=== PATIENT | female | born 1965 | race Caucasian/White ===

== ENCOUNTER 2016-11-05 15:50 | Emergency (ER) | payer OTHER ==
[~2016-11-05] VITALS: Ht 152.4 cm; Wt 87.1 kg
[~2016-11-05 15:50] MED LIST: ABILIFY 15MG15 MG PO; ABILIFY20 M1 PO; ALBUTEROL0.09 MG/A1 INH; AMOXIL500 MG PO; AUGMENTIN 500-1 EACH PO; AUGMENTIN 875-1 EACH PO; AUGMENTIN 875875 MG PO; CORTISPORIN 1%7.5 ML AD; GABAPENTIN300 M2 PO; GUAIFENESIN600 MG PO; HYDROXYZINE PAM50 MG PO; JANUVIA100 M1 PO; MEDROL4 M2 PO; METFORMIN HCL500 M3 PO; MOBIC 15MG15 MG PO; MYRBETRIQ50 MG PO; NICOTINE T21 MG/24 H TOP; OXYBUTYNIN CHLOR5 M2 PO; PAROXETINE HCL40 M1 PO; PREDNISONE 10MG10 M1 PO; PREDNISONE10 M2 PO; PREDNISONE20 MG PO; PROAIR HFA0.09 MG/Ac INH; PROAIR RESPICL90 MCG INH; SPIRIVA18 MCG INH; SYMBICORT 160/41 PUF INH; SYMBICORT 16010.2 GM INH; TRAZODONE100 MG PO; TRIAMCINOL0.1 %/453 TOP; TYLENOL #31 TAB PO; ZITHROMAX Z-PA250 M1 PO
--- NOTE | 2016-11-05 16:51 | ED GENERAL ADULT ---
See Addendum History of Present Illness General Chief Complaint: Dyspnea (COPD, CHF, Other) Stated Complaint: PT IS HAVING PROBLEM BREATHING SPO 94 W/OX 5 Source: patient Exam Limitations: no limitations Vital Signs & Intake/Output Vital Signs & Intake/Output Vital Signs Date Time Temp Pulse Resp B/P Pulse O2 O2 Flow FiO2 Ox Delivery Rate 11/06 2019 98.1 80 24 142/84 93 Nasal 3.0L Cannula 11/05 1807 93 Nasal 3.5L Cannula 11/05 1655 93 Nasal 3.0L Cannula 11/05 1556 98.5 112 20 142/91 93 Nasal 5.0L Cannula Allergies Coded Allergies: NO KNOWN ALLERGIES (10/24/15) Reconcile Medications Albuterol Sulfate 2.5 MG/3 ML (0.083 %) VIAL.NEB 1 Vial INH/GENET PRN RESPIRATORY (Reported) Albuterol Sulfate (Proair Respiclick) 90 MCG AER.POW.BA 2 PUFF INH Q4-6 PRN COPD Aripiprazole (Abilify) 20 MG TABLET 1 TAB PO QAM MENTAL HEALTH (Reported) Budesonide/Formoterol Fumarate (Symbicort 160-4.5 Mcg Inhaler) 10.2 GM HFA.AER.AD 2 PUF INH BID COPD Doxycycline Hyclate (Vibramycin) 100 MG CAPSULE 1 CAP PO BID bronchitis Gabapentin 300 MG CAPSULE 1 CAP PO TID MENTAL HEALTH (Reported) Loperamide HCl (Anti-Diarrheal) 2 MG CAPSULE 3 CAP PO DAILY DIARRHEA ( Reported) Oxybutynin Chloride 5 MG TABLET 1 TAB PO TID BLADDER (Reported) Paroxetine HCl 40 MG TABLET 1 TAB PO DAILY MENTAL HEALTH (Reported) Prednisone 20 MG TABLET 1 TAB PO BID bronchospasm Sitagliptin Phosphate (Januvia) 100 MG TABLET 1 TAB PO DAILY DIABETES Tiotropium [place] (Spiriva) 18 MCG CAP.W.DEV 1 CAP INH DAILY RESPIRATORY ( Reported) Triage Note: PT STATES SHE THINKS SHE IS HAVING COMPLICATIONS WITH HER COPD. PT STATES SHE IS COUGHING UP THICK GREEN/YELLOW SPUTUM AND HAS INCERASED SOB FOR THE PAST 3 DAYS Triage Nurses Notes Reviewed? yes Onset: Abrupt Duration: day(s): Timing: recent history HPI: 11/05/16 6:19 PM 51-year-old female presents to the emergency department for difficulty breathing. The patient has a history of bronchitis and COPD. She came into the emergency department for difficulty breathing. The onset of the symptoms were abrupt, the duration has been several days, the severity is significant as her symptoms required to come to the emergency department for care. On physical exam she does have bilateral expiratory wheezing. She is tachypnea,. She is tripoding. She was treated with albuterol and Atrovent nebulizer. Labs have been sent and a chest x-ray was ordered. The patient is on when necessary oxygen at home. (ROE CIFUENTES DO) Past History Travel History Traveled to [place] past 21 day No Medical History Any Pertinent Medical History? 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 No (ROE CIFUENTES DO) Review of Systems Review of Systems Constitutional: Denies: fever. EENTM: Denies: visual changes. Respiratory: Reports: cough, short of breath. Cardiovascular: Denies: chest pain. GI: Denies: abdominal pain. Genitourinary: Reports: no symptoms. Musculoskeletal: Reports: no symptoms. Skin: Reports: no symptoms. Neurological/Psychological: Reports: no symptoms. Hematologic/Endocrine: Reports: no symptoms. (ROE CIFUENTES DO) Physical Exam Physical Exam General Appearance: alert, awake, anxious, moderate distress Head: atraumatic, normal appearance Eyes: Bilateral: normal appearance, PERRL, EOMI. Ears, Nose, Throat: normal pharynx, normal ENT inspection, hearing grossly normal Neck: normal inspection, supple, full range of motion Respiratory: accessory muscle use, wheezing, respiratory distress Cardiovascular: tachycardic Peripheral Pulses: 4+ radial (R), 4+ radial (L) Gastrointestinal: non-tender Back: decreased range of motion Extremities: normal inspection Neurologic/Psych: no motor/sensory deficits, awake, alert, oriented x 3 Skin: intact, normal color, diaphoresis Core Measures ACS in differential dx? No CVA/TIA Diagnosis: No Severe Sepsis Present: No Septic Shock Present: No (ROE CIFUENTES DO) Progress Differential Diagnoses I considered the following diagnoses in my evaluation of the patient: [Pneumonia , pneumothorax, COPD exacerbation, bronchitis] Plan of Care: Orders Procedure Date/time Status TROPONIN LEVEL 11/05 1749 Complete COMPREHENSIVE METABOLIC PANEL 11/05 1749 Complete CBC WITHOUT DIFFERENTIAL 11/05 1749 Complete Laboratory Tests 11/05/16 1830: Anion Gap 7, Estimated GFR > 60, BUN/Creatinine Ratio 11.7, Glucose 136 H, Calcium 9.4, Total Bilirubin 0.7, AST 38 H, ALT 57 H, Alkaline Phosphatase 97, Troponin I < 0.01, Total Protein 6.9, Albumin 4.0, Globulin 2.9, Albumin/ Globulin Ratio 1.4, CBC w Diff NO MAN DIFF REQ, RBC 4.84, MCV 93.6, MCH 31.0, RDW 12.4, MPV 6.1 L, Gran % 70.1, Lymphocytes % 22.1, Monocytes % 5.1, Eosinophils % 2.2, Basophils % 0.5, Absolute Granulocytes 9.9 H, Absolute Lymphocytes 3.1, Absolute Monocytes 0.7 H, Absolute Eosinophils 0.3, Absolute Basophils 0.1, PUBS MCHC 33.2 Initial ED EKG: No ischemic changes (ROE CIFUENTES DO) Differential Diagnoses I considered the following diagnoses in my evaluation of the patient: Diagnostic Imaging: Viewed by Me: Radiology Read. Discussed w/RAD: Radiology Read. CXR Impression: No consolidation or edema Limited exam. In particular the left lower chest is difficult to assess Comments: Patient reports breathing better. Still with decreased breath sounds, scattered ronchi. Declines further neb treatments, needs to get home. Spouse does not like driving in the dark. (ELOISE GILLIS,CRYS) Departure Departure Referrals: MADISYN FARRIS APRN (PCP/Family) Departure Forms: Customer Survey General Discharge Information Prescriptions: Current Visit Scripts Prednisone 1 TAB PO BID #10 TAB Doxycycline Hyclate (Vibramycin) 1 CAP PO BID #20 CAP Comments The patient was treated with by mouth steroids, albuterol and Atrovent. Chest x -ray was ordered. The patient was signed out to Dr. Arvizu for reevaluation at 7 PM. (ROE ICFUENTES DO) Departure Disposition: HOME OR SELF CARE Condition: Stable Clinical Impression Primary Impression: Acute exacerbation of COPD with asthma Secondary Impressions: Bronchitis, Dyspnea, Leukocytosis, unspecified (ELOISE GILLIS,CRYS) Critical Care Note Critical Care Note Critical Care Time: 30-74 min (ROE CIFUENTES DO)
[2016-11-05] MEDS ORDERED: ALBUTEROL2.5 MG/3 M INH/SOL (17:02)
[2016-11-05] MEDS ORDERED: ANTI-DIARRHEAL2 M1 PO (17:03)
[2016-11-05 18:56] LABS: ABSOLUTE BASOPHIL COUNT 0.1 /CUMM (0.0-0.2); ABSOLUTE EOSINOPHIL COUNT 0.3 /CUMM (0.0-0.7); ABSOLUTE GRANULOCYTE CT 9.9 /CUMM (1.4-6.5); ABSOLUTE LYMPH COUNT 3.1 /CUMM (1.2-3.4); ABSOLUTE MONOCYTE COUNT 0.7 /CUMM (0.10-0.60); BASOPHIL % 0.5 % (0.0-2.0); EOSINOPHIL % 2.2 % (0-5); GRANULOCYTE % 70.1 % (42.2-75.2); HEMATOCRIT 45.3 % (37-47); MEAN CORPUSCULAR HGB CONC 33.2 G/DL (33.0-37.0); MEAN CORPUSCULAR VOLUME 93.6 FL (81.0-99.0); MEAN PLATELET VOLUME 6.1 FL (7.4-10.4); PLATELET COUNT 205 /CUMM (130-400); RBC DISTRIBUTION WIDTH 12.4 % (11.5-14.5); RED BLOOD CELL CT 4.84 /CUMM (4.20-5.40); WHITE BLOOD CELL COUNT 14.1 /CUMM (4.8-10.8)
--- NOTE | 2016-11-05 19:11 | RADIOLOGY REPORT ---
EXAMINATION: XR PORTABLE CHEST CLINICAL INFORMATION: Shortness of breath COMPARISON: 06/13/16 TECHNIQUE: Portable portable frontal view of the chest was obtained. FINDINGS: The study is underpenetrated. Lordotic projection. Cardiac size is unchanged. There is no mediastinal or hilar mass. The central vessels are cephalized. There is no edema. No definite consolidation. The left base is difficult to evaluate but no new focal abnormality suspected. No definite pneumothorax or pleural fluid. IMPRESSION: No consolidation or edema Limited exam. In particular the left lower chest is difficult to assess
[2016-11-05] MEDS ORDERED: PREDNISONE20 M1 PO ×2 (20:18→20:37)
[2016-11-05] MEDS ORDERED: VIBRAMYCIN100 MG PO ×2 (20:18→20:37)
[2016-11-05 20:20] VITALS: BP 142/84
== END 2016-11-05 20:42 ==
LOC: ERH 15:50
PROVIDERS: Emergency Medicine
DX: J44.1 Chronic obstructive pulmonary disease with (acute) exacerbation (principal); D72.829 Elevated white blood cell count, unspecified; R06.00 Dyspnea, unspecified; Z72.0 Tobacco use; E11.9 Type 2 diabetes mellitus without complications; Z79.84 Long term (current) use of oral hypoglycemic drugs
CPT/HCPCS: 1263; 99291

== ENCOUNTER 2016-12-07 15:13 | Emergency (ER) | payer OTHER ==
[~2016-12-07] VITALS: Ht 152.4 cm; Wt 89.4 kg
[~2016-12-07 15:13] MED LIST changes: +ALBUTEROL2.5 MG/3 M INH/SOL; +ANTI-DIARRHEAL2 M1 PO; +PREDNISONE20 M1 PO; +VIBRAMYCIN100 MG PO
--- NOTE | 2016-12-07 16:30 | ED DYSPNEA/ASTHMA COMPLAINT ---
History of Present Illness General Chief Complaint: Dyspnea (COPD, CHF, Other) Stated Complaint: SOB, HX OF COPD Source: patient, old records Exam Limitations: no limitations Vital Signs & Intake/Output Vital Signs & Intake/Output Vital Signs Date Time Temp Pulse Resp B/P B/P Pulse O2 O2 Flow FiO2 Mean Ox Delivery Rate 12/07 1743 98.0 96 20 137/82 93 Nasal 3.0L Cannula 12/07 1735 91 Nasal 2.0L Cannula 12/07 1650 94 Nasal 2.0L Cannula 12/07 1517 98.1 94 20 114/75 92 Room Air Allergies Coded Allergies: NO KNOWN ALLERGIES (10/24/15) Reconcile Medications Albuterol Sulfate 2.5 MG/3 ML (0.083 %) VIAL.NEB 1 Vial INH/GENET PRN RESPIRATORY (Reported) Albuterol Sulfate (Proair Respiclick) 90 MCG AER.POW.BA 2 PUFF INH Q4-6 PRN COPD Aripiprazole (Abilify) 20 MG TABLET 1 TAB PO QAM MENTAL HEALTH (Reported) Budesonide/Formoterol Fumarate (Symbicort 160-4.5 Mcg Inhaler) 10.2 GM HFA.AER.AD 2 PUF INH BID COPD Gabapentin 300 MG CAPSULE 1 CAP PO TID MENTAL HEALTH (Reported) Hydroxyzine Pamoate (Vistaril) 50 MG CAPSULE 1 CAP PO BID PRN ANXIETY ( Reported) Loperamide HCl (Anti-Diarrheal) 2 MG CAPSULE 3 CAP PO DAILY DIARRHEA ( Reported) Methylprednisolone. (Medrol) 4 MG TAB.DS.PK 1 DP PO AD copd 6 on day 1 then reduce by one tablet daily until gone Oxybutynin Chloride 5 MG TABLET 1 TAB PO TID BLADDER (Reported) Paroxetine HCl 40 MG TABLET 1 TAB PO DAILY MENTAL HEALTH (Reported) Sitagliptin Phosphate (Januvia) 100 MG TABLET 1 TAB PO DAILY DIABETES Tiotropium [place] (Spiriva) 18 MCG CAP.W.DEV 1 CAP INH DAILY RESPIRATORY ( Reported) Triage Note: PT STATES SHE HAS HX OF COPD AND IS CURRENTLY AND IS ON 2L OF O2VIA NC WITH 02 SAT OF 92% Triage Nurses Notes Reviewed? yes Onset: Gradual Duration: week(s): (1), constant Timing: recent history Severity: moderate Activities at Onset: none Prior Episodes/Possible Cause: chronic episodes Modifying Factors: Improves With: rest. Worsens With: movement, other (cough). Associated Symptoms: cough HPI: 51 Year old female with history of COPD on home oxygen, bipolar disorder and T2DM presents to the ER for evaluation complaining of progressively worsening shortness of breath nonproductive cough that she's had for the past 3-4 weeks worse over the past 1 week. She was seen here with symptoms began was prescribed prednisone and doxycycline. She states the steroids were helping however after stopping the medication the symptoms came back here she is followed by school health assistant Dr. abernathy. He is normally on 3 L of oxygen at nighttime and 5 L when she is ambulating. She denies having to recently go up on her O2 no fever no chills no chest pain pain with inspiration abdominal pain leg swelling. She is not currently on any steroids. She has not been using her nebulizer treatments at home. (NENA GRAMAJO) Past History Travel History Traveled to [place] past 21 day No Medical History Any Pertinent Medical History? 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 No (NENA GRAMAJO) Review of Systems Review of Systems Constitutional: Reports: see HPI. All Other Systems: Reviewed and Negative Comments Review of systems: See HPI, All other systems negative. Constitutional, no chills no fever, no malaise no weight loss HEENT: No visual changes no sore throat no congestion, no ear pain Cardiovascular: No chest pain , no palpitation , no orthopnea Skin: no rashes, no change in skin Respiratory: dyspnea cough no sputum no hemoptysis GI: No nausea no vomiting, no diarrhea, no bloating/constipation : No dysuria Muscle skeletal: No joint pain, no joint swelling, no back pain, no neck pain, Neurologic: No numbness no confusion, no headache Psych: No stress no depression,. Heme/endocrine: No bruising no bleeding Immunology: No lymphadenopathy (NENA GRAMAJO) Physical Exam Physical Exam General Appearance: well developed/nourished, alert, awake Respiratory: normal breath sounds Comments: Well-developed well-nourished person in no acute distress HEENT: Normal EENT exam; PERRL, EOMI, HEAD is atraumatic. moist mucous membranes. Neck: Supple, no lymphadenopathy, normal range of motion Back: Nontender, no CVA tenderness. Full range of motion Cardiovascular: Regular rate and rhythms no murmurs rubs or gallops, normal JVP Respiratory: Chest nontender.There were no bony deformities, no asymmetry. No respiratory distress. Patient speaking in full complete sentences. Wheezing bilaterally, no rhonchi Abdomen: Soft, nontender nondistended, no appreciable organomegaly. Normal bowel sounds. No rebound/guarding, No ascites. Extremity: No edema, full range of motion of extremities Neuro: Alert oriented x3, motor sensory normal, There were no obvious focal neurologic abnormalities. Skin: No appreciable rash on exposed skin, skin is warm and dry. Psych: Mood and affect is normal, memory and judgment is normal. Core Measures ACS in differential dx? Yes Severe Sepsis Present: No Septic Shock Present: No (NENA GRAMAJO) Progress Differential Diagnosis: asthma, AMI, costochondritis, CHF, COPD, musculoskeletal pain, pericarditis, pulmonary embolism, pneumonia, pneumothorax, unstable angina Plan of Care: Orders Procedure Date/time Status Telemetry/Act English Tutor 12/07 1631 Active BLOOD CULTURE 12/07 1631 Active TROPONIN LEVEL 12/07 1631 Complete COMPREHENSIVE METABOLIC PANEL 12/07 1631 Complete CBC WITHOUT DIFFERENTIAL 12/07 1631 Complete EKG 12/07 1631 Active Laboratory Tests 12/07/16 1719: Anion Gap 8, Estimated GFR > 60, BUN/Creatinine Ratio 12.0, Glucose 151 H, Calcium 9.0, Total Bilirubin 0.7, AST 44 H, ALT 50, Alkaline Phosphatase 90, Troponin I < 0.01, Total Protein 6.6, Albumin 3.7, Globulin 2.9, Albumin/ Globulin Ratio 1.3, CBC w Diff NO MAN DIFF REQ, RBC 4.72, MCV 93.3, MCH 31.2 H, RDW 12.9, MPV 6.2 L, Gran % 75.5 H, Lymphocytes % 18.0 L, Monocytes % 4.3, Eosinophils % 2.1, Basophils % 0.1, Absolute Granulocytes 11.1 H, Absolute Lymphocytes 2.6, Absolute Monocytes 0.6, Absolute Eosinophils 0.3, Absolute Basophils 0, PUBS MCHC 33.5 Microbiology 12/07 1719 BLOOD: Blood Culture - RECD 12/07 1631 BLOOD: Blood Culture - CAN Cancelled: Cancelled via OE: NOT NEEDED Old records reviewed DuoNeb Solu-Medrol IV ordered Case discussed with Dr. cifuentes. Old records reviewed showed the patient's white blood cell count is chronically elevated, sodium 133-134 baseline. 12/07/2016 5:52:41 PM patient reports to feeling improved she states that she does not feel she needs to be admitted. Pending labs x-ray, \ 12/07/2016 6:05:57 PM discussed with the patient off her lab results x-ray findings and plan of care. The patient is refusing admission she was able toward here oxygen saturation 90-91% on her baseline 5 L I discussed with her need for close follow-up with her school health assistant I offered her admission which she is refusing-I discussed with her the risks and harms of leaving prematurely which she understands prescription for prednisone provided (NOEMI GARCIA,NENA) Diagnostic Imaging: Viewed by Me: Radiology Read. Discussed w/RAD: Radiology Read. Radiology Impression: PATIENT: CHRISTI ASCENCIO PRESENT AGE: 51 PATIENT ACCOUNT NO: [id number] : 63 LOCATION: [facility] ORDERING PHYSICIAN: NENA GARCIA SERVICE DATE: 12/07/16 EXAM TYPE: RAD - XRY- PORTABLE CHEST XRAY EXAMINATION: XR PORTABLE CHEST CLINICAL INFORMATION: Dyspnea. COMPARISON: Chest x-ray 11/05/2016. TECHNIQUE: Portable AP view of the chest was obtained. FINDINGS: Low lung volumes. Central vascular congestion without overt edema. Difficult to assess for pleural effusions given overlying soft tissues. Cardiac size is unchanged. There are no acute osseous findings. IMPRESSION: Central vascular congestion without overt edema. Left lower chest remains difficult to assess secondary to overlying soft tissues. DICTATED BY: ROE FONTANA MD DATE/TIME DICTATED:12/07/161756 PATTERN MOLDER:MONIQUE DATE/TIME TRANSCRIBED:12/07/161756 CONFIDENTIAL, DO NOT COPY WITHOUT APPROPRIATE AUTHORIZATION. <Electronically signed in Other Vendor System> SIGNED BY: ROE FONTANA MD 12/07/16 8919 Initial ED EKG: nsr at 90, no acute st seg changes, normal axis Prior EKG: unchanged (01/2016) (NENA GRAMAJO) Departure Departure Disposition: STILL A PATIENT Condition: Stable Clinical Impression Primary Impression: COPD exacerbation Referrals: MADISYN FARRIS APRN (PCP/Family) Additional Instructions: Use your nebulizer machine as needed Medrol Dosepak as discussed follow up with your school health assistant Dr. abernathy tomorrow. Return to the emergency room at anytime sooner if your symptoms worsen or he have any other concerns. Departure Forms: Customer Survey General Discharge Information Prescriptions: Current Visit Scripts Methylprednisolone. (Medrol) 1 DP PO AD #1 DP 6 on day 1 then reduce by one tablet daily until gone (NENA GRAMAJO) PA/COMMERCIAL MARKETING SPECIALIST Co-Sign Statement Statement: ED Attending supervision documentation- [] I saw and evaluated the patient. I have also reviewed all the pertinent lab results and diagnostic results. I agree with the findings and the plan of care as documented in the PA's/COMMERCIAL MARKETING SPECIALIST's documentation. [x] I have reviewed the ED Record and agree with the PA's/COMMERCIAL MARKETING SPECIALIST's documentation. [] Additions or exceptions (if any) to the PAs/COMMERCIAL MARKETING SPECIALIST's note and plan are summarized below: [] (ROE CIFUENTES DO) Critical Care Note Critical Care Note Critical Care Time: non-applicable (NENA GRAMAJO)
[2016-12-07 17:29] LABS: ABSOLUTE BASOPHIL COUNT 0 /CUMM (0.0-0.2); ABSOLUTE EOSINOPHIL COUNT 0.3 /CUMM (0.0-0.7); ABSOLUTE GRANULOCYTE CT 11.1 /CUMM (1.4-6.5); ABSOLUTE LYMPH COUNT 2.6 /CUMM (1.2-3.4); ABSOLUTE MONOCYTE COUNT 0.6 /CUMM (0.10-0.60); BASOPHIL % 0.1 % (0.0-2.0); EOSINOPHIL % 2.1 % (0-5); GRANULOCYTE % 75.5 % (42.2-75.2); MEAN CORPUSCULAR HGB 31.2 PG (27.0-31.0); MEAN CORPUSCULAR HGB CONC 33.5 G/DL (33.0-37.0); MEAN CORPUSCULAR VOLUME 93.3 FL (81.0-99.0); MEAN PLATELET VOLUME 6.2 FL (7.4-10.4); PLATELET COUNT 226 /CUMM (130-400); RBC DISTRIBUTION WIDTH 12.9 % (11.5-14.5); RED BLOOD CELL CT 4.72 /CUMM (4.20-5.40); WHITE BLOOD CELL COUNT 14.7 /CUMM (4.8-10.8)
[2016-12-07 17:43] VITALS: BP 137/82
[2016-12-07] MEDS ORDERED: MEDROL4 M2 PO (17:54)
[2016-12-07] MEDS ORDERED: VISTARIL50 M1 PO (17:56)
--- NOTE | 2016-12-07 18:02 | RADIOLOGY REPORT ---
EXAMINATION: XR PORTABLE CHEST CLINICAL INFORMATION: Dyspnea. COMPARISON: Chest x-ray 11/05/2016. TECHNIQUE: Portable AP view of the chest was obtained. FINDINGS: Low lung volumes. Central vascular congestion without overt edema. Difficult to assess for pleural effusions given overlying soft tissues. Cardiac size is unchanged. There are no acute osseous findings. IMPRESSION: Central vascular congestion without overt edema. Left lower chest remains difficult to assess secondary to overlying soft tissues.
== END 2016-12-07 18:23 ==
LOC: ERH 15:13
PROVIDERS: Physician Assistant Medical
DX: J44.1 Chronic obstructive pulmonary disease with (acute) exacerbation (principal); Z72.0 Tobacco use
CPT/HCPCS: 1263; 87040; 93005; 93010; 96374; J2930

== ENCOUNTER 2017-09-14 13:52 | Emergency (ER) | payer OTHER ==
[~2017-09-14] VITALS: Ht 152.4 cm; Wt 92.5 kg
[~2017-09-14 13:52] MED LIST changes: +CYCLOBENZAPRINE5 M2 PO; +MOBIC7.5 M1 PO; +NICOTINE PATCH1 EAC2 TOP; +NYSTATIN15 G1 TOP; +VISTARIL50 M1 PO
--- NOTE | 2017-09-14 15:45 | ED GENERAL ADULT ---
History of Present Illness General Chief Complaint: General Adult Stated Complaint: "I THINK I HAVE THE FLU" Source: patient Exam Limitations: no limitations Vital Signs & Intake/Output Vital Signs & Intake/Output Vital Signs Date Time Temp Pulse Resp B/P B/P Pulse O2 O2 Flow FiO2 Mean Ox Delivery Rate 09/14 1619 99.4 115 18 138/76 98 Room Air 09/14 1514 97 09/14 1406 99.9 120 20 133/85 94 Nasal 4.0L Cannula Allergies Coded Allergies: No Known Allergies (09/14/17) Reconcile Medications Albuterol Sulfate 2.5 MG/3 ML (0.083 %) VIAL.NEB 1 Vial INH/GENET PRN RESPIRATORY (Reported) Albuterol Sulfate (Proair Respiclick) 90 MCG AER.POW.BA 2 PUFF INH Q4-6 PRN COPD Aripiprazole (Abilify) 20 MG TABLET 1 TAB PO QPM MENTAL HEALTH (Reported) Azithromycin (Zithromax) 250 MG TABLET 1 DP PO AD bronchitis 2 the first day followed by 1 for days 2-5 Benzonatate 200 MG CAPSULE 1 CAP PO TIDPRN cough Budesonide/Formoterol Fumarate (Symbicort 160-4.5 Mcg Inhaler) 10.2 GM HFA.AER.AD 2 PUF INH BID COPD Cyclobenzaprine HCl 5 MG TABLET 1 TAB PO TIDPRN PRN SPASM Gabapentin 300 MG CAPSULE 1 CAP PO TID MENTAL HEALTH (Reported) Hydroxyzine Pamoate (Vistaril) 50 MG CAPSULE 2 CAP PO QPM SLEEP (Reported) Loperamide HCl (Anti-Diarrheal) 2 MG CAPSULE 3 CAP PO DAILY DIARRHEA ( Reported) Meloxicam (Mobic) 7.5 MG TABLET 1 TAB PO DAILY PRN PAIN Nicotine (Nicotine Patch) 14 MG/24 HOUR PATCH.TD24 14 MG TOP Q24 smoking cessation APPLY 1 PATCH DAILY Nystatin 100,000 UNIT/GRAM CREAM..G. 1 ARUNA TOP BID FUNGAL INFECTION APPLY TWICE DAILY TO AFFECTED AREA Oseltamivir Phosphate (Tamiflu) 75 MG CAPSULE 1 CAP PO BID flu symptoms Oxybutynin Chloride 5 MG TABLET 1 TAB PO TID BLADDER (Reported) Paroxetine HCl 40 MG TABLET 1 TAB PO DAILY MENTAL HEALTH (Reported) Prednisone 50 MG TABLET 1 TAB PO DAILY bronchiutis Prednisone 10 MG TABLET 10 MG PO DAILY copd take 4 tabs on 05/20. take 3 tabs on 05/21 and 05/22 take 2 tabs on 05/23 and 05/24 take 1 tab on 05/25 and 05/26 Sitagliptin Phosphate (Januvia) 100 MG TABLET 1 TAB PO DAILY DIABETES Tiotropium [place] (Spiriva) 18 MCG CAP.W.DEV 1 CAP INH DAILY RESPIRATORY ( Reported) Triage Note: PT TO ED C/O FLU LIKE S/S SINCE YESTERDAY. PT WITH H/O COPD. PT ON 3LNC AT THIS TIME, STATES SHE WEARS IT WHEN SHE GOES OUT AND AT BEDTIME. STATES EVERYONE IN HER HOUSE HAS THE FLU. Triage Nurses Notes Reviewed? yes Onset: Abrupt Duration: day(s): Timing: recent history Injury Environment: home Severity: moderate, severe No Modifying Factors: none HPI: 52-year-old female comes into the emergency room with complaints of cough and runny nose sore throat congestion with some mucus production. Some associated subjective fever chills body aches at home. She reports that 2 family members in the house are sick with similar symptoms. She has a history of COPD and is on oxygen intermittently at home. She mainly uses it when she exerts herself. She reports that her breathing feels baseline for her. Denies any other associated symptoms at this time. Past History Travel History Traveled to [place] past 21 day No Medical History Any Pertinent Medical History? 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 No Review of Systems Review of Systems Constitutional: Reports: see HPI. EENTM: Reports: see HPI. Respiratory: Reports: see HPI. Cardiovascular: Reports: no symptoms. GI: Reports: no symptoms. Genitourinary: Reports: no symptoms. Musculoskeletal: Reports: no symptoms. Skin: Reports: no symptoms. Neurological/Psychological: Reports: no symptoms. Hematologic/Endocrine: Reports: no symptoms. Immunologic/Allergic: Reports: no symptoms. All Other Systems: Reviewed and Negative Physical Exam Physical Exam General Appearance: well developed/nourished, alert, awake Head: atraumatic Eyes: Bilateral: normal appearance. Ears, Nose, Throat: normal ENT inspection, hearing grossly normal Neck: normal inspection Respiratory: decreased breath sounds, wheezing Cardiovascular: regular rate/rhythm, tachycardia Back: normal inspection Extremities: normal inspection, no edema Neurologic/Psych: awake, alert, oriented x 3, normal gait, normal mood/affect Skin: intact, normal color Core Measures ACS in differential dx? No CVA/TIA Diagnosis: No Sepsis Present: No Sepsis Focused Exam Completed? No Progress Differential Diagnoses I considered the following diagnoses in my evaluation of the patient: Bronchitis, influenza, pneumonia, COPD, strep throat, sinusitis, Plan of Care: Orders Procedure Date/time Status THROAT CULTURE W/QUICK STREP 09/14 1540 Active RAPID VIRAL INFLUENZA A 09/14 1406 Complete Microbiology 09/14 1410 NASOPHARYN: Influenza Virus A & B Rapid Smear - COMP Diagnostic Imaging: Viewed by Me: Radiology Read. Discussed w/RAD: Radiology Read. Radiology Impression: PATIENT: CHRISTI ASCENCIO PRESENT AGE: 52 PATIENT ACCOUNT NO: [id number] : 63 LOCATION: [facility] ORDERING PHYSICIAN: Dany GARCIA SERVICE DATE: 09/14/17-1540 EXAM TYPE: RAD - XRY-CHEST XRAY, TWO VIEWS EXAMINATION: XR CHEST CLINICAL INFORMATION: Cough and shortness of breath. COMPARISON: Chest x-ray 05/14/2017 TECHNIQUE: 2 views of the chest were obtained. FINDINGS: No significant abnormality is noted involving the heart, lungs, mediastinum, bony thorax or soft tissues. IMPRESSION: Unremarkable examination. DICTATED BY: Santos Zacarias MD DATE/TIME DICTATED:1611 FLOOR HAND:MONIQUE DATE/TIME TRANSCRIBED:09/14/171611 CONFIDENTIAL, DO NOT COPY WITHOUT APPROPRIATE AUTHORIZATION. <Electronically signed in Other Vendor System> SIGNED BY: Santos Zacarias MD 09/14/17 9056 Initial ED EKG: none Comments: 09/14/2017 5:12:03 PM Patient clinically looks well. Patient is in no apparent distress. Patient is nontoxic-appearing. Patient resting comfortably in room. Symptoms are most consistent with influenza versus bronchitis. Due to her COPD history patient was covered with a Z-Cesar as well. Rest. Drink plenty of fluids. She feels well enough to go home. She is at her normal baseline of function in regards to her breathing. Departure Departure Disposition: HOME OR SELF CARE Condition: Stable Clinical Impression Primary Impression: Viral syndrome Referrals: Yenifer Richardson APRN (PCP/Family) Additional Instructions: Taking Z-Cesar, prednisone, and Tamiflu as prescribed. Follow-up with PCP. Return if any other concerns. Please go over all results of today's visit with your primary care doctor. Contact your primary care doctor to let them know you were here in the emergency room. There may be nonspecific findings which may not be related to your visit today here in the emergency room but may require further evaluation and chronic monitoring by your primary care doctor. If you had a laceration today the chance of foreign body always remains. You should follow-up with your primary care doctor for recheck in 3-5 days for a wound check. If you had an x-ray done there is a chance that a fracture could have been missed on initial read and you should follow-up with your primary care doctor for repeat x-rays if symptoms persist. If your blood pressure was elevated here in the emergency room please have rechecked by [facility] primary care doctor within the next 48. If you were prescribed a narcotic here in the emergency room or any type of controlled substances you're not allowed to drive while taking this medication or operate any type of heavy machinery. Narcotics can make you feel lightheaded dizziness nausea and can cause constipation. You may need to berry picker a stool softener. Thank you for choosing [facility] emergency room. Please return to the emergency room immediately if you have any other concerns worsening of symptoms. Departure Forms: Customer Survey General Discharge Information Prescriptions: Current Visit Scripts Azithromycin (Zithromax) 1 DP PO AD #6 TAB 2 the first day followed by 1 for days 2-5 Prednisone 1 TAB PO DAILY #5 TAB Oseltamivir Phosphate (Tamiflu) 1 CAP PO BID #10 CAP Benzonatate 1 CAP PO TIDPRN #30 CAP Critical Care Note Critical Care Note Critical Care Time: non-applicable
--- NOTE | 2017-09-14 16:15 | RADIOLOGY REPORT ---
EXAMINATION: XR CHEST CLINICAL INFORMATION: Cough and shortness of breath. COMPARISON: Chest x-ray 05/14/2017 TECHNIQUE: 2 views of the chest were obtained. FINDINGS: No significant abnormality is noted involving the heart, lungs, mediastinum, bony thorax or soft tissues. IMPRESSION: Unremarkable examination.
[2017-09-14 16:19] VITALS: BP 138/76
[2017-09-14] MEDS ORDERED: ZITHROMAX250 M2 PO (16:43)
[2017-09-14] MEDS ORDERED: BENZONATATE200 M1 PO (16:43)
[2017-09-14] MEDS ORDERED: TAMIFLU75 M1 PO (16:43)
[2017-09-14] MEDS ORDERED: PREDNISONE50 M1 PO (16:43)
== END 2017-09-14 16:50 ==
LOC: ERH 13:52
DX: B34.9 Viral infection, unspecified (principal)
CPT/HCPCS: 1263; 71046; 87804; 87804-59

== ENCOUNTER 2017-11-27 08:58 | Emergency (ER) | payer OTHER ==
[~2017-11-27] VITALS: Ht 154.9 cm; Wt 92.5 kg
[~2017-11-27 08:58] MED LIST changes: +BENZONATATE200 M1 PO; +PREDNISONE50 M1 PO; +TAMIFLU75 M1 PO; +ZITHROMAX250 M2 PO
--- NOTE | 2017-11-27 09:56 | ED INFLUENZA/URI COMPLAINT ---
History of Present Illness General Chief Complaint: General Adult Stated Complaint: CHEST CONGESTION,SOB,SORE THROAT Source: patient, old records Exam Limitations: no limitations Vital Signs & Intake/Output Vital Signs & Intake/Output Vital Signs Date Time Temp Pulse Resp B/P B/P Pulse O2 O2 Flow FiO2 Mean Ox Delivery Rate 11/27 1107 94 11/27 1000 94 Room Air 11/27 0917 98.1 105 26 127/80 92 Room Air Allergies Coded Allergies: No Known Allergies (09/14/17) Reconcile Medications Albuterol Sulfate 2.5 MG/3 ML (0.083 %) VIAL.NEB 1 Vial INH/GENET PRN RESPIRATORY (Reported) Albuterol Sulfate (Proair Respiclick) 90 MCG AER.POW.BA 2 PUFF INH Q4-6 PRN COPD Aripiprazole (Abilify) 20 MG TABLET 1 TAB PO QPM MENTAL HEALTH (Reported) Azithromycin (Zithromax) 250 MG TABLET 1 DP PO AD bronchitis 2 the first day followed by 1 for days 2-5 Benzonatate 200 MG CAPSULE 1 CAP PO TIDPRN cough Budesonide/Formoterol Fumarate (Symbicort 160-4.5 Mcg Inhaler) 10.2 GM HFA.AER.AD 2 PUF INH BID COPD Cyclobenzaprine HCl 5 MG TABLET 1 TAB PO TIDPRN PRN SPASM Gabapentin 300 MG CAPSULE 1 CAP PO TID MENTAL HEALTH (Reported) Hydroxyzine Pamoate (Vistaril) 50 MG CAPSULE 2 CAP PO QPM SLEEP (Reported) Loperamide HCl (Anti-Diarrheal) 2 MG CAPSULE 3 CAP PO DAILY DIARRHEA ( Reported) Meloxicam (Mobic) 7.5 MG TABLET 1 TAB PO DAILY PRN PAIN Nicotine (Nicotine Patch) 14 MG/24 HOUR PATCH.TD24 14 MG TOP Q24 smoking cessation APPLY 1 PATCH DAILY Nystatin 100,000 UNIT/GRAM CREAM..G. 1 ARUNA TOP BID FUNGAL INFECTION APPLY TWICE DAILY TO AFFECTED AREA Oseltamivir Phosphate (Tamiflu) 75 MG CAPSULE 1 CAP PO BID flu symptoms Oxybutynin Chloride 5 MG TABLET 1 TAB PO TID BLADDER (Reported) Paroxetine HCl 40 MG TABLET 1 TAB PO DAILY MENTAL HEALTH (Reported) Prednisone 50 MG TABLET 1 TAB PO DAILY bronchiutis Prednisone 10 MG TABLET 10 MG PO DAILY copd take 4 tabs on 05/20. take 3 tabs on 05/21 and 05/22 take 2 tabs on 05/23 and 05/24 take 1 tab on 05/25 and 05/26 Sitagliptin Phosphate (Januvia) 100 MG TABLET 1 TAB PO DAILY DIABETES Tiotropium [place] (Spiriva) 18 MCG CAP.W.DEV 1 CAP INH DAILY RESPIRATORY ( Reported) Triage Note: PT PRESENTS TO THE ER C/O SOB AND SINUS CONGESTION AND SORE THROAT. ONSET 2 DAYS AGO. PT STATES HER CHEST IS SORE ESPECIALLY WHEN SHE TAKES A DEEP BREATH. Triage Nurses Notes Reviewed? yes HPI: Patient presents for evaluation of sinus congestion, chest congestion, sore throat and shortness of breath that have been worsening over the past 2-3 days. Patient states she's been blowing her nose a lot and also refers an intermittent mild cough with occasional thick phlegm production. Patient denies any associated fever, chest pain, leg swelling, leg pain. Patient has been using her MDIs (Symbicort, Spiriva and pro-air) without improvement. Patient states she has had increasing and moderate to severe dyspnea on exertion. Nothing at this point seems to make her feel better than perhaps some mild improvement in symptoms with an increased use of her home oxygen. Past History Travel History Traveled to [place] past 21 day No Medical History Any Pertinent Medical History? 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 No Review of Systems Review of Systems Constitutional: Reports: no symptoms. EENTM: Reports: no symptoms. Respiratory: Reports: see HPI. Cardiovascular: Reports: no symptoms. GI: Reports: no symptoms. Genitourinary: Reports: no symptoms. Musculoskeletal: Reports: no symptoms. Skin: Reports: no symptoms. Neurological/Psychological: Reports: no symptoms. Hematologic/Endocrine: Reports: no symptoms. Immunologic/Allergic: Reports: no symptoms. All Other Systems: Reviewed and Negative Physical Exam Physical Exam Ears, Nose, Throat: SEE BELOW Comments: Gen.: Well-nourished, well-developed, no acute respiratory distress. Mild to moderate respiratory distress. Head: Normocephalic, atraumatic. Eyes: Normal inspection bilaterally Ears: Normal inspection bilaterally Nose: Normal inspection Throat/mouth : Moist mucosa Neck: Supple, full range of motion, no goiter Heart: Regular rate and rhythm, no murmurs rubs or gallops Lungs: Scattered end expiratory rhonchi without overt wheezing, bilaterally diminished breath sounds Chest: Nontender Back: Normal range of motion Abdomen: Soft, nontender, nondistended, normal bowel sounds Extremities: Normal range of motion grossly, equal radial pulses, no cyanosis clubbing or edema, calves nontender Neurologic: Cranial nerves grossly intact, speech is clear Skin: warm and dry Psychiatric: Calm, cooperative, no apparent delusions or hallucinations Core Measures Sepsis Present: No Sepsis Focused Exam Completed? No Progress Differential Diagnosis: copd EXACERBATION, chf, PNEUMONIA, BRONCHITIS Plan of Care: Orders Procedure Date/time Status TROPONIN LEVEL 11/27 912 Complete MAGNESIUM 11/27 912 Complete D-DIMER 11/27 912 Complete CBC WITHOUT DIFFERENTIAL 11/27 912 Complete BASIC METABOLIC PANEL 11/27 912 Complete EKG 11/27 899 Active Laboratory Tests 11/27/17 0950: Anion Gap 11, Estimated GFR > 60, BUN/Creatinine Ratio 15.0, Glucose 411 H, Calcium 8.9, Magnesium 1.5 L, Troponin I < 0.01, D-Dimer High Sensitivty < 200, CBC w Diff NO MAN DIFF REQ, RBC 4.35, MCV 92.5, MCH 31.1 H, MCHC 33.6, RDW 12.4 , MPV 6.6 L, Gran % 82.5 H, Lymphocytes % 11.6 L, Monocytes % 3.6, Eosinophils % 2.3, Basophils % 0, Absolute Granulocytes 10.6 H, Absolute Lymphocytes 1.5, Absolute Monocytes 0.5, Absolute Eosinophils 0.3, Absolute Basophils 0 Diagnostic Imaging: Discussed w/RAD: Radiology Read. CXR Impression: PATIENT: CHRISTI ASCENCIO PRESENT AGE: 52 PATIENT ACCOUNT NO: [id number] : 63 LOCATION: [facility] ORDERING PHYSICIAN: Navid Buitrago MD SERVICE DATE: 11/27/17 EXAM TYPE: RAD - XRY-CHEST XRAY, TWO VIEWS EXAMINATION: XR CHEST CLINICAL INFORMATION: Dyspnea, phlegm, chest congestion. History of COPD. COMPARISON: 09/14/2017 TECHNIQUE: 2 views performed. FINDINGS: The cardiac silhouette is mildly enlarged, unchanged. Normal pleural reflection is seen at the left cardiophrenic angle. The lungs and pleural spaces are clear. No evidence of pneumonia. Mild peribronchial thickening. IMPRESSION: No acute cardiopulmonary abnormality. DICTATED BY: Gareth Ambrose MD DATE/TIME DICTATED:11/27/171030 [employer]:MONIQUE DATE/ TIME TRANSCRIBED:11/27/171030 CONFIDENTIAL, DO NOT COPY WITHOUT APPROPRIATE AUTHORIZATION. <Electronically signed in Other Vendor System> SIGNED BY: Gareth Ambrose MD 11/27/171035 Initial ED EKG: SINUS TACHYCARDIA WITH A HEART RATE OF 106 Prior EKG: unchanged Comments: 11/27/2017 11:33:21 AM I updated Christi On Her Test Results after Her DuoNeb Treatment. Auscultation of Lungs Revealed Improved Air Entry and Scant End Expiratory Wheezing. She Has Just Had an Albuterol Nebulizer and Lung Sounds Are Now Clear. She Is Feeling Better. Departure Departure Disposition: HOME OR SELF CARE Condition: Stable Clinical Impression Primary Impression: COPD exacerbation Secondary Impressions: Viral syndrome Referrals: Yenifer Richardson APRN (PCP/Family) Additional Instructions: Continue your nebulizer and inhalers at home. Prednisone and amoxicillin as prescribed. Follow-up with your primary care physician or your special education math teacher on Wednesday for reevaluation. Return if any concerns or sudden worsening. Please note that there might be incidental findings in your evaluation that are unrelated to the current emergency department visit. Please notify your primary care doctor about this emergency department visit in order to obtain and review all of the testing performed so that these incidental findings can be monitored as needed. If you had an x-ray performed, please understand that some fractures may not be seen on the initial set of x-rays. If your symptoms persist you might need a repeat set of x-rays to check for such a fracture. If you had a laceration evaluated, please understand that foreign bodies such as glass or wood may not be visible to the naked eye or on plain x-rays. If the wound becomes red, swollen, increasingly more painful or if there is any drainage from the wound, please have it reevaluated by a physician for the possibility of a retained foreign body. If you're unable to follow up as outlined in the discharge instructions please return to the emergency department. Thank you for choosing the [facility] Emergency Department for your care. It was a pleasure to serve you today. Navid Buitrago M.D. [facility] Departure Forms: Customer Survey General Discharge Information Prescriptions: Current Visit Scripts Amoxicillin 1 CAP PO TID #21 CAP Prednisone (Deltasone) 3 TAB PO DAILY #12 TAB BEGIN TOMORROW Critical Care Note Critical Care Note Critical Care Time: 30-74 min
[2017-11-27 10:03] LABS: ABSOLUTE BASOPHIL COUNT 0 /CUMM (0.0-0.2); ABSOLUTE EOSINOPHIL COUNT 0.3 /CUMM (0.0-0.7); ABSOLUTE GRANULOCYTE CT 10.6 /CUMM (1.4-6.5); ABSOLUTE LYMPH COUNT 1.5 /CUMM (1.2-3.4); ABSOLUTE MONOCYTE COUNT 0.5 /CUMM (0.10-0.60); BASOPHIL % 0 % (0.0-2.0); EOSINOPHIL % 2.3 % (0-5); GRANULOCYTE % 82.5 % (42.2-75.2); HEMATOCRIT 40.2 % (37-47); MEAN CORPUSCULAR HGB 31.1 PG (27.0-31.0); MEAN CORPUSCULAR HGB CONC 33.6 G/DL (33.0-37.0); MEAN CORPUSCULAR VOLUME 92.5 FL (81.0-99.0); MEAN PLATELET VOLUME 6.6 FL (7.4-10.4); PLATELET COUNT 199 /CUMM (130-400); RBC DISTRIBUTION WIDTH 12.4 % (11.5-14.5); RED BLOOD CELL CT 4.35 /CUMM (4.20-5.40); WHITE BLOOD CELL COUNT 12.8 /CUMM (4.8-10.8)
--- NOTE | 2017-11-27 10:36 | RADIOLOGY REPORT ---
EXAMINATION: XR CHEST CLINICAL INFORMATION: Dyspnea, phlegm, chest congestion. History of COPD. COMPARISON: 09/14/2017 TECHNIQUE: 2 views performed. FINDINGS: The cardiac silhouette is mildly enlarged, unchanged. Normal pleural reflection is seen at the left cardiophrenic angle. The lungs and pleural spaces are clear. No evidence of pneumonia. Mild peribronchial thickening. IMPRESSION: No acute cardiopulmonary abnormality.
[2017-11-27 11:30] VITALS: BP 133/86
[2017-11-27] MEDS ORDERED: DELTASONE20 MG PO (11:36)
[2017-11-27] MEDS ORDERED: AMOXICILLIN500 M2 PO (11:36)
== END 2017-11-27 11:43 ==
LOC: ERH 08:58
PROVIDERS: Emergency Medicine
DX: J44.1 Chronic obstructive pulmonary disease with (acute) exacerbation (principal); B34.9 Viral infection, unspecified; Z87.891 Personal history of nicotine dependence
CPT/HCPCS: 1263; 71046; 93005; 93010

== ENCOUNTER 2018-01-12 10:59 | Emergency (ER) | payer OTHER ==
[~2018-01-12] VITALS: Ht 152.4 cm; Wt 92.5 kg
[~2018-01-12 10:59] MED LIST changes: +AMOXICILLIN500 M2 PO; +DELTASONE20 MG PO
--- NOTE | 2018-01-12 12:00 | RADIOLOGY REPORT ---
EXAMINATION: XR CHEST CLINICAL INFORMATION: SOB. COMPARISON: None TECHNIQUE: 2 views of the chest were obtained. FINDINGS: The lungs are well-expanded and clear. There is mild cardiomegaly. Pulmonary vascularity is normal. No gross bony abnormality seen. IMPRESSION: Mild cardiomegaly otherwise no acute cardiopulmonary process seen.
[2018-01-12 12:11] LABS: ABSOLUTE BASOPHIL COUNT 0 /CUMM (0.0-0.2); ABSOLUTE EOSINOPHIL COUNT 0.3 /CUMM (0.0-0.7); ABSOLUTE GRANULOCYTE CT 9.7 /CUMM (1.4-6.5); ABSOLUTE LYMPH COUNT 1.6 /CUMM (1.2-3.4); ABSOLUTE MONOCYTE COUNT 0.6 /CUMM (0.10-0.60); BASOPHIL % 0.3 % (0.0-2.0); EOSINOPHIL % 2.6 % (0-5); GRANULOCYTE % 79.5 % (42.2-75.2); HEMATOCRIT 40.1 % (37-47); MEAN CORPUSCULAR HGB 31.6 PG (27.0-31.0); MEAN CORPUSCULAR HGB CONC 34.6 G/DL (33.0-37.0); MEAN CORPUSCULAR VOLUME 91.3 FL (81.0-99.0); MEAN PLATELET VOLUME 6.7 FL (7.4-10.4); PLATELET COUNT 233 /CUMM (130-400); RBC DISTRIBUTION WIDTH 11.7 % (11.5-14.5); RED BLOOD CELL CT 4.39 /CUMM (4.20-5.40); WHITE BLOOD CELL COUNT 12.2 /CUMM (4.8-10.8)
[2018-01-12] MEDS ORDERED: MELATONIN5 M7 (13:24)
[2018-01-12] MEDS ORDERED: LOSARTAN POTASS50 M1 PO (13:24)
--- NOTE | 2018-01-12 13:30 | ED DYSPNEA/ASTHMA COMPLAINT ---
History of Present Illness General Chief Complaint: Dyspnea (COPD, CHF, Other) Stated Complaint: SOB SINCE WEDNESDAY/SORE THROAT Source: patient Exam Limitations: no limitations Vital Signs & Intake/Output Vital Signs & Intake/Output Vital Signs Date Time Temp Pulse Resp B/P B/P Pulse O2 O2 Flow FiO2 Mean Ox Delivery Rate 01/12 1422 95 Nasal 5.0L Cannula 01/12 1422 118 20 163/81 93 Room Air 01/12 1352 145/80 01/12 1343 109 20 92 Room Air 01/12 1315 93 Room Air 01/12 1253 98.7 102 20 138/91 93 Nasal 3.0L Cannula 01/12 1105 98.2 109 20 142/85 96 Nasal 3.0L Cannula Allergies Coded Allergies: No Known Allergies (09/14/17) Reconcile Medications Albuterol Sulfate 2.5 MG/3 ML (0.083 %) VIAL.NEB 1 Vial INH/GENET PRN RESPIRATORY (Reported) Albuterol Sulfate (Proair Respiclick) 90 MCG AER.POW.BA 2 PUFF INH Q4-6 PRN COPD Amoxicillin 875 MG TABLET 1 TAB PO BID bronchitis Aripiprazole (Abilify) 20 MG TABLET 1 TAB PO QPM MENTAL HEALTH (Reported) Budesonide/Formoterol Fumarate (Symbicort 160-4.5 Mcg Inhaler) 10.2 GM HFA.AER.AD 2 PUF INH BID COPD Gabapentin 300 MG CAPSULE 1 CAP PO TID MENTAL HEALTH (Reported) Hydroxyzine Pamoate (Vistaril) 50 MG CAPSULE 2 CAP PO QPM SLEEP (Reported) Loperamide HCl (Anti-Diarrheal) 2 MG CAPSULE 3 CAP PO DAILY DIARRHEA ( Reported) Losartan Potassium 50 MG TABLET 1 TAB PO DAILY HTN (Reported) Melatonin 5 MG TABLET SLEEP (Reported) Nystatin 100,000 UNIT/ML ORAL.SUSP 5 ML PO 4 TIMES/DAY thrush Oxybutynin Chloride 5 MG TABLET 1 TAB PO TID BLADDER (Reported) Paroxetine HCl 40 MG TABLET 1 TAB PO DAILY MENTAL HEALTH (Reported) Prednisone 10 MG TABLET 1 DOSE PO DAILY bronchitis take 5 tabs day 1 4 tabs day 2 3 tabs day 3 2 tabs day 4 1 tab day 5 Sitagliptin Phosphate (Januvia) 100 MG TABLET 1 TAB PO DAILY DIABETES Tiotropium [place] (Spiriva) 18 MCG CAP.W.DEV 1 CAP INH DAILY RESPIRATORY ( Reported) Triage Note: PT C/O SOB SINCE WEDNESDAY. STATES SHE IS HAVING TROUBLE BREATHING EVEN WITH THE OXYGEN ON. SHE USUALLY ONLY USES O2 WHEN SHE GOES OUT BUT NOW SHE CAN ONLY WALK A FEW FEET WITHOUT GETTING SOB. PT DENIES CP BUT STATES SHE DOES HAVE A ST. TC DONE IN TRIAGE Triage Nurses Notes Reviewed? yes Onset: Gradual Duration: day(s): Timing: recent history Severity: moderate HPI: 52YO FEMALE with hx of COPD on home O2, DM, bipolar disorder presents to ED complaining of dyspnea and sore throat x 5 days. Patient took over the counter medication for sinus pain and reports mild relief. The patient reports cough intermittently productive of green sputum. The patient denies sick contact. Patient states that a few weeks ago she had thrush she began taking nystatin swish and swallow however she did not finish full course. Patient does report yellow discoloration to her tongue and is wondering if she has thrush at this time. The patient denies chest pain, nausea, vomiting, fevers, chills, hemoptysis. (Denita GARCIA,Patti Swann) Past History Travel History Traveled to [place] past 21 day No Medical History Any Pertinent Medical History? 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 No (Patti Casey) Review of Systems Review of Systems Constitutional: Reports: no symptoms. EENTM: Reports: see HPI. Respiratory: Reports: see HPI. Cardiovascular: Reports: no symptoms. GI: Reports: no symptoms. Genitourinary: Reports: no symptoms. Musculoskeletal: Reports: no symptoms. Skin: Reports: no symptoms. Neurological/Psychological: Reports: no symptoms. Hematologic/Endocrine: Reports: no symptoms. Immunologic/Allergic: Reports: no symptoms. All Other Systems: Reviewed and Negative (Denita GARCIA,Patti Swann) Physical Exam Physical Exam General Appearance: well developed/nourished, no apparent distress, alert, awake Head: atraumatic, normal appearance Eyes: Bilateral: normal appearance. Ears, Nose, Throat: hearing grossly normal, erythema on tongue and pharynx with yellow discoloration to tongue Neck: normal inspection, supple, full range of motion Respiratory: normal breath sounds, no respiratory distress, lungs clear Cardiovascular: tachycardia Peripheral Pulses: 2+ radial (R), 2+ radial (L) Extremities: normal inspection, normal range of motion, bilateral mild nonpitting edema Neurologic/Psych: awake, alert, oriented x 3 Skin: intact, normal color, warm/dry Core Measures ACS in differential dx? Yes CVA/TIA Diagnosis No Sepsis Present: No Sepsis Focused Exam Completed? No (Denita GARCIA,Patti Swann) Progress Differential Diagnosis: AMI, bronchitis, CHF, COPD, pulmonary embolism, pneumonia, pneumothorax, unstable angina Plan of Care: Orders Procedure Date/time Status FingerStick- Glucose 01/12 1315 Active TROPONIN LEVEL 01/12 1128 Complete COMPREHENSIVE METABOLIC PANEL 01/12 1128 Complete CBC WITHOUT DIFFERENTIAL 01/12 1128 Complete EKG 01/12 1108 Active THROAT CULTURE W/QUICK STREP 01/12 1107 Active Laboratory Tests 01/12/ 1156: Anion Gap 13, Estimated GFR > 60, BUN/Creatinine Ratio 12.5, Glucose 408 H, Calcium 9.5, Total Bilirubin 0.5, AST 89 H, ALT 89 H, Alkaline Phosphatase 105 , Troponin I < 0.01, Total Protein 6.5, Albumin 3.6, Globulin 2.9, Albumin/ Globulin Ratio 1.2, CBC w Diff NO MAN DIFF REQ, RBC 4.39, MCV 91.3, MCH 31.6 H, MCHC 34.6, RDW 11.7, MPV 6.7 L, Gran % 79.5 H, Lymphocytes % 12.9 L, Monocytes % 4.7, Eosinophils % 2.6, Basophils % 0.3, Absolute Granulocytes 9.7 H, Absolute Lymphocytes 1.6, Absolute Monocytes 0.6, Absolute Eosinophils 0.3, Absolute Basophils 0 Patient's rapid strep test is negative. Patient's labs are stable compared to her previous studies. Patient has hyperglycemia on chemistry panel however fingerstick blood glucoses around 300. Patient admits to being noncompliant with her diabetic medication, she also ate pie this morning. Patient informed her high reading and counseled on medication adherence and diabetic diet. Patient's chest x-ray is clear, no evidence of pneumonia. Physical exam shows signs of possible thrush. We will treat with prednisone and amoxicillin for her likely bronchitis and nystatin for possible thrush. Patient ambulatory on oxygen with stable O2 saturation. She feels comfortable going home at this time. Patient's O2 saturation is normally between 92-93% at rest on room air, she states this is her baseline. The diagnosis of pulmonary embolism was considered however she has no chest pain, no recent travels, no hemoptysis, no unilateral leg swelling, no history of blood clots, low suspicion for acute pulmonary embolism based on her current symptoms including mucus production and sore throat. The patient is in no acute distress, nontoxic appearing. The patient agrees with the plan of care. The patient was seen and evaluated by Dr. Martinez who agrees with our plan. Diagnostic Imaging: Viewed by Me: Radiology Read. Discussed w/RAD: Radiology Read. CXR Impression: PATIENT: CHRISTI ASCENCIO PRESENT AGE: 52 PATIENT ACCOUNT NO: [id number] : 63 LOCATION: [facility] ORDERING PHYSICIAN: Navid Jose DO (TBS) SERVICE DATE: 01/12/18 EXAM TYPE: RAD - XRY- CHEST XRAY, TWO VIEWS EXAMINATION: XR CHEST CLINICAL INFORMATION: SOB. COMPARISON: None TECHNIQUE: 2 views of the chest were obtained. FINDINGS: The lungs are well-expanded and clear. There is mild cardiomegaly. Pulmonary vascularity is normal. No gross bony abnormality seen. IMPRESSION: Mild cardiomegaly otherwise no acute cardiopulmonary process seen. DICTATED BY: Eder Awan MD DATE/TIME DICTATED:01/12/181155 OVERLOCK SLEEVE SETTER:MONIQUE DATE/ TIME TRANSCRIBED:01/12/181155 CONFIDENTIAL, DO NOT COPY WITHOUT APPROPRIATE AUTHORIZATION. <Electronically signed in Other Vendor System> SIGNED BY: Eder Awan MD 01/12/18 1200 Initial ED EKG: sinus tachycardia @109bpm, nonspecific ST changes Prior EKG: unchanged (11/27/17) (Denita GARCIA,Patti Swann) Departure Departure Disposition: HOME OR SELF CARE Condition: Stable Clinical Impression Primary Impression: Dyspnea Qualifiers: Dyspnea type: unspecified Qualified Code: R06.00 - Dyspnea, unspecified Secondary Impressions: Oral candidiasis Pharyngitis Qualifiers: Pharyngitis/tonsillitis etiology: unspecified etiology Qualified Code: J02.9 - Acute pharyngitis, unspecified Referrals: Yenifer Richardson APRN (PCP/Family) Additional Instructions: Take amoxicillin as prescribed. Take full steroid pack. Take nystatin swish and swallow as prescribed. Follow up with your primary care doctor. Return if you have worsening symptoms or other concerns. Please note that there might be incidental findings in your evaluation that are unrelated to the current emergency department visit. Please notify your primary care doctor about this emergency department visit in order to obtain and review all of the testing performed so that these incidental findings can be monitored as needed. If you had an x-ray performed, please understand that some fractures may not be seen on the initial set of x-rays. If your symptoms persist you might need a repeat set of x-rays to check for such a fracture. If you had a laceration evaluated, please understand that foreign bodies such as glass or wood may not be visible to the naked eye or on plain x-rays. If the wound becomes red, swollen, increasingly more painful or if there is any drainage from the wound, please have it reevaluated by a physician for the possibility of a retained foreign body. If you're unable to follow up as outlined in the discharge instructions please return to the emergency department. Thank you for choosing the [facility] Emergency Department for your care. It was a pleasure to serve you today. Departure Forms: Customer Survey General Discharge Information Prescriptions: Current Visit Scripts Amoxicillin 1 TAB PO BID #14 TAB Prednisone 1 DOSE PO DAILY #15 TAB take 5 tabs day 1 4 tabs day 2 3 tabs day 3 2 tabs day 4 1 tab day 5 Nystatin 5 ML PO 4 TIMES/DAY #200 ML (Patti Casey) PA/AUTOMOBILE ENGINE ASSEMBLER Co-Sign Statement Statement: ED Attending supervision documentation- [] I saw and evaluated the patient. I have also reviewed all the pertinent lab results and diagnostic results. I agree with the findings and the plan of care as documented in the PA's/AUTOMOBILE ENGINE ASSEMBLER's documentation. [x] I have reviewed the ED Record and agree with the PA's/AUTOMOBILE ENGINE ASSEMBLER's documentation. [] Additions or exceptions (if any) to the PAs/AUTOMOBILE ENGINE ASSEMBLER's note and plan are summarized below: [] (Gareth Martinez DO) Critical Care Note Critical Care Note Critical Care Time: non-applicable (Denita GARCIA,Patti Swann)
[2018-01-12 14:22] VITALS: BP 163/81
[2018-01-12] MEDS ORDERED: AMOXICILLIN875 M1 PO (15:46)
[2018-01-12] MEDS ORDERED: PREDNISONE10 M2 PO (15:46)
[2018-01-12] MEDS ORDERED: NYSTATIN100000 UNI PO (15:46)
== END 2018-01-12 16:10 ==
LOC: ERH 10:59
PROVIDERS: Emergency Medicine
DX: R06.00 Dyspnea, unspecified (principal); B37.0 Candidal stomatitis; J02.9 Acute pharyngitis, unspecified
CPT/HCPCS: 71046; 93005; 93010

== ENCOUNTER 2018-01-23 20:18 | Inpatient (IN) | payer OTHER ==
[~2018-01-23] VITALS: Ht 152.4 cm; Wt 85.0 kg
[~2018-01-23 20:18] MED LIST changes: +AMOXICILLIN875 M1 PO; +LOSARTAN POTASS50 M1 PO; +MELATONIN5 M7; +NYSTATIN100000 UNI PO
[2018-01-23 21:12] LABS: ABSOLUTE BASOPHIL COUNT 0 /CUMM (0.0-0.2); ABSOLUTE EOSINOPHIL COUNT 0 /CUMM (0.0-0.7); ABSOLUTE GRANULOCYTE CT 7.1 /CUMM (1.4-6.5); ABSOLUTE LYMPH COUNT 1.5 /CUMM (1.2-3.4); ABSOLUTE MONOCYTE COUNT 0.9 /CUMM (0.10-0.60); BASOPHIL % 0.5 % (0.0-2.0); EOSINOPHIL % 0.3 % (0-5); GRANULOCYTE % 74.6 % (42.2-75.2); HEMATOCRIT 42.9 % (37-47); MEAN CORPUSCULAR HGB 31.2 PG (27.0-31.0); MEAN CORPUSCULAR HGB CONC 34.2 G/DL (33.0-37.0); MEAN CORPUSCULAR VOLUME 91.2 FL (81.0-99.0); MEAN PLATELET VOLUME 6.2 FL (7.4-10.4); PLATELET COUNT 167 /CUMM (130-400); RBC DISTRIBUTION WIDTH 11.9 % (11.5-14.5); RED BLOOD CELL CT 4.71 /CUMM (4.20-5.40); WHITE BLOOD CELL COUNT 9.5 /CUMM (4.8-10.8)
--- NOTE | 2018-01-23 21:25 | ED DYSPNEA/ASTHMA COMPLAINT ---
History of Present Illness General Chief Complaint: Dyspnea (COPD, CHF, Other) Stated Complaint: BIBA FOR EVAL DIFF BREATHER Source: patient Exam Limitations: no limitations Vital Signs & Intake/Output Vital Signs & Intake/Output Vital Signs Date Time Temp Pulse Resp B/P B/P Pulse O2 O2 Flow FiO2 Mean Ox Delivery Rate 01/24 0006 98.2 107 18 133/76 93 Nasal 5.0L Cannula 01/23 2235 93 Nasal 5.0L Cannula 01/23 2207 98.8 118 22 154/90 94 Nasal 4.0L Cannula 01/23 2135 116 22 132/80 93 Nasal 4.0L Cannula 01/23 2134 98.3 01/23 2122 91 Nasal 5.0L Cannula 01/23 2111 99.8 01/24 2020 99.7 120 24 174/88 93 Nasal 5.0L Cannula ED Intake and Output 01/24 0000 01/23 1200 Intake Total 350 Output Total Balance 350 Intake, IV 350 Patient 204 lb Weight Allergies Coded Allergies: No Known Allergies (09/14/17) Reconcile Medications Albuterol Sulfate 2.5 MG/3 ML (0.083 %) VIAL.NEB 1 Vial INH/GENET PRN RESPIRATORY (Reported) Albuterol Sulfate (Proair Respiclick) 90 MCG AER.POW.BA 2 PUFF INH Q4-6 PRN COPD Amoxicillin 875 MG TABLET 1 TAB PO BID bronchitis Aripiprazole (Abilify) 20 MG TABLET 1 TAB PO QPM MENTAL HEALTH (Reported) Budesonide/Formoterol Fumarate (Symbicort 160-4.5 Mcg Inhaler) 10.2 GM HFA.AER.AD 2 PUF INH BID COPD Gabapentin 300 MG CAPSULE 1 CAP PO TID MENTAL HEALTH (Reported) Hydroxyzine Pamoate (Vistaril) 50 MG CAPSULE 2 CAP PO QPM SLEEP (Reported) Loperamide HCl (Anti-Diarrheal) 2 MG CAPSULE 3 CAP PO DAILY DIARRHEA ( Reported) Losartan Potassium 50 MG TABLET 1 TAB PO DAILY HTN (Reported) Melatonin 5 MG TABLET SLEEP (Reported) Nystatin 100,000 UNIT/ML ORAL.SUSP 5 ML PO 4 TIMES/DAY thrush Oxybutynin Chloride 5 MG TABLET 1 TAB PO TID BLADDER (Reported) Paroxetine HCl 40 MG TABLET 1 TAB PO DAILY MENTAL HEALTH (Reported) Prednisone 10 MG TABLET 1 DOSE PO DAILY bronchitis take 5 tabs day 1 4 tabs day 2 3 tabs day 3 2 tabs day 4 1 tab day 5 Sitagliptin Phosphate (Januvia) 100 MG TABLET 1 TAB PO DAILY DIABETES Tiotropium [place] (Spiriva) 18 MCG CAP.W.DEV 1 CAP INH DAILY RESPIRATORY ( Reported) Triage Note: BIBA , SOB ,COPD INCREASING SOB OVER 2-3 DAYS Triage Nurses Notes Reviewed? yes Onset: Abrupt Duration: day(s): (3), constant, continues in ED, getting worse Timing: recent history Severity: moderate, severe Activities at Onset: none Prior Episodes/Possible Cause: frequent episodes Associated Symptoms: cough LMP (ages 10-50): post menopausal : No HPI: 53-year-old female past medical history of COPD presents for evaluation of cough , shortness of breath and fever. Patient states that she was seen here several weeks ago for similar symptoms. She was told that she should be admitted but declined. She was given antibiotics and steroids and was feeling better until 2 or 3 days ago. She reports cough productive of green sputum. She reports shortness of breath is worse on exertion. She's had increased oxygen demand. Normally she only is on oxygen at night but she's been needing to use more oxygen 24 hours a day. She reports she has had sweats and chills and low-grade temps at home. No hemoptysis no chest pain. She is a former smoker. (Jackson Rivera) Past History Travel History Traveled to [place] past 21 day No Medical History Any Pertinent Medical History? 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 No (Jackson Rivera) Review of Systems Review of Systems Constitutional: Reports: chills, diaphoresis, fever, malaise, weakness. EENTM: Reports: no symptoms. Respiratory: Reports: see HPI, cough, short of breath, sputum production, wheezing. Cardiovascular: Reports: no symptoms. GI: Reports: no symptoms. Genitourinary: Reports: no symptoms. Musculoskeletal: Reports: no symptoms. Skin: Reports: no symptoms. Neurological/Psychological: Reports: no symptoms. Hematologic/Endocrine: Reports: no symptoms. Immunologic/Allergic: Reports: no symptoms. All Other Systems: Reviewed and Negative (Jackson Rivera) Physical Exam Physical Exam General Appearance: well developed/nourished, no apparent distress, alert, awake , obese Head: atraumatic, normal appearance Eyes: Bilateral: normal appearance, PERRL, EOMI. Ears, Nose, Throat: hearing grossly normal Neck: normal inspection, supple, full range of motion Respiratory: chest non-tender, no respiratory distress, decreased breath sounds, rhonchi, wheezing Cardiovascular: regular rate/rhythm, normal peripheral pulses Peripheral Pulses: 2+ radial (R), 2+ radial (L) Gastrointestinal: soft, non-tender Extremities: normal inspection, normal range of motion, no edema Neurologic/Psych: no motor/sensory deficits, awake, alert, oriented x 3, normal mood/affect Skin: intact, normal color, warm/dry Lymphatic: no anterior cervical valentina Core Measures ACS in differential dx? No CVA/TIA Diagnosis No Sepsis Present: No Sepsis Focused Exam Completed? No (Jackson Rivera) Progress Differential Diagnosis: asthma, AMI, bronchitis, costochondritis, CHF, COPD, pulmonary embolism, pneumonia, pneumothorax, unstable angina Plan of Care: Orders Procedure Date/time Status Nothing by Mouth 01/24 B Active US-LIMITED ABDOMEN 01/24 0800 Active Saline Lock 01/24 0026 Active ED Holding Orders 01/24 0026 Active Admit to inpatient 01/24 0026 Active TRC EVALUATION (GEN) 01/23 2321 Active STREP PNEUMO URINARY ANTIGEN 01/23 2321 Active LEGIONELLA URINARY ANTIGEN 01/23 2321 Active LOWER RESPIRATORY CULTURE 01/23 2321 Active Pathway - chart 01/23 232 Active House Staff 01/23 2320 Active Code Status 01/23 2320 Active Patient Data 01/23 2304 Active BLOOD CULTURE 01/23 2230 Active BLOOD CULTURE 01/23 2130 Active Intake & Output 01/23 2112 Active TROPONIN LEVEL 01/23 2027 Complete MAGNESIUM 06/10 2027 Complete D-DIMER 01/23 2027 Complete COMPREHENSIVE METABOLIC PANEL 01/23 2027 Complete CBC WITHOUT DIFFERENTIAL 01/23 2027 Complete B-TYPE NATRIURETIC PEP (BNP) 01/23 2027 Complete EKG 01/23 2027 Active VTE Mechanical Prophylaxis 01/23 UNK Active FingerStick- Glucose 01/23 UNK Active Current Medications Sig/Ida Start time Last Medication Dose Stop Time Status Admin Aripiprazole 20 MG AT BEDTIME 01/24 2100 UNVr (Abilify) Melatonin 5 MG AT BEDTIME 01/24 2100 UNVr (Melatonin) Enoxaparin Sodium 40 MG DAILY 01/24 900 UNVr (Lovenox) Gabapentin 300 MG TID 01/24 900 UNVr (Neurontin) Loperamide HCl 6 MG DAILY 01/24 900 UNVr (Imodium) Losartan Potassium 50 MG DAILY 01/24 900 UNVr (Cozaar) Nystatin 5 ML 4 TIMES/DAY 01/24 900 UNVr (Mycostatin Susp) Oxybutynin Chloride 5 MG TID 01/24 900 UNVr (Ditropan 2.5MG Tab(1/2 of a 5mg tab)) Paroxetine HCl 40 MG DAILY 01/24 900 UNVr (Paxil) Insulin Human Regular 0 Q6 01/24 50 UNVr (NovoLIN R) Ipratropium [place] 2.5 ML ONCE ONE 01/23 2230 CAN (Atrovent) 01/23 2231 Laboratory Tests 01/23/18 2100: Anion Gap 14, Estimated GFR > 60, BUN/Creatinine Ratio 14.0, Glucose 313 H, Calcium 8.7, Magnesium 1.8, Total Bilirubin 0.6, AST 148 H, ALT 106 H, Alkaline Phosphatase 114, Troponin I < 0.01, Usc-O-Diasebwuxrd Pept 70.9, Total Protein 6.7, Albumin 3.8, Globulin 2.9, Albumin/Globulin Ratio 1.3, D-Dimer High Sensitivty 243, CBC w Diff NO MAN DIFF REQ, RBC 4.71, MCV 91.2, MCH 31.2 H, MCHC 34.2, RDW 11.9, MPV 6.2 L, Gran % 74.6, Lymphocytes % 15.6 L, Monocytes % 9.0, Eosinophils % 0.3, Basophils % 0.5, Absolute Granulocytes 7.1 H, Absolute Lymphocytes 1.5, Absolute Monocytes 0.9 H, Absolute Eosinophils 0, Absolute Basophils 0 Microbiology 01/23 232 URINE ROUT: Legionella Antigen - ORD 01/23 2321 URINE ROUT: Streptococcus pneumoniae Antigen (M - ORD 01/23 232 LOWER RESP: Respiratory Culture - ORD 01/23 232 LOWER RESP: Gram Stain - ORD 01/23 222 BLOOD: Blood Culture - RECD 01/23 190 BLOOD: Blood Culture - RECD Patient seen and evaluated. She is here with cough shortness of breath and fever. She has a history of COPD. On initial evaluation she has a low-grade temperature and oxygen saturation 92% on 5 L oxygen. She usually only requires 3 L at night but has been using her oxygen 24 hours a day 5 L. She has diminished breath sounds bilaterally. She has increased work of breathing. When patient's oxygen is titrated down she desaturates to the 80s. She will require admission. Chest x-ray and labs EKG ordered. Patient medicated with DuoNeb and Solu-Medrol. Zithromax and ceftriaxone also ordered. Blood work shows slight decreased sodium and chloride but otherwise within normal limits. No white count negative d-dimer. Negative troponin and EKG stable. Chest x-ray is clear. Patient is still having diminished breath sounds and hypoxia. She will require admission for COPD. case discussed with Dr. Benítez he agrees. She'll require IV antibiotics IV steroids serial labs pulmonology consult oxygen and medication ADJUSTMENT Diagnostic Imaging: Viewed by Me: Radiology Read. Discussed w/RAD: Radiology Read. Radiology Impression: PATIENT: CHRISTI ASCENCIO PRESENT AGE: 53 PATIENT ACCOUNT NO: [id number] : 63 LOCATION: [facility] ORDERING PHYSICIAN: Jackson GARCIA SERVICE DATE: 01/23/18 EXAM TYPE: RAD - XRY- PORTABLE CHEST XRAY EXAMINATION: XR PORTABLE CHEST CLINICAL INFORMATION: Shortness of breath. COMPARISON: Chest x-ray 01/12/2018, 05/14/2017. TECHNIQUE: Portable frontal view of the chest was obtained. FINDINGS: Minimal hazy opacity of both lung bases likely represents superimposed breast tissue. No focal consolidation. No pleural effusion. Cardiomediastinal silhouette and pulmonary vasculature are normal. No acute osseous finding. IMPRESSION: No acute cardiopulmonary disease. DICTATED BY: Abdon Ravi MD DATE/TIME DICTATED:06/02 GLOBAL MARKETING COORDINATOR:MONIQUE DATE/TIME TRANSCRIBED:01/23/182200 CONFIDENTIAL, DO NOT COPY WITHOUT APPROPRIATE AUTHORIZATION. <Electronically signed in Other Vendor System> SIGNED BY: Abdon Ravi MD 01/23/182205 Initial ED EKG: normal sinus rhythm, LEFT ATRIAL ABNORMALITY NONSPECIFIC t-WAVE ABNORMALITIES ANTERIOR LEADS (Jackson Rivera) Departure Departure Disposition: STILL A PATIENT Condition: Stable Clinical Impression Primary Impression: COPD exacerbation Referrals: Yenifer Richardson APRN (PCP/Family) Departure Forms: Customer Survey General Discharge Information Admission Note Spoke With: Carlos GILLIS,Abdi Documentation of Exam: Documentation of any treatments & extenuating circumstances including Concerns Regarding Discharge (functional status, medication knowledge or non-compliance, living conditions, etc.) that warrant an admission rather than observation: [Duo nebs, pulmonology, IV antibiotics, IV steroids, oxygen supplementation, medication adjustment] (Jackson Rivera) PA/PATIENT REPRESENTATIVE Co-Sign Statement Statement: ED Attending supervision documentation- [X] I saw and evaluated the patient. I have also reviewed all the pertinent lab results and diagnostic results. I agree with the findings and the plan of care as documented in the PA's/PATIENT REPRESENTATIVE's documentation. 01/24/18, 0:15AM... pt resting comfortably, increased 02 requirement, pickwickian type presentation, merits, steroids, 02 support, abx. [] I have reviewed the ED Record and agree with the PA's/PATIENT REPRESENTATIVE's documentation. [] Additions or exceptions (if any) to the PAs/PATIENT REPRESENTATIVE's note and plan are summarized below: [] (Jeyson GILLIS,Tre Chandler) Critical Care Note Critical Care Note Critical Care Time: 75-104 min (Jackson Rivera)
--- NOTE | 2018-01-23 22:06 | RADIOLOGY REPORT ---
EXAMINATION: XR PORTABLE CHEST CLINICAL INFORMATION: Shortness of breath. COMPARISON: Chest x-ray 01/12/2018, 05/14/2017. TECHNIQUE: Portable frontal view of the chest was obtained. FINDINGS: Minimal hazy opacity of both lung bases likely represents superimposed breast tissue. No focal consolidation. No pleural effusion. Cardiomediastinal silhouette and pulmonary vasculature are normal. No acute osseous finding. IMPRESSION: No acute cardiopulmonary disease.
--- NOTE | 2018-01-23 23:09 | History & Physical ---
Barbara GILLIS,Lisandro 01/23/18 4955: General Information and HPI MD Statement: I have seen and personally examined CHRISTI ASCENCIO and documented this H&P. The patient is a 53 year old F who presented with a patient stated chief complaint of [COPD exacerbation]. Source of Information: patient, old records Exam Limitations: no limitations History of Present Illness: Patient is a 53-year-old female with a PMH significant for COPD on nocturnal supplemental O2 3 L, and 5 L when ambulating, bipolar disorder, overactive bladder, HTN, who was brought into the [facility] ED by ambulance complaining of worsening dyspnea, productive cough with greenish sputum. Patient presented to [facility] ED on 01/12/18 with similar complaints, but refused to be admitted. She was sent home on a prednisone taper and amoxacillin. She reports that her symptoms initially improved until 3 days prior to presentation when she dyspnea on exertion that progressed to dyspnea at rest. She also developed a productive cough with greenish sputum during this time. She endorses subjective fevers but did not take her temperature. She has had increased wheezing and is to use her albuterol inhaler had any increased frequency. In the ED patient reported mild episode of nausea with no vomiting. Patient endorses increased wheezing as well over the last several days. Patient denies any chest pain, palpitations, lightheadedness, dizziness, syncope , leg swelling, edema, paroxysmal nocturnal dyspnea. Of note patient reports drinking at least 2 beers per day, with his last drink the day of presentation. Over the last 2 weekends she endorses binge drinking to celebrate her recent birthday. She has never had alcohol withdrawal symptoms. Allergies/Medications Allergies: Coded Allergies: No Known Allergies (09/14/17) Home Med list Albuterol Sulfate 2.5 MG/3 ML (0.083 %) VIAL.NEB 1 Vial INH/GENET PRN RESPIRATORY (Reported) Albuterol Sulfate (Proair Respiclick) 90 MCG AER.POW.BA 2 PUFF INH Q4-6 PRN COPD Aripiprazole (Abilify) 20 MG TABLET 1 TAB PO QPM MENTAL HEALTH (Reported) Budesonide/Formoterol Fumarate (Symbicort 160-4.5 Mcg Inhaler) 10.2 GM HFA.AER.AD 2 PUF INH BID COPD Gabapentin 300 MG CAPSULE 1 CAP PO TID MENTAL HEALTH (Reported) Hydroxyzine Pamoate (Vistaril) 50 MG CAPSULE 2 CAP PO QPM SLEEP (Reported) Loperamide HCl (Anti-Diarrheal) 2 MG CAPSULE 3 CAP PO DAILY DIARRHEA ( Reported) Losartan Potassium 50 MG TABLET 1 TAB PO DAILY HTN (Reported) Melatonin 5 MG TABLET SLEEP (Reported) Nystatin 100,000 UNIT/ML ORAL.SUSP 5 ML PO 4 TIMES/DAY thrush Oxybutynin Chloride 5 MG TABLET 1 TAB PO TID BLADDER (Reported) Paroxetine HCl 40 MG TABLET 1 TAB PO DAILY MENTAL HEALTH (Reported) Sitagliptin Phosphate (Januvia) 100 MG TABLET 1 TAB PO DAILY DIABETES Tiotropium Sciota (Spiriva) 18 MCG CAP.W.DEV 1 CAP INH DAILY RESPIRATORY ( Reported) Past History Travel History Traveled to [place] past 21 day No Medical History Neurological: NONE EENT: NONE Cardiovascular: NONE Respiratory: COPD, 02 DEPENDANT PRN Gastrointestinal: CHRONIC DIARRHEA Hepatic: NONE Renal: OVERACTIVE BLADDER Musculoskeletal: NONE Psychiatric: bipolar disease Endocrine: diabetes Cancer(s): NONE 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 FH: breast cancer, Onset: 50-60. FH: myocardial infarction, Onset: 40-50. Relation not specified for: *No pertinent family history Psychosocial History Where do you live? Home Who Do You Live With? boyfriend Services at Home: Oxygen Primary Language: French Smoking Status: Former Smoker (80 pack years, quit in 04/2017) ETOH Use: denies use Illicit Drug Use: denies illicit drug use Functional Ability ADLs Independent: dressing, eating, toileting, bathing. Ambulation: independent IADLs Independent: shopping, housework, finances, food prep, telephone, transportation , medication admin. Review of Systems Review of Systems Constitutional: Reports: fever. Denies: chills, malaise, weakness. EENTM: Denies: blurred vision, double vision, visual changes. Cardiovascular: Denies: chest pain, edema, orthopena, syncope. Respiratory: Reports: cough, short of breath, sputum production, wheezing. Denies: hemoptysis, orthopnea. GI: Reports: diarrhea (chronic), nausea. Denies: abdominal pain, bloating, constipation, bloody stool, changes in stool, vomiting. Genitourinary: Denies: discharge, dysuria, frequency. Musculoskeletal: Reports: no symptoms. Skin: Reports: see HPI. Neurological/Psychological: Reports: no symptoms. Exam & Diagnostic Data Last 24 Hrs of Vital Signs/I&O Vital Signs Date Time Temp Pulse Resp B/P B/P Pulse O2 O2 Flow FiO2 Mean Ox Delivery Rate 01/24 0006 98.2 107 18 133/76 93 Nasal 5.0L Cannula 01/235 93 Nasal 5.0L Cannula 01/23 2207 98.8 118 22 154/90 94 Nasal 4.0L Cannula 01/23 2135 116 22 132/80 93 Nasal 4.0L Cannula 01/23 2134 98.3 01/23 2122 91 Nasal 5.0L Cannula 01/23 2111 99.8 01/24 2020 99.7 120 24 174/88 93 Nasal 5.0L Cannula Intake & Output 01/24 0800 01/24 0000 01/23 1600 Intake Total 350 Output Total Balance 350 Intake, IV 350 Patient 204 lb Weight Physical Exam General Appearance Alert, Oriented X3, Cooperative, Mild Distress (respiratory) Skin Temp/Moisture Exam: Warm/Dry Sepsis Skin Exam (color): Normal for Ethnicity HEENT Atraumatic, PERRLA, EOMI, Mucous Membr. moist/pink, white plaques on tongue and soft palate Cardiovascular Normal S1, Normal S2, tachycardic HR 100s Lungs diffufsely diminished breath sounds , no accessory muscle use, no tripoding Abdomen murphys sign positive, abdominal distension Neurological Normal Speech, Strength at 5/5 X4 Ext, Normal Tone, Sensation Intact, Cranial Nerves 3-12 NL Extremities No Clubbing, No Cyanosis, No Edema Last 24 Hrs of Labs/Ryne: Laboratory Tests 01/23/18 2100: Anion Gap 14, Estimated GFR > 60, BUN/Creatinine Ratio 14.0, Glucose 313 H, Calcium 8.7, Magnesium 1.8, Total Bilirubin 0.6, AST 148 H, ALT 106 H, Alkaline Phosphatase 114, Troponin I < 0.01, Avl-H-Oedftplrkie Pept 70.9, Total Protein 6.7, Albumin 3.8, Globulin 2.9, Albumin/Globulin Ratio 1.3, D-Dimer High Sensitivty 243, CBC w Diff NO MAN DIFF REQ, RBC 4.71, MCV 91.2, MCH 31.2 H, MCHC 34.2, RDW 11.9, MPV 6.2 L, Gran % 74.6, Lymphocytes % 15.6 L, Monocytes % 9.0, Eosinophils % 0.3, Basophils % 0.5, Absolute Granulocytes 7.1 H, Absolute Lymphocytes 1.5, Absolute Monocytes 0.9 H, Absolute Eosinophils 0, Absolute Basophils 0 Microbiology 01/23 2321 URINE ROUT: Legionella Antigen - ORD 01/23 2321 URINE ROUT: Streptococcus pneumoniae Antigen (M - ORD 01/23 2321 LOWER RESP: Respiratory Culture - ORD 01/23 2321 LOWER RESP: Gram Stain - ORD 01/24 2220 BLOOD: Blood Culture - RECD 01/23 1900 BLOOD: Blood Culture - RECD Diagnostic Data EKG Results sinus tachycardia HR 117, QTc 485 CXR Results Minimal hazy opacity of both lung bases likely represents superimposed breast tissue. No focal consolidation. No pleural effusion. Cardiomediastinal silhouette and pulmonary vasculature are normal. No acute osseous finding. IMPRESSION: No acute cardiopulmonary disease. Assessment/Plan Assessment: Patient is a 53-year-old female with a PMH significant for COPD on nocturnal supplemental O2 3 L, and 5 L when ambulating, bipolar disorder, overactive bladder, HTN, who was brought into the [facility] ED by ambulance complaining of worsening dyspnea, productive cough with greenish sputum. Patient presented to [facility] ED on 01/12/18 with similar complaints, but refused to be admitted. Patient has diminished breath sounds diffusely, Braxton sign positive, mild respiratory distress. Vital signs on presentation: T 99.7, P1 20, RR 24, BP 174/88, pulse ox 92% on 5 L O2 nasal cannula Labs: WBC 9.5, H/H 14.7/42.9, platelets 167, sodium 130, potassium 4.3, chloride 89, CO2 26, BUN 7, creatinine 0.5, glucose 313, AST 148, ALT 106, d-dimer 243 CXR with no signs of acute pathology Problem list #COPD exacerbation #Transaminitis with Braxton sign positive, patient endorses daily drinking of 2 beers and recent episodes of binge drinking #Type 2 diabetes, uncontrolled #mild hyponatremia Plan -Admit to general medicine -TRC/nebs, with scheduled nebs every 4 hours -Patient received 125 mg IV Solu-Medrol, will continue with with 60 mg IV Solu- Medrol every 6 hours -Patient is to follow-up with Dr. Bergeron for Pulmonology, has not seen him for 3 years, and wishes to reestablish care, will consult Dr. Bergeron -IV azithromycin -patient received Rocephin in ED, will not continue -Right upper quadrant ultrasound -Trend LFTs -Sputum culture -Continue home medications, will hold oral diabetic medication in favor of insulin sliding scale -CIWA protocol Diet: N.p.o. pending right upper quadrant ultrasound, then diabetic diet DVT prophylaxis: Lovenox, Alps CODE STATUS: Full code As Ranked By This Provider Problem List: 1. COPD exacerbation 2. Transaminitis 3. Oral candidiasis Core Measures/Misc (05/02) Acute Coronary Syndrome ACS Diagnosis: No Congestive Heart Failure Congestive Heart Failure Diagnosis No Cerebrovascular Accident CVA/TIA Diagnosis: No VTE (View Protocol) VTE Risk Factors Age>40 No Mechanical VTE Prophylaxis d/t N/A MechProphylax Ordered No VTE Pharm Prophylaxis d/t NA PharmProphylax ordered Sepsis (View protocol) Sepsis Present: No If YES complete Sepsis Event Note If YES complete Sepsis Event Note [facility] 0205: Core Measures/Misc (05/02) Sepsis (View protocol) If YES complete Sepsis Event Note If YES complete Sepsis Event Note Resident Review Statement Resident Statement: examined this patient, discussed with news internship, agreed with news internship, reviewed EMR data (avail) Other Findings: 53/F with a PMH of COPD on oxygen as 3 L nocturnal and 5 L on ambulating, bipolar, HTN, who resented with dyspnea cough productive of greenish sputum and subjective fever. The pt was seen 10 days ago in ED but refused to be admitted. She was sent home on a prednisone taper and Amoxacillin. Initially her symptom improved until 3 days ago when her symptoms occurred. Her symptoms became associated with wheezing for which she starting using rescue inhaler more frequent but without relief. She also endorsed nausea but denies vomiting, abdominal pain, diarrhea or constipation. She denies any chest pain, palpitations, lightheadedness, dizziness, syncope, leg swelling, edema, PND. She reports binge drinking during the past week with her last drink being earlier today. She denies any history of alcohol withdrawal. Physical exam was significant for decreased air entry bilaterally, RUQ tenderness and positive Braxton's sign. The rest of physical exam was insignificant. Please refer to news internship note for full physical. Labs were significant for Na 130 (chronic), glucose 313, AST 148 and ALT 106. The rest was insignificant. Assessment: Patient presented with shortness breath and wheezing, improved after IV steroid in the ED. She most likely has a COPD exacerbation secondary to bronchitis. No signs of pnumonia on CXR. We will medicate with steroid and ABx. The pt has transaminitis that most likely secondary to recent excessive alcohol use, however given right upper quadrant tenderness and abdominal distention we will order abdominal ultrasound and trend liver function. Plan * Admit to general medicine floor * Start IV Solu-Medrol 60 mg every 6 * Continue azithromycin 500 mg daily * TRC/nebs [id number] * Oxygen supplement as necessary * Sputum culture * Urine Legionella and strep * Fingerstick and insulin SS * Nothing by mouth for abdominal ultrasound in the morning * Full code * DVT prophylaxis with subcutaneous Lovenox * Continue the rest of home medication Carlos GILLIS, [facility] 01/24/18 0256: Core Measures/Misc (05/02) Sepsis (View protocol) If YES complete Sepsis Event Note If YES complete Sepsis Event Note Attending MD Review Statement Attending Statement Attending MD Statement: examined this patient, discuss w/resident/PA/DIRECTOR OF [employer]ORY [employer]PER[employer], agreed w/resident/PA/DIRECTOR OF LABORATORY OPERATIONS, reviewed images, amended to note Attending Assessment/Plan: 53 yo morbidly obese F with h/o COPD on nocturnal 3L O2 and 5L at daytime, ex- smoker quit 9 months ago, T2DM, bipolar disorder, HTN, who was seen in the ER on January 12 for bronchitis, was advised admission but refused and was discharged on prednisone taper and amoxicillin. She returns today for worsening dyspnea, wheezing, cough productive of greenish phlegm and subjective fevers over the past 3 days. She has tried using her inhalers without relief and had to increase her oxygen to 5 L all through the day. Of note, she drinks 2 beers everyday and reports binging over the past weekend. No h/o withdrawal seizures or DT's. Vitals: Tmax 99.8, HR 100-120's, BP 138/84, sats 91% on 5L. Exam as above. Labs: no leukocytosis, D-dimer low, Na 130, glucose 313, T. Bili 0.6, AST 148, ALT 106 , trop neg. CXR: minimal hazy opacity of both lung bases likely represents superimposed breast tissue, no focal consolidation. EKG: sinus tachycardia, no acute changes, QTC 485. PFT (2011): mild obstructive lung disease with airtrapping and hyperinflation. Assessment and plan: 1. Acute on chronic hypoxic respiratory failure 2. Acute bronchitis with COPD exacerbation 3. Oral thrush/ candidiasis 4. Chronic hyponatremia 5. Transaminitis 2/2 alcohol use, rule out primary biliary pathology 6. T2 DM - Admit to General medicine - Obtain sputum culture - Scheduled and PRN albuterol with ipratropium nebs - IV solumedrol 40 Q6 - PO azithro for 5 days - Pullm consult (Dr. Nielsen) - O2 supplementation to keep sats > 92% - Nystatin swish and swallow - RUQ ultrasound in AM - Gentle hydration and trend LFTs in AM - Check alcohol level - Check urinalysis and urine drug screen - [facility] protocol, watch for withdrawal - Serial abdomen exam DVT ppx Lovenox. Full code. - Serial abdomen exam DVT ppx Lovenox. Full code.
[2018-01-24 01:40] VITALS: BP 138/84
--- NOTE | 2018-01-24 02:10 | Admission Certification ---
Admission Certification Certification Statement - As attending physician, I certify that at the time of - admission, based on clinical presentation, severity of - symptoms, need for further diagnostic testing and - therapeutic interventions, and risk of adverse outcomes - without in-hospital treatment, in my clinical assessment, - this patient requires an acute hospital stay for a minimum - of two nights or longer. I have also considered psychsocial - factors such as support system, advanced age, financial - issues, cognitive issues, and failed out-patient treatments, - past re-admission history, safety of patient, and lack of - compliance as applicable. Specific rationale supporting this admission is: Acute on chronic hypoxic respiratory failure, COPD exacerbation.
[2018-01-24 06:00] VITALS: BP 138/80; BP 94/62
--- NOTE | 2018-01-24 07:49 | PN- Housestaff ---
Edith GILLIS,Cuong 01/24/18 0749: Subjective Follow-up For: COPD Exacerbation Elevated Transaminases Subjective: Patient was seen and examined todya. Patient reports continued shortness of breath however states it has mildly improved. Patient denies fever/chills, nausea/vomitting, abdominal pain, chest pain, palpitatiions. Review of Systems Constitutional: Reports: see HPI. Objective Last 24 Hrs of Vital Signs/I&O Vital Signs Date Time Temp Pulse Resp B/P B/P Pulse O2 O2 Flow FiO2 Mean Ox Delivery Rate 01/24 1622 92 Nasal 4.0L Cannula 01/24 1409 97.6 107 20 140/85 93 01/24 1348 95 Nasal 5.0L Cannula 01/24 0840 93 Nasal 5.0L Cannula 01/24 0830 Nasal 5.0L Cannula 01/24 0814 89 130/90 01/24 0800 89 130/90 01/24 0800 94 Nasal 5.0L Cannula 01/24 0600 98.2 100 24 138/80 93 Nasal 5.0L Cannula 01/24 0156 Nasal 5.0L Cannula 01/24 0140 98.3 108 24 138/84 93 Nasal 5.0L Cannula 01/24 0006 98.2 107 18 133/76 93 Nasal 5.0L Cannula 01/23 2235 93 Nasal 5.0L Cannula 01/23 2207 98.8 118 22 154/90 94 Nasal 4.0L Cannula 01/23 2135 116 22 132/80 93 Nasal 4.0L Cannula 01/23 2134 98.3 01/23 2122 91 Nasal 5.0L Cannula 01/23 2111 99.8 01/24 2020 99.7 120 24 174/88 93 Nasal 5.0L Cannula Intake & Output 01/24 1600 01/24 0800 01/24 0000 Intake Total 480 20 350 Output Total 1000 Balance 480 -980 350 Intake, IV 20 350 Intake, Oral 480 Output, Urine 1000 Patient 188 lb 204 lb Weight Weight Reported by Patient Measurement Method Physical Exam General Appearance: Alert, Cooperative, No Acute Distress HEENT: Atraumatic, Mucous Membr. moist/pink Cardiovascular: Regular Rate, Normal S1, Normal S2 Lungs: decreased air entry bilaterally, no wheezing Abdomen: Normal Bowel Sounds, Soft, No Tenderness Neurological: Normal Speech, Cranial Nerves 3-12 NL Extremities: No Clubbing, No Cyanosis, No Edema, Normal Pulses, No Tenderness/ Swelling Vascular: Normal Pulses, Pulses Symmetrical Assessment/Plan Assessment: Patient is a 53-year-old female with a PMH significant for COPD on nocturnal supplemental O2 3 L, and 5 L when ambulating, bipolar disorder, overactive bladder, HTN, who was brought into the [facility] ED by ambulance complaining of worsening dyspnea, productive cough with greenish sputum. Patient presented to [facility] ED on 01/12/18 with similar complaints, but refused to be admitted. Patient has diminished breath sounds diffusely, Braxton sign positive, mild respiratory distress. Vital signs on presentation: T 99.7, P1 20, RR 24, BP 174/88, pulse ox 92% on 5 L O2 nasal cannula Labs: WBC 9.5, H/H 14.7/42.9, platelets 167, sodium 130, potassium 4.3, chloride 89, CO2 26, BUN 7, creatinine 0.5, glucose 313, AST 148, ALT 106, d-dimer 243 CXR with no signs of acute pathology Problem list 1. COPD exacerbation Patient continues to require 5L NC. Patient appears restless after signifcant steroid use and respiratory treatments. * will decrease from 40mg q6h to 40mg q8h IV Solumedrol * continue IV Azithromycin * continue oxygen supplementation and wean down as tolerated to keep oxygen >92% * continue TRC/DuoNeb * send sputum culture * pulmonology consulted 2. Transaminitis with Braxton sign positive, patient endorses daily drinking of 2 beers and recent episodes of binge drinking Ultrasound of liver today is unremarkable. Patient clinically without abdominal pain. * Repeat LFTs in AM 3. Type 2 diabetes, uncontrolled Blood sugars elevated likely secondary to significant steroid use for COPD exacerbation. * continue novolog SS * continue accuchecks TIDAC/qHS 4. 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 COPD exacerbation 2. Transaminitis Pain Ratin Pain Location: n/a Pain Goal: Remain pain free Pain Plan: per pain pathway Tomorrow's Labs & Rationales: lfts bep - hyponatremia [place] GILLIS,[place] 01/24/18 1108: Attending MD Review Statement Attending Statement Attending MD Statement: examined this patient, discuss w/resident/PA/[employer], agreed w/resident/PA/[employer], reviewed EMR data (avail), discussed with nursing, discussed with case mgmt, amended to note Attending Assessment/Plan: Patient seen and examined. Sitting up appears mildly short of breath. Maintaining saturation on oxygen supplementation. Patient reports that on baseline with ambulation she requires 5 L of oxygen during activity. She however states that at rest at home she does not utilize oxygen supplementation. She states she has been without her oxygen is within normal limits. On examination she has very poor entry bilaterally with no significant added sounds. Abdomen soft and nontender. She has no peripheral edema. We will continue bronchodilator therapy in the hospital. Continue systemic steroid therapy with Solu-Medrol. Continue oxygen supplementation. Based on the clinical course we will taper down steroid therapy and wean oxygen supplementation as tolerated. Blood glucose levels are elevated likely secondary to steroid therapy. Monitor patient closely on a sliding scale coverage. She is noted to be hyponatremic this is chronic for the patient. Likely related to SIADH. She does have a history of a pulmonary nodule that needs to be worked up further. This patient on a fluid restriction of 1 L. Pulmonology referral as an outpatient for follow-up of her pulmonary nodule.
[2018-01-24 08:00] VITALS: BP 130/90
--- NOTE | 2018-01-24 08:21 | Cons- Pulmonary ---
General Information and HPI Consulting Request Date of Consult: 01/24/18 Requested By: Julianna Reason for Consult: Shortness of breath History of Present Illness: Patient is 53-year-old woman with long-time smoker significant COPD on chronic oxygen for chronic hypoxic respiratory failure admitted with increased shortness of breath and found to have abnormal liver function tests in the setting of alcohol consumption. Having discontinued smoking in April. Her baseline oxygen flow rate is 3 L. She had a productive cough of discolored sputum which is now improved. Denies chest pain or lower extremity edema. sHe has had increasing abdominal girth. Allergies/Medications Allergies: Coded Allergies: No Known Allergies (09/14/17) Home Med List: Albuterol Sulfate 2.5 MG/3 ML (0.083 %) VIAL.NEB 1 Vial INH/GENET PRN RESPIRATORY (Reported) Albuterol Sulfate (Proair Respiclick) 90 MCG AER.POW.BA 2 PUFF INH Q4-6 PRN COPD Aripiprazole (Abilify) 20 MG TABLET 1 TAB PO QPM MENTAL HEALTH (Reported) Budesonide/Formoterol Fumarate (Symbicort 160-4.5 Mcg Inhaler) 10.2 GM HFA.AER.AD 2 PUF INH BID COPD Gabapentin 300 MG CAPSULE 1 CAP PO TID MENTAL HEALTH (Reported) Hydroxyzine Pamoate (Vistaril) 50 MG CAPSULE 2 CAP PO QPM SLEEP (Reported) Loperamide HCl (Anti-Diarrheal) 2 MG CAPSULE 3 CAP PO DAILY DIARRHEA ( Reported) Losartan Potassium 50 MG TABLET 1 TAB PO DAILY HTN (Reported) Melatonin 5 MG TABLET SLEEP (Reported) Nystatin 100,000 UNIT/ML ORAL.SUSP 5 ML PO 4 TIMES/DAY thrush Oxybutynin Chloride 5 MG TABLET 1 TAB PO TID BLADDER (Reported) Paroxetine HCl 40 MG TABLET 1 TAB PO DAILY MENTAL HEALTH (Reported) Sitagliptin Phosphate (Januvia) 100 MG TABLET 1 TAB PO DAILY DIABETES Tiotropium [place] (Spiriva) 18 MCG CAP.W.DEV 1 CAP INH DAILY RESPIRATORY ( Reported) Review of Systems Review of Systems Constitutional: Denies: chills, fever. Cardiovascular: Denies: chest pain, edema. Respiratory: Reports: cough, short of breath, sputum production. Denies: hemoptysis. GI: Reports: bloating. Denies: abdominal pain, diarrhea, melena. 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 FH: breast cancer, Onset: 50-60. FH: myocardial infarction, Onset: 40-50. Relation not specified for: *No pertinent family history Psychosocial History Where Do You Live? Home Who Do You Live With? boyfriend Services at Home: Oxygen Primary Language: Romanian Smoking Status: Former Smoker (80 pack years, quit in 04/2017) ETOH Use: denies use Illicit Drug Use: denies illicit drug use Functional Ability ADLs Independent: dressing, eating, toileting, bathing. Ambulation: independent IADLs Independent: shopping, housework, finances, food prep, telephone, transportation , medication admin. Exam & Diagnostic Data Last 24 Hrs of Vital Signs/I&O Vital Signs Date Time Temp Pulse Resp B/P B/P Pulse O2 O2 Flow FiO2 Mean Ox Delivery Rate 01/24 06 98.2 100 24 138/80 93 Nasal 5.0L Cannula 01/24 0156 Nasal 5.0L Cannula 01/24 0140 98.3 108 24 138/84 93 Nasal 5.0L Cannula 01/24 0006 98.2 107 18 133/76 93 Nasal 5.0L Cannula 01/23 2235 93 Nasal 5.0L Cannula 01/23 2207 98.8 118 22 154/90 94 Nasal 4.0L Cannula 01/23 2135 116 22 132/80 93 Nasal 4.0L Cannula 01/23 2134 98.3 01/23 2122 91 Nasal 5.0L Cannula 01/23 2111 99.8 01/24 2020 99.7 120 24 174/88 93 Nasal 5.0L Cannula Intake & Output 01/24 1600 01/24 0800 01/24 0000 Intake Total 20 350 Output Total 1000 Balance -980 350 Intake, IV 20 350 Output, Urine 1000 Patient 188 lb 204 lb Weight Weight Reported by Patient Measurement Method Oxygen saturation 5 L 93% HEENT exam shows no adenopathy exam for chest shows diminished breath sounds are no wheezes cardiac exam shows regular S1 and S2 abdomen is distended tympanitic with reduced bowel sounds extremities without edema Last 48 Hrs of Labs/Ryne: Laboratory Tests 01/24/18129: Urine Opiates Screen < 100, Methadone Screen 48, Barbiturate Screen < 60, Ur Phencyclidine Scrn < 6.00, Amphetamines Screen < 100, U Benzodiazepines Scrn < 85, Urine Cocaine Screen < 50, Urine Cannabis Screen < 5.00, Urinalysis LIGHT H , Urine Color YEL, Urine Clarity HAZY H, Urine pH 6.0, Ur Specific Emmett 1.010, Urine Protein 30 H, Urine Ketones 15 H, Urine Nitrite NEG, Urine Bilirubin NEG, Urine Urobilinogen 0.2, Ur Leukocyte Esterase TRACE H, Ur Microscopic SEDIMENT EXAMINED, Urine RBC 5-10 H, Urine WBC 5-10 H, Ur Epithelial Cells MOD H, Urine Bacteria FEW H, Urine Mucus FEW, Urine Hemoglobin SMALL H, Urine Glucose >=1000 H 01/23/18 2100: Anion Gap 14, Estimated GFR > 60, BUN/Creatinine Ratio 14.0, Glucose 313 H, Calcium 8.7, Magnesium 1.8, Total Bilirubin 0.6, AST 148 H, ALT 106 H, Alkaline Phosphatase 114, Troponin I < 0.01, Png-Q-Przrwayxlcp Pept 70.9, Total Protein 6.7, Albumin 3.8, Globulin 2.9, Albumin/Globulin Ratio 1.3, D-Dimer High Sensitivty 243, CBC w Diff NO MAN DIFF REQ, RBC 4.71, MCV 91.2, MCH 31.2 H, MCHC 34.2, RDW 11.9, MPV 6.2 L, Gran % 74.6, Lymphocytes % 15.6 L, Monocytes % 9.0, Eosinophils % 0.3, Basophils % 0.5, Absolute Granulocytes 7.1 H, Absolute Lymphocytes 1.5, Absolute Monocytes 0.9 H, Absolute Eosinophils 0, Absolute Basophils 0, Serum Alcohol 23.0 Microbiology 01/24 130 URINE ROUT: Legionella Antigen - COMP 01/24 130 URINE ROUT: Streptococcus pneumoniae Antigen (M - COMP Assessment/Plan Impression/Plan: 53-year-old with severe COPD chronic hypoxic respiratory failure admitted with increasing shortness of breath with acute on chronic hypoxic respiratory failure. Etiology of abnormal LFTs is being evaluated by abdominal ultrasound. Recommendations: Continue IV steroids Zithromax. Taper FiO2 his saturations allow. Obtain cardiac ultrasound to evaluate for pulmonary hypertension. Assess sputum C&S. Continue baseline bronchodilator regimen Consult Acknowledgment - Thank you for your consult request.
--- NOTE | 2018-01-24 10:38 | ULTRASOUND REPORT ---
EXAMINATION: US ABDOMEN LIMITED CLINICAL INFORMATION: Braxton's sign positive, mild transaminitis. Assess for hepatitis versus gallbladder pathology.. COMPARISON: CT scan of the abdomen and pelvis 10/19/2006. TECHNIQUE: Real-time imaging of the right upper quadrant abdominal viscera. FINDINGS: PANCREAS: The visualized pancreatic head and body are normal in appearance. The remainder of the pancreas is obscured from visualization by the overlying bowel gas. LIVER: The liver has diffusely increased echogenicity consistent with hepatic steatosis. It is normal in size and contour. There are no focal lesions and there is no intrahepatic biliary duct dilatation. GALLBLADDER: The gallbladder is moderately well-distended. It has multiple tiny mobile echogenic gallstones and sludge. There is likely a small polyp along the anterior wall. There is trace pericholecystic fluid. The gallbladder wall is normal in thickness, measuring 0.2 cm. The patient was tender in the right upper quadrant. COMMON BILE DUCT: The CBD is mildly prominent measuring 0.9 cm in diameter. RIGHT KIDNEY: There is no hydronephrosis. There is a 0.5 cm echogenic calculus at the midpole. There are no focal parenchymal lesions. The kidney measures 11.9 cm in maximum dimension. FREE FLUID: As described above there is trace pericholecystic fluid. IMPRESSION: 1. There are multiple mobile echogenic gallstones with sludge in the gallbladder. There is polycystic fluid, and the patient was tender in the right upper quadrant. The CBD is mildly prominent. 2. The liver has diffusely increased echogenicity consistent with hepatic steatosis. 3. There is a nonobstructive renal calculus at the midpole of the right kidney
[2018-01-24 14:09] VITALS: BP 140/85
[2018-01-24 22:17] VITALS: BP 166/87
[2018-01-25] VITALS (7 sets, daily range): BP systolic 130–169; BP diastolic 70–95
--- NOTE | 2018-01-25 07:31 | PN- Housestaff ---
Edith GILLIS,Cuong 01/25/18 0731: Subjective Follow-up For: COPD Exacerbation Elevated Transaminases Subjective: Patient was seen and examined today. Reports continued shortness of breath, which worsens with exerition. Nonproductive cough. Reports white vaginal discharge and occasional irritation. Denies fever, chills, nausea/vomitting, abdominal pain, dysuria/hematuria. No acute events overnight. Review of Systems Constitutional: Reports: see HPI. Objective Last 24 Hrs of Vital Signs/I&O Vital Signs Date Time Temp Pulse Resp B/P B/P Pulse O2 O2 Flow FiO2 Mean Ox Delivery Rate 01/25 06 97.9 78 20 169/95 95 Nasal 4.0L Cannula 01/25 0000 Nasal 4.0L Cannula 01/24 2217 97.7 107 22 166/87 92 01/24 1622 92 Nasal 4.0L Cannula 01/24 1600 Nasal 4.0L Cannula 01/24 1409 97.6 107 20 140/85 93 01/24 1348 95 Nasal 5.0L Cannula 01/24 0840 93 Nasal 5.0L Cannula 01/24 0830 Nasal 5.0L Cannula 01/24 0814 89 130/90 01/24 0800 89 130/90 01/24 0800 94 Nasal 5.0L Cannula Intake & Output 01/25 0800 01/25 0000 01/24 1600 Intake Total 120 120 480 Output Total Balance 120 120 480 Intake, IV 20 20 Intake, Oral 100 100 480 Physical Exam General Appearance: Alert, Cooperative, Mild Distress HEENT: Atraumatic, Mucous Membr. moist/pink Cardiovascular: Regular Rate, Normal S1, Normal S2, No Murmurs Lungs: decreased airentry bilaterally, mildly improved from previous day, no wheezing Abdomen: Normal Bowel Sounds, Soft, No Tenderness, reducible abdominal hernia Neurological: Normal Speech, Cranial Nerves 3-12 NL Extremities: No Clubbing, No Cyanosis, No Edema, Normal Pulses, No Tenderness/ Swelling Vascular: Normal Pulses, Pulses Symmetrical Current Medications: Current Medications Sig/Ida Start time Last Medication Dose Route Stop Time Status Admin Albuterol Sulfate 3 ML EVERY 4 HRS/AWAKE 01/24 1200 AC 01/24 INH 2001 Aripiprazole 20 MG AT BEDTIME 01/24 2100 AC 01/24 PO 2036 Azithromycin 250 MG Q24H 01/24 2100 AC 01/24 PO 2036 Enoxaparin Sodium 40 MG DAILY 01/24 0900 AC 01/24 SC 0813 Gabapentin 300 MG TID 01/24 09 AC 01/24 PO 2036 Insulin Human Regular 0 Q6 01/24 0050 AC 01/25 SC 0554 Ipratropium [place] 2.5 ML EVERY 4 HRS/AWAKE 01/24 1200 AC 01/24 INH 2002 Losartan Potassium 50 MG DAILY 01/24 09 AC 01/24 PO 0814 Melatonin 5 MG AT BEDTIME 01/24 2100 AC 01/24 PO 2036 Methylprednisolone 40 MG Q8 01/24 2200 AC 01/25 IV 0548 Methylprednisolone 40 MG Q6 01/24 1200 DC 01/24 IV 1215 Methylprednisolone 60 MG Q6 01/24 0300 DC 01/24 IV 0528 Nystatin 5 ML 4 TIMES/DAY 01/24 900 AC 01/24 PO 2035 Nystatin 1 ARUNA BID 01/24 0239 01/24 TOP 2036 Oxybutynin Chloride 5 MG TID 01/24 09 AC 01/24 PO 2036 Paroxetine HCl 40 MG DAILY 01/24 09 AC 01/24 PO 0813 Patient Medication 1 ED ONE ONE 01/24 1330 HI 01/24 Teaching ED 01/24 1331 1707 Last 24 Hrs of Lab/Ryne Results Last 24 Hrs of Labs/Mics: Laboratory Tests 01/25/18 0635: Sodium Pending, Potassium Pending, Chloride Pending, Carbon Dioxide Pending, Anion Gap Pending, BUN Pending, Creatinine Pending, BUN/Creatinine Ratio Pending , Total Bilirubin Pending, Direct Bilirubin Pending, AST Pending, ALT Pending, Alkaline Phosphatase Pending, Total Protein Pending, Albumin Pending Microbiology 01/24 1307 LOWER RESP: Respiratory Culture - COLB 01/24 1307 LOWER RESP: Gram Stain - COLB Assessment/Plan Assessment: Patient is a 53-year-old female with a PMH significant for COPD on nocturnal supplemental O2 3 L, and 5 L when ambulating, bipolar disorder, overactive bladder, HTN, who was brought into the [facility] ED by ambulance complaining of worsening dyspnea, productive cough with greenish sputum. Patient presented to [facility] ED on 01/12/18 with similar complaints, but refused to be admitted. Patient has diminished breath sounds diffusely, Braxton sign positive, mild respiratory distress. Vital signs on presentation: T 99.7, P1 20, RR 24, BP 174/88, pulse ox 92% on 5 L O2 nasal cannula Labs: WBC 9.5, H/H 14.7/42.9, platelets 167, sodium 130, potassium 4.3, chloride 89, CO2 26, BUN 7, creatinine 0.5, glucose 313, AST 148, ALT 106, d-dimer 243 CXR with no signs of acute pathology Problem list 1. COPD exacerbation Patient continues to require 5L NC. Patient appears restless after signifcant steroid use and respiratory treatments. ECHO to look at pulmonary pressures - appear to be elevated with RVSP of 45mmHg. * will decrease from 40mg q8h to 40mg BID IV Solumedrol * continue IV Azithromycin * continue oxygen supplementation and wean down as tolerated to keep oxygen >92% * continue TRC/DuoNeb * send sputum culture * pulmonology consulted 2. Transaminitis with Braxton sign positive, patient endorses daily drinking of 2 beers and recent episodes of binge drinking Ultrasound of liver today is unremarkable. There is sludge and some stones in the gallbladder. * HIDA scan * GI consult * Repeat LFTs in AM 3. Type 2 diabetes, uncontrolled Blood sugars elevated likely secondary to significant steroid use for COPD exacerbation. Blood sugars were signficantly elevated today to the 400s. Novolog SS and diet was adjusted. * continue novolog high dose sliding scale * continue accuchecks TIDAC/qHS * consistent carbohydrate diet 4. Mild hyponatremia likely secondary to SIADH in the setting of chronic lung disease * fluid restriction * repeat Na in AM 5. Vaginal discharge Patient reports white vaginal discharge with mild irritation. Reports she recently completed a course of diflucan for yeast infection. Patient reports the vaginal discharge appears to be subsiding. Patient is refusing speculum exam to send specimen for pH, culture/microscopy. DVT PPx: ALPS, Heparin SQ Diet: Diabetic diet Code: Full code Problem List: 1. COPD exacerbation 2. Transaminitis 3. Vaginal discharge Pain Ratin Pain Location: n/a Pain Goal: Remain pain free Pain Plan: pain pathway prn Tomorrow's Labs & Rationales: caroline Rhoades MD,[place] 01/25/18 1013: Attending Review Statement Attending Statement Attending MD Statement: examined this patient, discuss w/resident/PA/GEAR ROOM KEEPER, agreed w/resident/PA/GEAR ROOM KEEPER, reviewed EMR data (avail), discussed with nursing, discussed with case mgmt, amended to note Attending Assessment/Plan: Sitting up in the chair. She reports feeling a little better compared to presentation. She continues to admit to shortness of breath with mild exertion. Denies any cough. Denies chest pain or palpitations. She denies nausea vomiting. Denies any abdominal pain. On examination air entry remains poor bilaterally with no added sounds. Problems: 1. COPD exacerbation 2. Chronic hypoxic respiratory failure 3. Abnormal LFTs with abdominal sonogram 4. Diabetes mellitus 5. Hyponatremia; likely secondary to SIADH. Plan: -Continue bronchodilator therapy. Continue therapy with Solu-Medrol. Decrease dose to twice daily today. -Recommend evaluation by the gastroenterology service of further evaluation of her abnormal LFTs and abdominal sonogram. She would likely require further imaging likely in the form of MRCP to rule out obstructive biliary stones and probably HIDA scan to rule out biliary dysfunction. She is currently afebrile with no leukocytosis with no tenderness on physical exam. -Patient is on Januvia at home. Blood glucose are elevated likely secondary to steroid use. Hold oral hypoglycemic medications. Increase sliding scale coverage. Check hemoglobin A1c. Last levels in 2016 was 10. -Sodium level acceptable. We will continue to monitor. -She complains of whitish vaginal discharge. Send discharge for pH, microscopy and culture. -Follow-up urine culture.
--- NOTE | 2018-01-25 08:55 | PN- Pulmonary ---
Subjective HPI/Critical Care Issues: Patient's feel shortness breath is improved. Objective Current Medications: Current Medications Sig/Ida Start time Last Medication Dose Route Stop Time Status Admin Albuterol Sulfate 3 ML EVERY 4 HRS/AWAKE 01/24 1200 AC 01/25 INH 0852 Aripiprazole 20 MG AT BEDTIME 01/24 2100 AC 01/24 PO 2037 Azithromycin 250 MG Q24H 01/24 2100 AC 01/24 PO 203 Enoxaparin Sodium 40 MG DAILY 01/24 09 AC 01/25 SC 0817 Gabapentin 300 MG TID 01/24 0900 AC 01/25 PO 0818 Insulin Aspart 0 TIDAC 01/25 0800 AC 01/25 SC 0817 Insulin Human Regular 0 Q6 01/24 0050 DC 01/25 SC 0554 Ipratropium [place] 2.5 ML EVERY 4 HRS/AWAKE 01/24 1200 AC 01/25 INH 0852 Losartan Potassium 50 MG DAILY 01/24 0900 AC 01/25 PO 0818 Melatonin 5 MG AT BEDTIME 01/24 2100 AC 01/24 PO 2037 Methylprednisolone 40 MG Q8 01/24 2200 AC 01/25 IV 0548 Methylprednisolone 40 MG Q6 01/24 1200 DC 01/24 IV 1215 Nystatin 5 ML 4 TIMES/DAY 01/24 09 AC 01/25 PO 0817 Nystatin 1 ARUNA BID 01/24 0239 AC 01/25 TOP 0818 Oxybutynin Chloride 5 MG TID 01/24 0900 AC 01/25 PO 0818 Paroxetine HCl 40 MG DAILY 01/24 0900 AC 01/25 PO 0818 Patient Medication 1 ED ONE ONE 01/24 1330 DC 01/24 Teaching ED 01/24 1331 1707 Vital Signs & I&O Last 24 Hrs of Vitals and I&O: Vital Signs Date Time Temp Pulse Resp B/P B/P Pulse O2 O2 Flow FiO2 Mean Ox Delivery Rate 01/25 0818 97.9 78 20 169/95 01/25 0620 97.9 78 20 169/95 95 Nasal 4.0L Cannula 01/25 0000 Nasal 4.0L Cannula 01/24 2217 97.7 107 22 166/87 92 01/24 1622 92 Nasal 4.0L Cannula 01/24 1600 Nasal 4.0L Cannula 01/24 1409 97.6 107 20 140/85 93 01/24 1348 95 Nasal 5.0L Cannula Intake & Output 01/25 1600 01/25 0800 06/ 0000 Intake Total 120 120 Output Total Balance 120 120 Intake, IV 20 20 Intake, Oral 100 100 Oxygen saturation 4 L 95% exam of the chest shows diminished breath sounds there are no wheezes cardiac exam shows regular S1 and S2 without murmurs. Function tests are improved. Abdominal ultrasound results reviewed Impression/Plan Impression/Plan Impression/Plan: 53-year-old admitted with exacerbation of COPD and is slowly improving. Recommendations: Continue IV steroids and Zithromax. We'll plan on oral prednisone tomorrow. Further evaluation of abnormal right upper quadrant ultrasound and LFTs per primary care team Taper FiO2 with improved saturations.
--- NOTE | 2018-01-25 12:46 | ECHOCARDIOGRAM REPORT ---
CHRISTI ASCENCIO Age: 53 : 1965 Gender: F Exam Date: 01/25/2018 10:22 Exam Location: 2 [address] Ht (in): 60 Wt (lb): 188 BSA: 1.94 BP: 130 / 90 Ordering Physician: Shey Bolden MD Referring Physician: Shey Bolden MD Technologist: Ethan Alamo [facility] Room Number: 232-1 Indications: Heart Failure Rhythm: Other Technical Quality: poor FINDINGS Left Ventricle Normal global left ventricular size, wall thickness, systolic function with no obvious regional wall motion abnormalities. Normal left ventricular ejection fraction estimated at 60-65%. Right Ventricle Normal right ventricular size and function. Right Atrium Normal right atrial size. Left Atrium Normal left atrial size. Mitral Valve Mitral valve not well visualized, grossly normal. Trace to mild mitral regurgitation. Aortic Valve Aortic valve not well visualized, grossly normal. Tricuspid Valve Tricuspid valve is normal in structure and function. Trace to mild tricuspid regurgitation. Right ventricular systolic pressure estimated to be elevated at 45 mmHg. Pulmonic Valve Pulmonic valve not well visualized, grossly normal. Pericardium No pericardial effusion. Great Vessels Normal size aortic root. CONCLUSIONS Poor Echo window. Normal left and right ventricular systolic function. Mild Pulmonary hypertension. Nicholas Trujillo M.D. (Electronically Signed) Final Date: 25 January 2018 12:45 MEASUREMENTS (Male / Female) Normal Values 2D ECHO LV Diastolic Diameter PLAX 4.8 cm 4.2 - 5.9 / 3.9 - 5.3 cm LV Systolic Diameter PLAX 3.0 cm 2.1 - 4.0 cm LV Fractional Shortening PLAX 37.5 % 25 - 46 % LV Ejection Fraction 2D Teich 67.4 % IVS Diastolic Thickness 0.9 cm LVPW Diastolic Thickness 0.9 cm LV Relative Wall Thickness 0.4 RV Internal Dim ED PLAX 3.2 cm 1.9 - 3.8 cm LVOT Diameter 2.0 cm Aortic Root Diameter 2.5 cm LA Systolic Diameter LX 2.9 cm 3.0 - 4.0 / 2.7 - 3.8 cm Ascending Aorta Diameter 2.9 cm DOPPLER AV Peak Velocity 185.0 cm/s AV Peak Gradient 13.7 mmHg AV Mean Velocity 135.0 cm/s AV Mean Gradient 8.0 mmHg AV Velocity Time Integral 37.2 cm LVOT Peak Velocity 86.5 cm/s LVOT Peak Gradient 3.0 mmHg LVOT Mean Velocity 52.2 cm/s LVOT Mean Gradient 1.0 mmHg LVOT Velocity Time Integral 17.2 cm LVOT Stroke Volume 54.0 cm AV Area Cont Eq vti 1.5 cm AV Area Cont Eq pk 1.5 cm MV Peak Velocity 141.0 cm/s MV Peak Gradient 8.0 mmHg MV Mean Velocity 83.5 cm/s MV Mean Gradient 3.0 mmHg Mitral E Point Velocity 107.0 cm/s Mitral A Point Velocity 121.0 cm/s Mitral E to A Ratio 0.9 MV PHT Velocity 124.0 cm/s MV Deceleration [place] 638.0 cm/s MV Pressure Half Time 58.3 ms MV Area PHT 3.8 cm MV Deceleration Time 232.0 ms TR Peak Velocity 299.0 cm/s TR Peak Gradient 35.8 mmHg Right Atrial Pressure 10.0 mmHg Pulmonary Artery Systolic Pressu 45.8 mmHg Right Ventricular Systolic Press 45.8 mmHg PV Peak Velocity 103.0 cm/s PV Peak Gradient 4.2 mmHg PV Mean Velocity 70.3 cm/s PV Mean Gradient 2.0 mmHg PV Velocity Time Integral 21.4 cm LV E' Lateral Velocity 9.0 cm/s Mitral E to LV E' Lateral Ratio 11.9 LV E' Septal Velocity 11.5 cm/s Mitral E to LV E' Septal Ratio 9.3
--- NOTE | 2018-01-25 17:18 | NUCLEAR MEDICINE REPORT ---
EXAMINATION: NM BILIARY TRACT WITH ORAL FATTY MEAL CLINICAL INFORMATION: Braxton's positive on ultrasound, sludge and stones seen mild common bile duct dilatation. COMPARISON: No previous biliary scan is available for comparison. Abdominal ultrasound dated 01/24/2018 is available for comparison. TECHNIQUE: Serial gamma scintillation camera images were obtained over the abdomen for a total observation period of 143 minutes following the intravenous administration of 5.1 mCi Tc-99m Choletec. FINDINGS: There is good concentration of activity in the liver by 5 minutes post injection. Biliary activity is visualized by 10 minutes. The gallbladder is well visualized by 20 minutes. Small bowel is well visualized by 70 minutes. At 60 minutes post Mebrofenin injection, 8 ounces of Ensure-plus Brand was administered orally and an additional 60 minutes of images were obtained. There is good emptying of the gallbladder following ingestion of the fatty meal. At the end of the study there is good clearance of activity from the liver and visualization of diffuse small bowel activity. The calculated gallbladder ejection fraction is 39% (normal gallbladder ejection fraction using Ensure supplement orally is greater than 33%). IMPRESSION: Visualization of the gallbladder is evidence of a patent cystic duct and strong evidence against the diagnosis of acute cholecystitis. The common bile duct is patent. Gallbladder emptying and ejection fraction are normal. Liver function appears normal.
--- NOTE | 2018-01-25 18:32 | Cons- Gastroenterology ---
General Information and HPI Consulting Request Date of Consult: 01/25/18 Requested By: Verona GILLIS,Lincoln Reason for Consult: I was called midday today by the hospitalist service to assess chronic intermittent elevated transaminases, present x years, in a patient with fatty liver & hx EtOH abuse, admitted for flare of COPD, HD # 2. 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 She previously was in the [facility] ER 01/12/18 with similar complaints (Quick Strep Group A & Beta Strep TC - both negative), but refused to be admitted then, & was sent home on a Prenisone taper & Amoxicillin. 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 She denied taking any statins or hx of HLD, although the [facility] computer shows she had mildly elevated T Chol & TG in the past. Upon arrival, BP 174/88, P 120, R 24, T 99.7, O2 sat 5L 93%. She was given IV Solu-Medrol, Atrovent, Proventil, Tylenol, Azithromycin & Ceftriaxone in the ER, after being cultured. Her other outpt meds were given, as well. She noted GARCIA f/ b dyspnea at rest, wheezing, low grade fevers, & was admitted with a flare of COPD. There was no CP, palpitations, LOC, or edema. *According to the [facility] computer, the patient's transaminases have fluctuated since 2005. Of note, the patient admitted to drinking at least 48 oz. beer daily , last on the day of presentation. She admitted to binge drinking over the past 2 weekends, to celebrate her birthday. She denied any history of EtOH withdrawal, DTs or seizures. She denied any family history of GI disease, GI CA , or inherited liver disease, although her son, Sudeep, is currently an inpt at [facility] with EtOH pancreatitis. Her GB is intact. She denied any history of blood transfusion, IVDA, tattoos, body piercings (aside from earrings), or history of right-sided CHF (although 01/24/18: Echo- mild pulm HTN, elevated RV pressue 45 mm Hg, nl LVEF 60-65%). There was no documented thrombocytopenia. I do not see any recent PT/PTT in the computer. She denied any abdominal pain. She had morbid obesity as above, including that her abdominal girth has been this way for at least 10 years. She denied any jaundice, dark urine, light stools, or pruritus. She denied any reflux, odynophagia, dysphagia, hematemesis , melena, nausea, vomiting, or early satiety. She claimed she had "irritable bowel"- diarrhea predominant, which she stated was well controlled on Imodium, as needed. She denied any constipation, obstipation, change in stool caliber, tenesmus, or rectal bleeding. She had never had a baseline colonoscopy, despite her age (uncertain if her COPD would allow for sedation for this). She denied any herbal medications, except Melatonin. She denied any significant Tylenol use or NSAID use. *When I was called earlier today, I advised a HIDA scan to dianna define her GB function. She tolerated a DM diet. 01/09/14: Hep Bs Ag, Hep B core Ab (total), Hep C Ab IgG, & HIV- all negative. 02/09/16: HgbA1C 10.0. 01/23/18: 2100- Admission labs- WBC 9.5 (75% gran/7 gran Ab), H/H 14.7/42.9, MCV 91.2, RDW 11.9, PLT 167, glu 313, BUN/Cr 7/0.5, GFR > 60, Na 130, K 4.3, HCO3 26 , AG 14, Mg 1.8, Ca 8.7, alb 3.8, glob 2.9, TBil 0.6, alk phos 114, *AST 148, * ALT 106, *EtOH 23, troponin < 0.01, BNP 70.9, d-Dimer 243. 01/24/18: Utox- neg. 01/24/18: U/A- hazy, yellow, 1.010, 6.0, 5-10 RBC, 5-10 WBC, few bact, mod epith , > 1000 gluose, 15+ ketone, sm Hgb, neg bili, urobil 0.2, 30+ prot, neg nitrite , tr esterase. 01/25/18: 0635- BUN/Cr 18/0.4, GFR > 60, Na 131, K 4.6, HCO3 30, AG 10, alb 3.3 , glob 2.8, TBil 0.7, DBil 0.3, alk phos 87, AST 59, ALT 81. 01/23/18: BC x 2- neg so far 01/24/18: Strep Pneumo urinary Ag- neg; Legionella urinary Ag- neg. 01/24/18: UC- pending. 01/23/18: EKG- ST @ 117, nl axis, LAE, IRBBB, NSST w/o change (baseline artifact ). 01/23/18: XRY-PORTABLE CHEST XRAY- No acute cardiopulmonary disease. 01/24/18: ECHOCARDIOGRAM- Poor Echo window. Normal left and right ventricular systolic function, with LVEF 60-65%. No regional wall motion abnormalities. No significant valvulopathy. Elevated RV pressure 45 mm Hg. Mild pulmonary hypertension. 01/24/18: US-LIMITED (RUQ) ABDOMEN- 1. There are multiple mobile echogenic gallstones with sludge in the gallbladder. There is trace pericholecystic fluid, and the patient was tender in the right upper quadrant. Normal GB wall thickness 2 mm. Questionable tiny GB polyp.The CBD is mildly prominent 9 mm. 2. The liver has diffusely increased echogenicity consistent with hepatic steatosis. No focal hepatic defects. 3. There is a nonobstructive 5 mm renal calculus at the midpole of the right kidney 01/25/18: HIDA SCAN WITH ORAL FATTY MEAL- Visualization of the gallbladder is evidence of a patent cystic duct and strong evidence against the diagnosis of acute cholecystitis. The common bile duct is patent. Gallbladder emptying and ejection fraction 39% are normal. Liver function appears normal. Allergies/Medications Allergies: Coded Allergies: No Known Allergies (09/14/17) Home Med List: Albuterol Sulfate 2.5 MG/3 ML (0.083 %) VIAL.NEB 1 Vial INH/GENET PRN RESPIRATORY (Reported) Albuterol Sulfate (Proair Respiclick) 90 MCG AER.POW.BA 2 PUFF INH Q4-6 PRN COPD Aripiprazole (Abilify) 20 MG TABLET 1 TAB PO QPM MENTAL HEALTH (Reported) Budesonide/Formoterol Fumarate (Symbicort 160-4.5 Mcg Inhaler) 10.2 GM HFA.AER.AD 2 PUF INH BID COPD Gabapentin 300 MG CAPSULE 1 CAP PO TID MENTAL HEALTH (Reported) Hydroxyzine Pamoate (Vistaril) 50 MG CAPSULE 2 CAP PO QPM SLEEP (Reported) Loperamide HCl (Anti-Diarrheal) 2 MG CAPSULE 3 CAP PO DAILY DIARRHEA ( Reported) Losartan Potassium 50 MG TABLET 1 TAB PO DAILY HTN (Reported) Melatonin 5 MG TABLET SLEEP (Reported) Nystatin 100,000 UNIT/ML ORAL.SUSP 5 ML PO 4 TIMES/DAY thrush Oxybutynin Chloride 5 MG TABLET 1 TAB PO TID BLADDER (Reported) Paroxetine HCl 40 MG TABLET 1 TAB PO DAILY MENTAL HEALTH (Reported) Sitagliptin Phosphate (Januvia) 100 MG TABLET 1 TAB PO DAILY DIABETES Tiotropium [place] (Spiriva) 18 MCG CAP.W.DEV 1 CAP INH DAILY RESPIRATORY ( Reported) Current Medications: Current Medications Sig/Ida Start time Last Medication Dose Route Stop Time Status Admin Albuterol Sulfate 3 ML EVERY 4 HRS/AWAKE 01/24 1200 AC 01/25 INH 1610 Aripiprazole 20 MG AT BEDTIME 01/24 2100 AC 01/24 PO 203 Azithromycin 250 MG Q24H 01/24 2100 AC 01/24 PO 203 Enoxaparin Sodium 40 MG DAILY 01/24 0900 AC 01/25 TX 0817 Gabapentin 300 MG TID 01/24 0900 AC 01/25 PO 1610 Insulin Aspart 12 UNITS ONCE ONE 01/25 1915 DC 01/25 TX 01/25 1916 1912 Insulin Aspart 4 UNITS ONCE ONE 01/25 1900 CAN SC 01/25 1901 Insulin Aspart 2 UNITS ONCE ONE 01/25 1645 DC 01/25 TX 01/25 1646 1642 Insulin Aspart 0 TIDAC 01/25 0800 AC 01/25 TX 1608 Insulin Detemir 8 UNITS BID 01/25 2100 AC SC Insulin Human Regular 0 Q6 01/24 0050 AL 01/25 TX 0554 Ipratropium [place] 2.5 ML EVERY 4 HRS/AWAKE 01/24 1200 AC 01/25 INH 1610 Lorazepam 0.5 MG ONCE ONE 01/25 1315 DC 01/25 IV 01/25 1316 1316 Losartan Potassium 50 MG DAILY 01/24 0900 AC 01/25 PO 0818 Melatonin 5 MG AT BEDTIME 01/24 2100 AC 01/24 PO 2037 Methylprednisolone 40 MG BID 01/25 2100 AC IV Methylprednisolone 40 MG Q8 01/24 2200 DC 01/25 IV 0548 Nystatin 5 ML 4 TIMES/DAY 01/24 0900 AC 01/25 PO 1653 Nystatin 1 ARUNA BID 01/24 0239 AC 01/25 TOP 0818 Oxybutynin Chloride 5 MG TID 01/24 0900 AC 01/25 PO 1610 Paroxetine HCl 40 MG DAILY 01/24 0900 AC 01/25 PO 0818 Patient Medication 1 ED ONE ONE 01/25 1130 DC 01/25 Teaching ED 01/25 1131 1609 Past History Travel History Traveled to [place] past 21 day No Medical History Blood Transfusion Hx: No Neurological: NONE EENT: NONE Cardiovascular: hypertension, hyperlipidemia (borderline) Respiratory: COPD, 02 DEPENDENT PRN- 3L hs & 5L with ambulation Gastrointestinal: CHRONIC DIARRHEA "IBS" Hepatic: cholelithiasis (prob incidental), fatty liver Renal: nephrolithiasis, OVERACTIVE BLADDER Musculoskeletal: NONE Psychiatric: anxiety, bipolar disease, depression, alcohol abuse Endocrine: diabetes, obesity Blood Disorders: NONE Cancer(s): NONE 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 Cervical cancer, Onset: 30-40. FH: breast cancer, Onset: 50-60. FH: myocardial infarction, Onset: 40-50. FATHER (Hit by ambulance). , Age 69; Cause: MVA (motor vehicle accident) . SON (4 mos old). , Age Infancy; Cause: SIDS (sudden infant syndrome). SON (EtOH pancreatitis). Age 30-40. DAUGHTER ([employer]). Age 23. Psychosocial History Where Do You Live? Home Who Do You Live With? child (son), boyfriend Services at Home: Oxygen Primary Language: Citizen Of [place] Smoking Status: Former Smoker (80 pack years, quit in 04/2017) ETOH Use: heavy use (> 48 oz beer daily & binge) Illicit Drug Use: denies illicit drug use Living Will? 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 Lives with boyfriend & her son. Had 3 children (1 son- 4 mos- SIDS). 1 son, Sudeep- 30, hx EtOH pancreatitis. 1 dtr- [employer]. Ex-80-pk-yr cigarette smoker, D/C 04/2017. EtOH abuse > 48 oz beer daily & occ binge drinking. Denied illicit drugs or IVDA. No tattoos. 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 Functional Ability ADLs Independent: dressing, eating, toileting, bathing. Ambulation: independent IADLs Independent: shopping, housework, finances, food prep, telephone, transportation , medication admin. Employment History Employment: Disability ECHO Results (as available) Date of last Echo 01/24/18 EF% 65 Review of Systems Review of Systems: Full 14 point review of systems otherwise noncontributory, and as above. Review of Systems Constitutional: Reports: fever (resolved). Denies: chills, diaphoresis, malaise, weakness, unexplained weight loss. EENTM: Denies: blurred vision, double vision, visual changes, eye pain, eye drainage, eye tearing, icterus, ear discharge, ear pain, ear redness, hearing changes, nasal congestion, epistaxis, nasal pain, throat pain, throat swelling, mouth pain, tooth pain. Cardiovascular: Denies: chest pain, edema, orthopena, palpitations, peripheral edema, syncope. Respiratory: Reports: cough (greenish sputum), short of breath, sputum production, wheezing. Denies: hemoptysis, orthopnea, stridor. GI: Reports: diarrhea ("chronic IBS-D"- stable). Denies: abdominal pain, bloating, constipation, distention, bowel incontinence, melena, nausea, bloody stool, changes in stool, vomiting, steatorrhea. Genitourinary: Reports: frequency (overactive bladder). Denies: discharge, dysuria, hematuria, hesitation, nocturia, pain, urgency. Musculoskeletal: Denies: back pain, gout, joint pain, joint swelling, muscle pain, muscle stiffness, neck pain. Skin: Reports: rash (fungal under breasts). Denies: cysts, change in skin color, change in hair/nails, dryness, erythema, jaundice, lesions, lymphangitis, lumps, moles. Neurological/Psychological: Reports: anxiety, depressed (bipolar), emotional problems. Denies: ataxia, cognitive dysfunction, confusion, dementia, headache, numbness, paresthesia, pre -existing deficit, petit mal seizures, tingling, tremors, tonic-clonic seizures, unable to move lower ext, unable to move upper ext, weakness. Hematologic/Endocrine: Denies: bruising, bleeding, polyuria, polydipsia. Immunologic/Allergic: Denies: splenectomy, HIV/AIDS, lymphadenopathy. All Other Systems: Reviewed and Negative Exam & Diagnostic Data Vital Signs and I&O Vital Signs Date Time Temp Pulse Resp B/P B/P Pulse O2 O2 Flow FiO2 Mean Ox Delivery Rate 01/25 1610 92 Nasal 4.0L Cannula 01/25 1200 97.9 79 20 169/95 01/25 1000 97.9 78 20 169/95 01/25 0856 92 Nasal 4.0L Cannula 01/25 0818 97.9 78 20 169/95 01/25 0800 97.9 78 20 169/95 01/25 0800 95 Nasal 4.0L Cannula 01/25 0620 97.9 78 20 169/95 95 Nasal 4.0L Cannula 01/25 0000 Nasal 4.0L Cannula 01/24 2217 97.7 107 22 166/87 92 Intake & Output 01/25 1600 01/25 0400 01/24 1600 01/24 0400 01/23 1600 01/23 0400 Intake Total 610 120 500 350 Output Total 400 600 Balance 610 120 100 -250 Intake, IV 20 20 20 350 Intake, Oral 540 100 480 Intake, Tube 50 Irrigant Output, Urine 400 600 Patient 188 lb 204 lb Weight Weight Reported by Patient Reported by Patient Measurement Method Physical Exam: Well-developed, well-nourished, morbidly obese female, in no apparent distress. Sclera anicteric. Conjunctiva pink. Oropharynx clear. Poor dentition. No oral thrush. No aphthous ulcers. There is no adenopathy, thyromegaly, or JVD. No peripheral stigmata of inflammatory bowel disease or chronic liver disease on exam. No spiders on the antrerior chest wall. No CVA tenderness. No spine tenderness. Breast & pelvic exams: API (reportedly with fungal infx under breasts). Lungs: clear to A&P, with slightly prolonged expiratory phase. No wheezing, rales, or rhonchi. Slight decreased BS at the bases B/L. Heart exam: regular rate rhythm, S1 and S2, without any murmur. Abdominal exam: normal bowel sounds, morbidly obese belly, mildly distended (chronic), nontender without guarding or rebound. Reducible umbilical hernia & ? midline rectus diastasis. Otherwise, no mass. No definite organomegaly, within the limits of the body habitus. *Negative Braxton sign. No fluid shift. No pulsatile mass. Digital rectal exam 01/25/18: deferred by patient. Extremities: without C, C, or E. No palpable cords. Mild DJD. No palmar erythema. No Dupuytren's contractures. Distal pulses 2+ bilaterally. DTRs 2+ bilaterally. Alert and oriented x 3. Right handed. CN II-XII intact. Motor 5/5 B/L. Minimal tremor. No asterixis. Results Pertinent Lab Results: Laboratory Tests 01/25 01/24 0635 0130 Chemistry Sodium (137 - 145 mmol/L) 131 L Potassium (3.5 - 5.1 mmol/L) 4.6 Chloride (98 - 107 mmol/L) 92 L Carbon Dioxide (22 - 30 mmol/L) 30 Anion Gap (5 - 16) 10 BUN (7 - 17 mg/dL) 18 H Creatinine (0.5 - 1.0 mg/dL) 0.4 L Estimated GFR (>60 ml/min) > 60 BUN/Creatinine Ratio (7 - 25 %) 45.0 H Total Bilirubin (0.2 - 1.3 mg/dL) 0.7 Direct Bilirubin (< 0.4 mg/dL) 0.3 AST (14 - 36 U/L) 59 H ALT (9 - 52 U/L) 81 H Alkaline Phosphatase (<127 U/L) 87 Total Protein (6.3 - 8.2 g/dL) 6.1 L Albumin (3.5 - 5.0 g/dL) 3.3 L Toxicology Urine Opiates Screen (>2000 NG/ML) < 100 Methadone Screen (>300 NG/ML) 48 Barbiturate Screen (>200 NG/ML) < 60 Ur Phencyclidine Scrn (>25 NG/ML) < 6.00 Amphetamines Screen (>1000 NG/ML) < 100 U Benzodiazepines Scrn (>200 NG/ML) < 85 Urine Cocaine Screen (>300 NG/ML) < 50 Urine Cannabis Screen (>50 NG/ML) < 5.00 Urines Urinalysis LIGHT H Urine Color (YEL,AMB,STR) YEL Urine Clarity (CLEAR) HAZY H Urine pH (5.0 - 8.0) 6.0 Ur Specific Leroy (1.001 - 1.035) 1.010 Urine Protein (NEG,<30 MG/DL) 30 H Urine Ketones (NEG) 15 H Urine Nitrite (NEG) NEG Urine Bilirubin (NEG) NEG Urine Urobilinogen (0.1 - 1.0 EU/dl) 0.2 Ur Leukocyte Esterase (NEG) TRACE H Ur Microscopic SEDIMENT EXAMINED Urine RBC (0 - 5 /HPF) 5-10 H Urine WBC (0 - 2 /HPF) 5-10 H Ur Epithelial Cells (NONE,FEW) MOD H Urine Bacteria (NEG/NONE) FEW H Urine Mucus (FEW,NONE) FEW Urine Hemoglobin (NEG) SMALL H Urine Glucose (N MG/DL) >=1000 H 06/10 2100 Chemistry Sodium (137 - 145 mmol/L) 130 L Potassium (3.5 - 5.1 mmol/L) 4.3 Chloride (98 - 107 mmol/L) 89 L Carbon Dioxide (22 - 30 mmol/L) 26 Anion Gap (5 - 16) 14 BUN (7 - 17 mg/dL) 7 Creatinine (0.5 - 1.0 mg/dL) 0.5 Estimated GFR (>60 ml/min) > 60 BUN/Creatinine Ratio (7 - 25 %) 14.0 Glucose (65 - 99 mg/dL) 313 H Calcium (8.4 - 10.2 mg/dL) 8.7 Magnesium (1.6 - 2.3 mg/dL) 1.8 Total Bilirubin (0.2 - 1.3 mg/dL) 0.6 AST (14 - 36 U/L) 148 H ALT (9 - 52 U/L) 106 H Alkaline Phosphatase (<127 U/L) 114 Troponin I (< 0.11 ng/ml) < 0.01 Tta-P-[id number] Pept (<125 pg/mL) 70.9 Total Protein (6.3 - 8.2 g/dL) 6.7 Albumin (3.5 - 5.0 g/dL) 3.8 Globulin (1.9 - 4.2 gm/dL) 2.9 Albumin/Globulin Ratio (1.1 - 2.2 %) 1.3 Coagulation D-Dimer High Sensitivty (0 - 243 ng/ml) 243 Hematology CBC w Diff NO MAN DIFF REQ WBC (4.8 - 10.8 /CUMM) 9.5 RBC (4.20 - 5.40 /CUMM) 4.71 Hgb (12.0 - 16.0 G/DL) 14.7 Hct (37 - 47 %) 42.9 MCV (81.0 - 99.0 FL) 91.2 MCH (27.0 - 31.0 PG) 31.2 H MCHC (33.0 - 37.0 G/DL) 34.2 RDW (11.5 - 14.5 %) 11.9 Plt Count (130 - 400 /CUMM) 167 MPV (7.4 - 10.4 FL) 6.2 L Gran % (42.2 - 75.2 %) 74.6 Lymphocytes % (20.5 - 51.1 %) 15.6 L Monocytes % (1.7 - 9.3 %) 9.0 Eosinophils % (0 - 5 %) 0.3 Basophils % (0.0 - 2.0 %) 0.5 Absolute Granulocytes (1.4 - 6.5 /CUMM) 7.1 H Absolute Lymphocytes (1.2 - 3.4 /CUMM) 1.5 Absolute Monocytes (0.10 - 0.60 /CUMM) 0.9 H Absolute Eosinophils (0.0 - 0.7 /CUMM) 0 Absolute Basophils (0.0 - 0.2 /CUMM) 0 Toxicology Serum Alcohol (<10 MG/DL) 23.0 Imaging/Other Studies: 01/23/18: EKG- ST @ 117, nl axis, LAE, IRBBB, NSST w/o change (baseline artifact ). 01/23/18: XRY-PORTABLE CHEST XRAY- No acute cardiopulmonary disease. 01/24/18: ECHOCARDIOGRAM- Poor Echo window. Normal left and right ventricular systolic function, with LVEF 60-65%. No regional wall motion abnormalities. No significant valvulopathy. Elevated RV pressure 45 mm Hg. Mild pulmonary hypertension. 01/24/18: US-LIMITED (RUQ) ABDOMEN- 1. There are multiple mobile echogenic gallstones with sludge in the gallbladder. There is trace pericholecystic fluid, and the patient was tender in the right upper quadrant. Normal GB wall thickness 2 mm. Questionable tiny GB polyp.The CBD is mildly prominent 9 mm. 2. The liver has diffusely increased echogenicity consistent with hepatic steatosis. No focal hepatic defects. 3. There is a nonobstructive 5 mm renal calculus at the midpole of the right kidney 01/25/18: HIDA SCAN WITH ORAL FATTY MEAL- Visualization of the gallbladder is evidence of a patent cystic duct and strong evidence against the diagnosis of acute cholecystitis. The common bile duct is patent. Gallbladder emptying and ejection fraction 39% are normal. Liver function appears normal. 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 She previously was in the [facility] ER 01/12/18 with similar complaints (Quick Strep Group A & Beta Strep TC - both negative), but refused to be admitted then, & was sent home on a Prenisone taper & Amoxicillin. 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 She denied taking any statins or hx of HLD, although the [facility] computer shows she had mildly elevated T Chol & TG in the past. Upon arrival, BP 174/88, P 120, R 24, T 99.7, O2 sat 5L 93%. She was given IV Solu-Medrol, Atrovent, Proventil, Tylenol, Azithromycin & Ceftriaxone in the ER, after being cultured. Her other outpt meds were given, as well. She noted GARCIA f/ b dyspnea at rest, wheezing, low grade fevers, & was admitted with a flare of COPD. There was no CP, palpitations, LOC, or edema. *According to the [facility] computer, the patient's transaminases have fluctuated since 2005. Of note, the patient admitted to drinking at least 48 oz. beer daily , last on the day of presentation. She admitted to binge drinking over the past 2 weekends, to celebrate her birthday. She denied any history of EtOH withdrawal, DTs or seizures. She denied any family history of GI disease, GI CA , or inherited liver disease, although her son, Sudeep, is currently an inpt at [facility] with EtOH pancreatitis. Her GB is intact. She denied any history of blood transfusion, IVDA, tattoos, body piercings (aside from earrings), or history of right-sided CHF (although 01/24/18: Echo- mild pulm HTN, elevated RV pressue 45 mm Hg, nl LVEF 60-65%). There was no documented thrombocytopenia. I do not see any recent PT/PTT in the computer. She denied any abdominal pain. She had morbid obesity as above, including that her abdominal girth has been this way for at least 10 years. She denied any jaundice, dark urine, light stools, or pruritus. She denied any reflux, odynophagia, dysphagia, hematemesis , melena, nausea, vomiting, or early satiety. She claimed she had "irritable bowel"- diarrhea predominant, which she stated was well controlled on Imodium, as needed. She denied any constipation, obstipation, change in stool caliber, tenesmus, or rectal bleeding. She had never had a baseline colonoscopy, despite her age (uncertain if her COPD would allow for sedation for this). She denied any herbal medications, except Melatonin. She denied any significant Tylenol use or NSAID use. *When I was called earlier today, I advised a HIDA scan to beter define her GB function. She tolerated a DM diet. 01/09/14: Hep Bs Ag, Hep B core Ab (total), Hep C Ab IgG, & HIV- all negative. 02/09/16: HgbA1C 10.0. 01/23/18: 2100- Admission labs- WBC 9.5 (75% gran/7 gran Ab), H/H 14.7/42.9, MCV 91.2, RDW 11.9, PLT 167, glu 313, BUN/Cr 7/0.5, GFR > 60, Na 130, K 4.3, HCO3 26 , AG 14, Mg 1.8, Ca 8.7, alb 3.8, glob 2.9, TBil 0.6, alk phos 114, *AST 148, * ALT 106, *EtOH 23, troponin < 0.01, BNP 70.9, d-Dimer 243. 01/24/18: Utox- neg. 01/24/18: U/A- hazy, yellow, 1.010, 6.0, 5-10 RBC, 5-10 WBC, few bact, mod epith , > 1000 gluose, 15+ ketone, sm Hgb, neg bili, urobil 0.2, 30+ prot, neg nitrite , tr esterase. 01/25/18: 0635- BUN/Cr 18/0.4, GFR > 60, Na 131, K 4.6, HCO3 30, AG 10, alb 3.3 , glob 2.8, TBil 0.7, DBil 0.3, alk phos 87, AST 59, ALT 81. 01/23/18: BC x 2- neg so far 01/24/18: Strep Pneumo urinary Ag- neg; Legionella urinary Ag- neg. 01/24/18: UC- pending. 01/23/18: EKG- ST @ 117, nl axis, LAE, IRBBB, NSST w/o change (baseline artifact ). 01/23/18: XRY-PORTABLE CHEST XRAY- No acute cardiopulmonary disease. 01/24/18: ECHOCARDIOGRAM- Poor Echo window. Normal left and right ventricular systolic function, with LVEF 60-65%. No regional wall motion abnormalities. No significant valvulopathy. Elevated RV pressure 45 mm Hg. Mild pulmonary hypertension. 01/24/18: US-LIMITED (RUQ) ABDOMEN- 1. There are multiple mobile echogenic gallstones with sludge in the gallbladder. There is trace pericholecystic fluid, and the patient was tender in the right upper quadrant. Normal GB wall thickness 2 mm. Questionable tiny GB polyp.The CBD is mildly prominent 9 mm. 2. The liver has diffusely increased echogenicity consistent with hepatic steatosis. No focal hepatic defects. 3. There is a nonobstructive 5 mm renal calculus at the midpole of the right kidney 01/25/18: HIDA SCAN WITH ORAL FATTY MEAL- Visualization of the gallbladder is evidence of a patent cystic duct and strong evidence against the diagnosis of acute cholecystitis. The common bile duct is patent. Gallbladder emptying and ejection fraction 39% are normal. Liver function appears normal. As of 01/25/18, I feel that the vast majority of the patient's mild fluctuating transaminitis, present for years, dating back to 2005, is from fatty liver. There probably was a superimposed component of alcohol binge drinking, affecting the LFTs on admission, verified by her EtOH level. Although the RUQ sono showed gallstones, sludge, & a ? tiny GB polyp, the subsequent HIDA scan showed normal GB function, normal liver function, normal small bowel uptake (implying patent CBD), and normal GB EF. The gallstones appear to be incidental in nature. The patient has innumerable risk factors for fatty liver, including morbid obesity, HTN, poorly controlled AODM, ? HLD, & EtOH. She had no peripheral manifestations of cirrhosis on exam. Similarly, there was no evidence of thrombocytopenia, and she had normal albumin:globulin ratio, also going against cirrhosis. There were no recent coags in the computer. 01/09/14: Hep Bs Ag, Hep B core Ab (total), Hep C Ab IgG, & HIV- all negative. Somewhat limited abdominal exam in view of body habitus, revealed a negative Braxton sign. There was a tiny reducible umbilical hernia and perhaps, a rectus diastases. GI ROS from above & below negative, except for "IBS-D", apparently well-controlled on Imodium as needed. She had never had a baseline colonoscopy with random biopsies to rule out microscopic and/or collagenous colitis, etc. Her COPD would make this somewhat tenuous, and she would need pulmonary clearance prior to considering this as an outpatient. Additionally, one might consider checking a celiac panel, in view of her IBS-D and elevated LFTs. *SUGGEST: Low fat, DM, 2g Na + diet. Add increased fiber. May continue Imodium as needed. Strict control of body weight, glucose, lipids, & BP. EtOH cessation. Consider adding Vitamin E 800 IU po daily for fatty liver for it's anti-oxidant effect, although this probably works better in non-DM patients. Avoid hepatotoxins. Avoid NSAIDs. Consider checking full Hep A, B, & C serologies, HIV, PT with INR, IgA, tTG Ab, DGP Ab, Fe, TIBC, ferritin, BHANU, AMA, TFT with TSH, & A1AT level. If LFTs persist or worsen, consideration for outpt FibroScan (check liver elasticity) or ultimately, liver biopsy, which was discussed with the patient. The patient would need pulmonary clearance for an outpatient baseline colonoscopy with random biopsies. The above findings appeared to be chronic in nature. The patient was given my office number. Further inpatient GI follow-up as needed.` The case was previously discussed with the medical house staff. Treatment of the numerous issues, including COPD, DM, DVT prophylaxis, etc., as per the medicine & pulmonary services. Problem List: 1. Transaminitis 2. Fatty liver 3. Gallstones 4. Alcohol abuse 5. Morbid obesity 6. Irritable bowel syndrome with diarrhea 7. COPD exacerbation 8. Type 2 diabetes mellitus 9. Bipolar I disorder Copies To: Verona GILLIS,[place]; Elyssa GILLIS,Vince Soto; Yenifer Richardson APRN; Carlos GILLIS, [facility] Consult Acknowledgment - Thank you for your consult request.
[2018-01-26 02:00] VITALS: BP 140/70
[2018-01-26 06:00] VITALS: BP 146/76
--- NOTE | 2018-01-26 07:08 | PN- Housestaff ---
Edith GILLIS,Cuong 01/26/18 0708: Subjective Follow-up For: COPD Exacerbation Elevated Transaminases Subjective: Patient was seen and examined today. Patient reports shortness of breath and breathing has improved. Denies cough, congestion, fever/chills, n/v, abdominal pain, chest pain, lower extremity swelling. Reports continued vaginal discharge/irritation. Refusing vaginal exam. Reports that she does well with both diflucan and topical cream. Review of Systems Constitutional: Reports: see HPI. Objective Last 24 Hrs of Vital Signs/I&O Vital Signs Date Time Temp Pulse Resp B/P B/P Pulse O2 O2 Flow FiO2 Mean Ox Delivery Rate 01/26 0600 98.0 87 20 146/76 01/26 0200 98.1 90 20 140/70 01/26 0000 95 Nasal 4.0L Cannula 01/25 2219 98.1 92 20 130/70 93 Nasal Cannula 01/25 2200 98.1 92 20 130/70 01/25 1800 98.2 90 20 130/70 01/25 1610 92 Nasal 4.0L Cannula 01/25 1600 Nasal 4.0L Cannula 01/25 1200 97.9 79 20 169/95 01/25 1000 97.9 78 20 169/95 01/25 0856 92 Nasal 4.0L Cannula 01/25 0818 97.9 78 20 169/95 01/25 0800 97.9 78 20 169/95 01/25 0800 95 Nasal 4.0L Cannula Intake & Output 01/26 0800 01/26 0000 01/25 1600 Intake Total 70 500 490 Output Total Balance 70 500 490 Intake, IV 10 Intake, Oral 60 500 440 Intake, Tube 50 Irrigant Number 1 1 Bowel Movements Physical Exam General Appearance: Alert, Cooperative, No Acute Distress HEENT: Atraumatic, PERRLA, EOMI, Mucous Membr. moist/pink Cardiovascular: Regular Rate, Normal S1, Normal S2 Lungs: decreased air entry bilaterally - improved from previous day, no wheezing Abdomen: Normal Bowel Sounds, Soft, No Tenderness Extremities: No Clubbing, No Cyanosis, No Edema, Normal Pulses, No Tenderness/ Swelling Current Medications: Current Medications Sig/Ida Start time Last Medication Dose Route Stop Time Status Admin Albuterol Sulfate 3 ML EVERY 4 HRS/AWAKE 01/24 1200 AC 01/25 INH 2014 Aripiprazole 20 MG AT BEDTIME 01/24 2100 AC 01/25 PO 2214 Azithromycin 250 MG Q24H 01/24 2100 AC 01/25 PO 2215 Enoxaparin Sodium 40 MG DAILY 01/24 09 AC 01/25 SC 0817 Gabapentin 300 MG TID 01/24 09 AC 01/25 PO 2215 Insulin Aspart 0 AT BEDTIME 01/26 0400 AC 01/26 AZ 0400 Insulin Aspart 12 UNITS ONCE ONE 01/25 1915 DC 01/25 SC 01/25 1916 1912 Insulin Aspart 4 UNITS ONCE ONE 01/25 1900 CAN SC 01/25 1901 Insulin Aspart 2 UNITS ONCE ONE 01/25 1645 DC 01/25 SC 01/25 1646 1642 Insulin Aspart 0 TIDAC 01/25 0800 AC 01/25 SC 1608 Insulin Detemir 8 UNITS BID 01/25 2100 AC 01/25 SC 2222 Insulin Human Regular 0 Q6 01/24 0050 DC 01/25 SC 0554 Ipratropium [place] 2.5 ML EVERY 4 HRS/AWAKE 01/24 1200 AC 01/25 INH 2015 Lorazepam 0.5 MG ONCE ONE 01/25 1315 DC 01/25 IV 01/25 1316 1316 Losartan Potassium 50 MG DAILY 01/24 09 AC 01/25 PO 0818 Melatonin 5 MG AT BEDTIME 01/24 2100 AC 01/25 PO 2215 Methylprednisolone 40 MG BID 01/25 2100 AC 01/25 IV 2216 Methylprednisolone 40 MG Q8 01/24 2200 DC 01/25 IV 0548 Nystatin 5 ML 4 TIMES/DAY 01/24 09 AC 01/25 PO 2216 Nystatin 1 ARUNA BID 01/24 0239 AC 01/25 TOP 2216 Oxybutynin Chloride 5 MG TID 01/24 09 AC 01/25 PO 2214 Paroxetine HCl 40 MG DAILY 01/24 0900 AC 01/25 PO 0818 Patient Medication 1 ED ONE ONE 01/25 1130 DC 01/25 Teaching ED 01/25 1131 1609 Last 24 Hrs of Lab/Ryne Results Last 24 Hrs of Labs/Mics: Laboratory Tests 01/26/18 0855: Hemoglobin A1c 12.7 H 01/26/18 0855: Anion Gap 9, Estimated GFR > 60, BUN/Creatinine Ratio 42.0 H Assessment/Plan Assessment: Patient is a 53-year-old female with a PMH significant for COPD on nocturnal supplemental O2 3 L, and 5 L when ambulating, bipolar disorder, overactive bladder, HTN, who was brought into the [facility] ED by ambulance complaining of worsening dyspnea, productive cough with greenish sputum. Patient presented to [facility] ED on 01/12/18 with similar complaints, but refused to be admitted. Patient has diminished breath sounds diffusely, Braxton sign positive, mild respiratory distress. Vital signs on presentation: T 99.7, P1 20, RR 24, BP 174/88, pulse ox 92% on 5 L O2 nasal cannula Labs: WBC 9.5, H/H 14.7/42.9, platelets 167, sodium 130, potassium 4.3, chloride 89, CO2 26, BUN 7, creatinine 0.5, glucose 313, AST 148, ALT 106, d-dimer 243 CXR with no signs of acute pathology Problem list 1. COPD exacerbation Patient continues to require 5L NC. Patient appears restless after signifcant steroid use and respiratory treatments. ECHO to look at pulmonary pressures - appear to be elevated with RVSP of 45mmHg. * discontinued IV Solumedrol, started on PO prednisone today, will taper slowly * transitioned to PO Azithromycin * continue oxygen supplementation and wean down as tolerated to keep oxygen >92% * continue TRC/DuoNeb * send sputum culture * pulmonology consulted 2. Transaminitis with Braxton sign positive, patient endorses daily drinking of 2 beers and recent episodes of binge drinking Ultrasound of liver today is unremarkable. There is sludge and some stones in the gallbladder. HIDA scan was wnl with ejection fraction of 39%. Further follow up outpatient with GI. * monitor LFTs * outpatient follow up with GI 3. Type 2 diabetes, uncontrolled Blood sugars elevated likely secondary to significant steroid use for COPD exacerbation. Blood sugars were signficantly elevated overnight. Levemir was added. Patient's sugars remain high - likely attributed to steroid use however hemoglobin A1c today was 12.7 which is higher than her previous one. She does not appear to be controlled on Januvia only. Patient also reports that she is intermittently taking the medication. * continue novolog high dose sliding scale * continue accuchecks TIDAC/qHS * consistent carbohydrate diet * continue levemir 8 units BID 4. Mild hyponatremia likely secondary to SIADH in the setting of chronic lung disease. Appears to be improving with fluid restriction. * continue fluid restriction * repeat Na in AM 5. Vaginal discharge Patient reports white vaginal discharge with mild irritation. Reports she recently completed a course of diflucan for yeast infection. Patient reports the vaginal discharge appears to be subsiding. Patient is refusing speculum exam to send specimen for pH, culture/microscopy. * likely yeast infection - will try monistat * further evaluation outpatient with ob gyn physician assistant DVT PPx: ALPS, Heparin SQ Diet: Diabetic diet Code: Full code Problem List: 1. COPD exacerbation 2. Vaginal discharge Pain Ratin Pain Location: n/a Pain Goal: Remain pain free Pain Plan: per pain pathway Tomorrow's Labs & Rationales: bep -hyponatremia Verona GILLIS,Arronserajesusita 01/26/18 1215: Attending MD Review Statement Attending Statement Attending MD Statement: examined this patient, discuss w/resident/PA/CLOTH WASHER BACK TENDER, agreed w/resident/PA/CLOTH WASHER BACK TENDER, reviewed EMR data (avail), discussed with nursing, discussed with case mgmt, amended to note Attending Assessment/Plan: Patient looks much better today. She appears less agitated. On examination and entry has improved bilaterally. She remains without added sounds. She remains on baseline oxygen supplementation. Given a clinical improvement will discontinue Solu-Medrol and begin patient on prednisone. Patient remains clinically stable she will be discharged home tomorrow. Her LFTs are trending downwards. HIDA scan was negative for cholecystitis. Transaminitis likely related to her History of chronic alcohol abuse. Her CIWA scores have been low and she has not required benzodiazepine therapy. Will discontinue further CIWA Monitoring. She is declining further evaluation of her vaginal discharge. She did receive a dose of Diflucan prior to admission. She should follow-up with the gynecology service as an outpatient.
--- NOTE | 2018-01-26 08:49 | PN- Pulmonary ---
Subjective HPI/Critical Care Issues: Patient is more comfortable at rest but continues to have dyspnea on exertion. Cardiac ultrasound shows mild pulmonary hypertension. Prior sleep study results will be sought she continues to be oxygen dependent Objective Current Medications: Current Medications Sig/Ida Start time Last Medication Dose Route Stop Time Status Admin Albuterol Sulfate 3 ML EVERY 4 HRS/AWAKE 01/24 1200 AC 01/26 INH 0756 Aripiprazole 20 MG AT BEDTIME 01/24 2100 AC 01/25 PO 2214 Azithromycin 250 MG Q24H 01/24 2100 AC 01/25 PO 2215 Enoxaparin Sodium 40 MG DAILY 01/24 09 AC 01/25 SC 0817 Gabapentin 300 MG TID 01/24 900 AC 01/25 PO 2215 Insulin Aspart 0 AT BEDTIME 01/26 0400 AC 01/26 SC 0400 Insulin Aspart 12 UNITS ONCE ONE 01/25 1915 DC 01/25 VA 01/25 1916 1912 Insulin Aspart 4 UNITS ONCE ONE 01/25 1900 CAN SC 01/25 1901 Insulin Aspart 2 UNITS ONCE ONE 01/25 1645 DC 01/25 VA 01/25 1646 1642 Insulin Aspart 0 TIDAC 01/25 0800 AC 01/25 SC 1608 Insulin Detemir 8 UNITS BID 01/25 2100 AC 01/25 SC 2222 Ipratropium [place] 2.5 ML EVERY 4 HRS/AWAKE 01/24 1200 AC 01/26 INH 0756 Lorazepam 0.5 MG ONCE ONE 01/25 1315 DC 01/25 IV 01/25 1316 1316 Losartan Potassium 50 MG DAILY 01/24 900 AC 01/25 PO 0818 Melatonin 5 MG AT BEDTIME 01/24 2100 AC 01/25 PO 2215 Methylprednisolone 40 MG BID 01/25 2100 DC 01/25 IV 2216 Methylprednisolone 40 MG Q8 01/24 2200 DC 01/25 IV 0548 Nystatin 5 ML 4 TIMES/DAY 01/24 900 AC 01/25 PO 2216 Nystatin 1 ARUNA BID 01/24 0239 AC 01/25 TOP 2216 Oxybutynin Chloride 5 MG TID 01/24 900 AC 01/25 PO 2214 Paroxetine HCl 40 MG DAILY 01/24 900 AC 01/25 PO 0818 Patient Medication 1 ED ONE ONE 01/25 1130 DC 01/25 Teaching ED 01/25 1131 1609 Prednisone 40 MG DAILY 01/26 0900 AC PO Vital Signs & I&O Last 24 Hrs of Vitals and I&O: Vital Signs Date Time Temp Pulse Resp B/P B/P Pulse O2 O2 Flow FiO2 Mean Ox Delivery Rate 01/26 0759 93 Nasal 4.0L Cannula 01/26 0600 98.0 87 20 146/76 01/26 0200 98.1 90 20 140/70 01/26 0000 95 Nasal 4.0L Cannula 01/25 2219 98.1 92 20 130/70 93 Nasal Cannula 01/25 2200 98.1 92 20 130/70 01/25 1800 98.2 90 20 130/70 01/25 1610 92 Nasal 4.0L Cannula 01/25 1600 Nasal 4.0L Cannula 01/25 1200 97.9 79 20 169/95 01/25 1000 97.9 78 20 169/95 01/25 0856 92 Nasal 4.0L Cannula Intake & Output 01/26 1600 01/26 0800 01/26 0000 Intake Total 70 500 Output Total Balance 70 500 Intake, IV 10 Intake, Oral 60 500 Number 1 1 Bowel Movements Oxygen saturation on 4 L 93% exam for chest shows diminished breath sounds are no wheezes or crackles cardiac exam shows a regular S1 and S2 without murmurs Impression/Plan Impression/Plan Impression/Plan: 53-year-old admitted with exacerbation of COPD and is slowly improving. Results of prior sleep study will be sought as there is a high index of suspicion of sleep apnea clinically Recommendations: Begin slow prednisone taper. Continue bronchodilator regimen. Assess oxygen saturation with ambulation. Complete course of Zithromax.
[2018-01-26 13:54] VITALS: BP 135/72
--- NOTE | 2018-01-26 15:56 | Patient Discharge Instructions ---
Discharge Instructions General Discharge Information You were seen/treated for: COPD Exacerbation Gallstones Special Instructions: 1. Take medications as prescribed. 2. Follow up with the lotus notes administrator for sleep study and follow up. 3. Follow up with your pcp within 1 week of discharge and have repeat liver function tests (bloodwork) in 1 week. 4. Follow up with the GI doctor for further evaluation of your gallbladder and for colonoscopy. Diet Continue normal diet: No Recommended Diet: Diabetic Acute Coronary Syndrome Inclusion Criteria At DC or during hospital stay patient has or had the following: ACS DIAGNOSIS No Discharge Core Measures Meds if any: Prescribed or Continued at Discharge Meds if any: NOT Prescribed or Continued at Discharge Congestive Heart Failure Inclusion Criteria At DC or during hospital stay patient has or had the following: CHF DIAGNOSIS No Discharge Core Measures Meds if any: Prescribed or Continued at Discharge Meds if any: NOT Prescribed or Continued at Discharge Cerebrovascular accident Inclusion Criteria At DC or during hospital stay patient has or had the following: CVA/TIA Diagnosis No Discharge Core Measures Meds if any: Prescribed or Continued at Discharge Meds if any: NOT Prescribed or Continued at Discharge Venous thromboembolism Discharge Core Measures - Per Current guidelines, there needs to be overlap - treatment for the first 5 days of Warfarin therapy. - If discharged on Warfarin prior to 5 days of - overlap therapy, the patient will need to be - assessed for post discharge needs including - *Post discharge parental anticoagulation - *Warfarin and/or parental anticoagulation education - *Follow up date to check INR post discharge Meds if any: Prescribed or Continued at Discharge Note: Overlap Therapy is Warfarin and Anticoagulant Meds if any: NOT Prescribed or Continued at Discharge
[2018-01-26 22:06] VITALS: BP 130/80
[2018-01-27 06:36] VITALS: BP 140/80
--- NOTE | 2018-01-27 07:32 | PN- Housestaff ---
Edith GILLIS,Cuong 01/27/18 0731: Subjective Follow-up For: COPD Exacerbation Uncontrolled DM Elevated Transaminases Subjective: Patient was seen and examined today. Reports improvement in breathing. Concerned about her sodium today. Denies any pain, cough, fever/chills, abdominal pain, dysuria/hematuria. Continues to have vaginal discharge. States she will use the monistat at home. Review of Systems Constitutional: Reports: see HPI. Objective Last 24 Hrs of Vital Signs/I&O Vital Signs Date Time Temp Pulse Resp B/P B/P Pulse O2 O2 Flow FiO2 Mean Ox Delivery Rate 01/27 0941 91 Nasal 4.0L Cannula 01/27 0854 97.8 89 20 140/80 01/27 0636 97.8 89 20 140/80 95 Nasal 4.0L Cannula 01/27 0000 94 Nasal 4.0L Cannula 01/26 2206 98.0 91 22 130/80 94 Nasal Cannula 01/26 1646 92 Nasal 4.0L Cannula 01/26 1600 Nasal 3.0L Cannula 01/26 1354 98.2 89 22 135/72 94 Nasal Cannula Intake & Output 01/27 1600 01/27 0800 01/27 0000 Intake Total 250 250 Output Total Balance 250 250 Intake, IV 10 Intake, Oral 240 250 Number 1 Bowel Movements Physical Exam General Appearance: Alert, Cooperative, No Acute Distress HEENT: Atraumatic, Mucous Membr. moist/pink Cardiovascular: Regular Rate, Normal S1, Normal S2 Lungs: decreased air entry bilaterally improved from previous day Abdomen: Normal Bowel Sounds, Soft, No Tenderness Neurological: Normal Speech Extremities: No Clubbing, No Cyanosis, No Edema, Normal Pulses, No Tenderness/ Swelling Current Medications: Current Medications Sig/Ida Start time Last Medication Dose Route Stop Time Status Admin Albuterol Sulfate 3 ML EVERY 4 HRS/AWAKE 01/24 1200 AC 01/27 INH 0824 Aripiprazole 20 MG AT BEDTIME 01/24 2100 AC 01/26 PO 2039 Azithromycin 250 MG Q24H 01/24 2100 AC 01/26 PO 204 Enoxaparin Sodium 40 MG DAILY 01/24 09 AC 01/27 SC 0854 Gabapentin 300 MG TID 01/24 09 AC 01/27 PO 0854 Insulin Aspart 0 AT BEDTIME 01/26 0400 AC 01/26 SC 204 Insulin Aspart 0 TIDAC 01/25 08 AC 01/27 SC 0853 Insulin Detemir 8 UNITS BID 01/25 2100 AC 01/27 SC 0853 Ipratropium [place] 2.5 ML EVERY 4 HRS/AWAKE 01/24 1200 AC 01/27 INH 0824 Losartan Potassium 50 MG DAILY 01/24 900 AC 01/27 PO 0854 Melatonin 5 MG AT BEDTIME 01/24 2100 AC 01/26 PO 2040 Miconazole Nitrate 1 SUP AT BEDTIME 01/26 2100 AC VAG Nystatin 5 ML 4 TIMES/DAY 01/24 900 AC 01/27 PO 0853 Nystatin 1 ARUNA BID 01/24 0239 AC 01/27 TOP 0854 Oxybutynin Chloride 5 MG TID 01/24 900 AC 01/27 PO 0854 Paroxetine HCl 40 MG DAILY 01/24 900 AC 01/27 PO 0854 Prednisone 40 MG DAILY 01/26 900 AC 01/27 PO 0854 Vitamin E 400 IU DAILY 01/27 09 AC PO Last 24 Hrs of Lab/Ryne Results Last 24 Hrs of Labs/Mics: Laboratory Tests 01/27/18 0715: Anion Gap 8, Estimated GFR > 60, BUN/Creatinine Ratio 34.0 H, Iron 81, TIBC 301 , Ferritin 734.0 H, Total Bilirubin 0.5, Direct Bilirubin 0.2, AST 315 H, ALT 189 H, Alkaline Phosphatase 72, Total Protein 5.9 L, Albumin 3.1 L, TSH 2.050 , Free T4 0.90, Hepatitis A IgM Ab NONREACTIVE, Hep Bs Antigen NONREACTIVE, Hep B Core IgM Ab Conf NONREACTIVE, Hepatitis C Antibody NONREACTIVE, HIV 1&2 Ab Western Blot NONREACTIVE Assessment/Plan Assessment: Patient is a 53-year-old female with a PMH significant for COPD on nocturnal supplemental O2 3 L, and 5 L when ambulating, bipolar disorder, overactive bladder, HTN, who was brought into the [facility] ED by ambulance complaining of worsening dyspnea, productive cough with greenish sputum. Patient presented to [facility] ED on 01/12/18 with similar complaints, but refused to be admitted. Patient has diminished breath sounds diffusely, Braxton sign positive, mild respiratory distress. Vital signs on presentation: T 99.7, P1 20, RR 24, BP 174/88, pulse ox 92% on 5 L O2 nasal cannula Labs: WBC 9.5, H/H 14.7/42.9, platelets 167, sodium 130, potassium 4.3, chloride 89, CO2 26, BUN 7, creatinine 0.5, glucose 313, AST 148, ALT 106, d-dimer 243 CXR with no signs of acute pathology Problem list 1. COPD exacerbation Patient continues to require 4L NC at rest and with ambulation. Patient's respiratory status appears to be improving. * continue on PO prednisone today, with a taper * continue PO Azithromycin for 2 more days * continue oxygen supplementation and wean down as tolerated to keep oxygen >92% * continue TRC/DuoNeb * pulmonology consulted. Follow up appointment with Dr. Bergeron on 02/07 ECHO to look at pulmonary pressures - appear to be elevated with RVSP of 45mmHg. 2. Hepatic Steatosis - likely mutlifactorial with obesity, hyperglycemia, alcohol use and steroids. Evaluated by GI. Patient worked up for elevated LFTs with ultrasound showing sludge and stones in the gallbladder and mildly dilated CBD. Transaminitis with Braxton sign positive, patient endorses daily drinking of 2 beers and recent episodes of binge drinking Ultrasound of liver today is unremarkable. There is sludge and some stones in the gallbladder. HIDA scan was wnl with ejection fraction of 39%. Further follow up outpatient with GI. * monitor LFTs * outpatient follow up with GI 3. Type 2 diabetes, uncontrolled Blood sugars elevated likely secondary to significant steroid use for COPD exacerbation. Blood sugars were signficantly elevated overnight. Levemir was added. Patient's sugars remain high - likely attributed to steroid use however hemoglobin A1c today was 12.7 which is higher than her previous one. She does not appear to be controlled on Januvia only. Patient also reports that she is intermittently taking the medication. * continue novolog high dose sliding scale * continue accuchecks TIDAC/qHS * consistent carbohydrate diet * continue levemir 8 units BID 4. Mild hyponatremia likely secondary to SIADH in the setting of chronic lung disease. Appears to be improving with fluid restriction. * continue fluid restriction * repeat Na in AM 5. Vaginal discharge Patient reports white vaginal discharge with mild irritation. Reports she recently completed a course of diflucan for yeast infection. Patient reports the vaginal discharge appears to be subsiding. Patient is refusing speculum exam to send specimen for pH, culture/microscopy. * likely yeast infection - will try monistat * further evaluation outpatient with gyn physician DVT PPx: ALPS, Heparin SQ Diet: Diabetic diet Code: Full code Problem List: 1. COPD exacerbation 2. Transaminitis 3. Fatty liver 4. Morbid obesity 5. Type 2 diabetes mellitus Pain Ratin Pain Location: n/a Pain Goal: Remain pain free Pain Plan: prn Tomorrow's Labs & Rationales: none [place] GILLIS,[place] 01/27/18 1406: Attending MD Review Statement Attending Statement Attending MD Statement: examined this patient, discuss w/resident/PA/HOB MACHINE OPERATOR, agreed w/resident/PA/HOB MACHINE OPERATOR, reviewed EMR data (avail), discussed with nursing, discussed with case mgmt, amended to note Attending Assessment/Plan: Patient seen and examined. Sitting up comfortably in bed and not in any acute distress. She does not appear agitated or short of breath. She is maintaining saturation on 4 L of oxygen. She has improved air entry bilaterally with no added sounds. From a COPD standpoint she is doing better today. She has been transitioned to prednisone and will continue on a taper upon discharge. Transaminases elevated above baseline today. Alkaline phosphatase is within normal limits suggesting hepatocellular pattern. Most likely related to her chronic alcohol use. HIDA scan showed no evidence of cholecystitis. She does have gallstones however normal alkaline phosphatase level results any obstructive hepatobiliary process at present. She should follow-up with the gastroenterology service as an outpatient. Blood glucose levels remain poorly controlled. She was started on Levemir insulin last night. Patient is clearly noncompliant with her diet as she also admits to not being compliant with Januvia therapy at home. She does not monitor her blood glucose levels at home. She has been evaluated by the endocrinology service and recommendations appreciated. She will be started on additional oral hypoglycemic medications and he will be discharged on NPH insulin. Patient does not appear motivated at all to administer on insulin. She wants her boyfriend to administer the medication. We will have to perform insulin teaching to the boyfriend and ensure that he carries this out upon discharge. we will also schedule the patient with visiting nurse care in order to ensure compliance with her therapy.
[2018-01-27] MEDS ORDERED: MICONAZOLE NIT100 MG VAG (08:17)
[2018-01-27] MEDS ORDERED: AZITHROMYCIN250 M1 PO (08:17)
[2018-01-27] MEDS ORDERED: LEVEMIR FL100 UNIT/1 SC (08:17)
[2018-01-27] MEDS ORDERED: PREDNISONE10 M2 PO (08:17)
--- NOTE | 2018-01-27 08:49 | PN- Pulmonary ---
Subjective HPI/Critical Care Issues: Shortness of breath is improved and discharge is anticipated for today Objective Current Medications: Current Medications Sig/Ida Start time Last Medication Dose Route Stop Time Status Admin Albuterol Sulfate 3 ML EVERY 4 HRS/AWAKE 01/24 1200 AC 01/27 INH 0824 Aripiprazole 20 MG AT BEDTIME 01/24 2100 AC 01/26 PO 2040 Azithromycin 250 MG Q24H 01/24 2100 AC 01/26 PO 2040 Enoxaparin Sodium 40 MG DAILY 01/24 09 AC 01/26 SC 0854 Gabapentin 300 MG TID 01/24 0900 AC 01/26 PO 2040 Insulin Aspart 0 AT BEDTIME 01/26 0400 AC 01/26 SC 2041 Insulin Aspart 0 TIDAC 01/25 0800 AC 01/26 SC 1735 Insulin Detemir 8 UNITS BID 01/25 2100 AC 01/26 SC 204 Ipratropium [place] 2.5 ML EVERY 4 HRS/AWAKE 01/24 1200 AC 01/27 INH 0824 Losartan Potassium 50 MG DAILY 01/24 0900 AC 01/26 PO 0859 Melatonin 5 MG AT BEDTIME 01/24 2100 AC 01/26 PO 2040 Miconazole Nitrate 1 SUP AT BEDTIME 01/26 2100 AC VAG Nystatin 5 ML 4 TIMES/DAY 01/24 0900 AC 01/26 PO 2043 Nystatin 1 ARUNA BID 01/24 0239 AC 01/26 TOP 204 Oxybutynin Chloride 5 MG TID 01/24 0900 AC 01/26 PO 2042 Paroxetine HCl 40 MG DAILY 01/24 0900 AC 01/26 PO 0853 Patient Medication 1 ED ONE ONE 01/26 1115 DC 01/26 Teaching ED 01/26 1116 1735 Prednisone 40 MG DAILY 01/26 0900 AC 01/26 PO 1022 Vital Signs & I&O Last 24 Hrs of Vitals and I&O: Vital Signs Date Time Temp Pulse Resp B/P B/P Pulse O2 O2 Flow FiO2 Mean Ox Delivery Rate 01/27 0636 97.8 89 20 140/80 95 Nasal 4.0L Cannula 01/27 0000 94 Nasal 4.0L Cannula 01/26 2206 98.0 91 22 130/80 94 Nasal Cannula 01/26 1646 92 Nasal 4.0L Cannula 01/26 1600 Nasal 3.0L Cannula 01/26 1354 98.2 89 22 135/72 94 Nasal Cannula 01/26 0859 103 143/83 Intake & Output 01/27 1600 01/27 0800 01/27 0000 Intake Total 250 250 Output Total Balance 250 250 Intake, IV 10 Intake, Oral 240 250 Number 1 Bowel Movements Oxygen saturation 4 L 95% exam for chest shows diminished breath sounds are no wheezes or crackles cardiac exam shows regular S1 and S2 without murmurs Impression/Plan Impression/Plan Impression/Plan: 53-year-old with COPD is clinically improved and stable for discharge Recommendations: Begin slow prednisone taper. Continue bronchodilator regimen. Assess oxygen saturation with ambulation. Complete course of Zithromax. Follow-up in the office for schedule of sleep study. Recommend referral to COPD wellness clinic
--- NOTE | 2018-01-27 12:38 | Cons- Endocrinology ---
General Information and HPI Consulting Request Date of Consult: 01/27/18 Requested By: medical team Reason for Consult: UNCONTROLLED DIABETES Source of Information: patient, old records Exam Limitations: poor historian History of Present Illness: This 53-year-old woman has at least 2 year history of diabetes mellitus associated with morbid obesity. She has a history of COPD and came in the hospital with exacerbation of COPD. She has been on prednisone and her sugars have been in the 300 range. The patient more recently was started on insulin. At home the patient was Bina was taking Januvia alone. She was followed at [facility]. She was not checking her sugars at home. He has never been tried on metformin or other drugs. She denies any diabetic eye disease or kidney disease. She denies any numbness or tingling of her fingers or toes. Allergies/Medications Allergies: Coded Allergies: No Known Allergies (09/14/17) Home Med List: Albuterol Sulfate 2.5 MG/3 ML (0.083 %) VIAL.NEB 1 Vial INH/GENET PRN RESPIRATORY (Reported) Albuterol Sulfate (Proair Respiclick) 90 MCG AER.POW.BA 2 PUFF INH Q4-6 PRN COPD Aripiprazole (Abilify) 20 MG TABLET 1 TAB PO QPM MENTAL HEALTH (Reported) Azithromycin 250 MG TABLET 250 MG PO Q24H COPD Budesonide/Formoterol Fumarate (Symbicort 160-4.5 Mcg Inhaler) 10.2 GM HFA.AER.AD 2 PUF INH BID COPD Gabapentin 300 MG CAPSULE 1 CAP PO TID MENTAL HEALTH (Reported) Glimepiride 2 MG TABLET 4 MG PO DAILY AC DIABETES Hydroxyzine Pamoate (Vistaril) 50 MG CAPSULE 2 CAP PO QPM SLEEP (Reported) Insulin NPH Human Isophane (Humulin N Kwikpen) 100 UNIT/ML (3 ML) INSULN.PEN 16 UNITS SC DAILY AC DIABETES Loperamide HCl (Anti-Diarrheal) 2 MG CAPSULE 3 CAP PO DAILY DIARRHEA ( Reported) Losartan Potassium 50 MG TABLET 1 TAB PO DAILY HTN (Reported) Melatonin 5 MG TABLET SLEEP (Reported) Metformin Hydochloride (Glucophage) 500 MG TABLET 500 MG PO 0800,1700 DIABETES Miconazole Nitrate 100 MG SUPP.VAG 1 SUP VAG AT BEDTIME VAGINAL INFECTION Nystatin 100,000 UNIT/ML ORAL.SUSP 5 ML PO 4 TIMES/DAY thrush Oxybutynin Chloride 5 MG TABLET 1 TAB PO TID BLADDER (Reported) Paroxetine HCl 40 MG TABLET 1 TAB PO DAILY MENTAL HEALTH (Reported) Prednisone 10 MG TABLET 0 PO SEE ADMIN CRITERIA COPD 3 TAB DAILY ON 01/29 TO 01/31 2 TAB DAILY ON 02/01 TO 02/03 1 TAB DAILY ON 02/04 TO 02/06 Sitagliptin Phosphate (Januvia) 100 MG TABLET 1 TAB PO DAILY DIABETES Tiotropium [place] (Spiriva) 18 MCG CAP.W.DEV 1 CAP INH DAILY RESPIRATORY ( Reported) Current Medications: Current Medications Sig/Ida Start time Last Medication Dose Route Stop Time Status Admin Albuterol Sulfate 3 ML EVERY 4 HRS/AWAKE 01/24 1200 AC 01/27 INH 1150 Aripiprazole 20 MG AT BEDTIME 01/24 2100 AC 01/26 PO 2040 Azithromycin 250 MG Q24H 01/24 2100 AC 01/26 PO 2040 Enoxaparin Sodium 40 MG DAILY 01/24 09 AC 01/27 SC 0854 Gabapentin 300 MG TID 01/24 0900 AC 01/27 PO 0854 Insulin Aspart 0 AT BEDTIME 01/26 0400 AC 01/26 SC 2041 Insulin Aspart 0 TIDAC 01/25 0800 AC 01/27 SC 0853 Insulin Detemir 8 UNITS BID 01/25 2100 AC 01/27 SC 0853 Ipratropium [place] 2.5 ML EVERY 4 HRS/AWAKE 01/24 1200 AC 01/27 INH 1150 Losartan Potassium 50 MG DAILY 01/24 0900 AC 01/27 PO 0854 Melatonin 5 MG AT BEDTIME 01/24 2100 AC 01/26 PO 2040 Miconazole Nitrate 1 SUP AT BEDTIME 01/26 2100 AC VAG Nystatin 5 ML 4 TIMES/DAY 01/24 09 AC 01/27 PO 0853 Nystatin 1 ARUNA BID 01/24 0239 AC 01/27 TOP 0854 Oxybutynin Chloride 5 MG TID 01/24 09 AC 01/27 PO 0854 Paroxetine HCl 40 MG DAILY 01/24 0900 AC 01/27 PO 0854 Prednisone 40 MG DAILY 01/26 0900 AC 01/27 PO 0854 Vitamin E 400 IU DAILY 01/27 0936 AC PO Review of Systems Review of Systems Constitutional: Denies: chills, fever. Cardiovascular: Denies: chest pain. Respiratory: Reports: cough, short of breath. Genitourinary: Denies: dysuria. Skin: Reports: no symptoms. Past History Travel History Traveled to [place] past 21 day No Medical History Blood Transfusion Hx: No Neurological: NONE EENT: NONE Cardiovascular: hypertension, hyperlipidemia (borderline) Respiratory: COPD, 02 DEPENDENT PRN- 3L hs & 5L with ambulation Gastrointestinal: CHRONIC DIARRHEA "IBS" Hepatic: cholelithiasis (prob incidental), fatty liver Renal: nephrolithiasis, OVERACTIVE BLADDER Musculoskeletal: NONE Psychiatric: anxiety, bipolar disease, depression, alcohol abuse Endocrine: diabetes, obesity Blood Disorders: NONE Cancer(s): NONE THREAD WINDER/Reproductive: yeast infections Surgical History Surgical History: DEVIATED SEPTUM REPAIRED TUBAL LIGATION Family History Relations & Conditions If Any: MOTHER, , Age 77; Cause: Myocardial infarction. Cervical cancer, Onset: 30-40. FH: breast cancer, Onset: 50-60. FH: myocardial infarction, Onset: 40-50. FATHER (Hit by ambulance). , Age 69; Cause: MVA (motor vehicle accident) . SON (4 mos old). , Age Infancy; Cause: SIDS (sudden syndrome). SON (EtOH pancreatitis). Age 30-40. DAUGHTER ([employer]). Age 23. Psychosocial History Where Do You Live? Home Who Do You Live With? child (son), boyfriend Services at Home: Oxygen Primary Language: Malay Smoking Status: Former Smoker (80 pack years, quit in 04/2017) ETOH Use: heavy use (> 48 oz beer daily & binge) Illicit Drug Use: denies illicit drug use Living Will? no Power of Equipment Processor/HCP? no Other Social History: . Lives with boyfriend & her son. Had 3 children (1 son- 4 mos- SIDS). 1 son, Sudeep- 30, hx EtOH pancreatitis. 1 dtr- [employer]. Ex-80-pk-yr cigarette smoker, D/C 04/2017. EtOH abuse > 48 oz beer daily & occ binge drinking. Denied illicit drugs or IVDA. No tattoos. 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 Functional Ability ADLs Independent: dressing, eating, toileting, bathing. Ambulation: independent IADLs Independent: shopping, housework, finances, food prep, telephone, transportation , medication admin. Employment History Employment: Disability ECHO Results (as available) Date of last Echo 01/24/18 EF% 65 Exam & Diagnostic Data Last 24 Hrs of Vital Signs/I&O Vital Signs Date Time Temp Pulse Resp B/P B/P Pulse O2 O2 Flow FiO2 Mean Ox Delivery Rate 01/27 0941 91 Nasal 4.0L Cannula 01/27 0854 97.8 89 20 140/80 01/27 0636 97.8 89 20 140/80 95 Nasal 4.0L Cannula 01/27 0000 94 Nasal 4.0L Cannula 01/26 2206 98.0 91 22 130/80 94 Nasal Cannula 01/26 1646 92 Nasal 4.0L Cannula 01/26 1600 Nasal 3.0L Cannula 01/26 1354 98.2 89 22 135/72 94 Nasal Cannula Intake & Output 01/27 0801/27 0000 Intake Total 250 250 Output Total Balance 250 250 Intake, IV 10 Intake, Oral 240 250 Number 1 Bowel Movements Vital Signs Date Time Temp Pulse Resp B/P B/P Pulse O2 O2 Flow FiO2 Mean Ox Delivery Rate 01/27 0941 91 Nasal 4.0L Cannula 01/27 0854 97.8 89 20 140/80 01/27 0636 97.8 89 20 140/80 95 Nasal 4.0L Cannula 01/27 0000 94 Nasal 4.0L Cannula 01/26 2206 98.0 91 22 130/80 94 Nasal Cannula 01/26 1646 92 Nasal 4.0L Cannula 01/26 1600 Nasal 3.0L Cannula 01/26 1354 98.2 89 22 135/72 94 Nasal Cannula Intake & Output 01/27 1600 01/27 0801/27 0000 Intake Total 250 250 Output Total Balance 250 250 Intake, IV 10 Intake, Oral 240 250 Number 1 Bowel Movements Physical Exam General Appearance: alert, awake, comfortable Head: normal appearance Eyes: Bilateral: normal appearance. Respiratory: decreased breath sounds Cardiovascular: tachycardia Gastrointestinal: normal bowel sounds, soft Extremities: normal inspection Labs/Ryne Results: Laboratory Tests 01/27 01/26 01/26 0715 0855 0855 Chemistry Sodium (137 - 145 mmol/L) 134 L 135 L Potassium (3.5 - 5.1 mmol/L) 4.1 4.6 Chloride (98 - 107 mmol/L) 91 L 93 L Carbon Dioxide (22 - 30 mmol/L) 36 H 33 H Anion Gap (5 - 16) 8 9 BUN (7 - 17 mg/dL) 17 21 H Creatinine (0.5 - 1.0 mg/dL) 0.5 0.5 Estimated GFR (>60 ml/min) > 60 > 60 BUN/Creatinine Ratio (7 - 25 %) 34.0 H 42.0 H Hemoglobin A1c (4.2 - 5.8 %) 12.7 H Iron (37 - 170 ug/dL) 81 TIBC (265 - 497 ug/dL) 301 Ferritin (11.1 - 264 ng/mL) 734.0 H Total Bilirubin (0.2 - 1.3 mg/dL) 0.5 Direct Bilirubin (< 0.4 mg/dL) 0.2 AST (14 - 36 U/L) 315 H ALT (9 - 52 U/L) 189 H Alkaline Phosphatase (<127 U/L) 72 Total Protein (6.3 - 8.2 g/dL) 5.9 L Albumin (3.5 - 5.0 g/dL) 3.1 L TSH (0.270 - 4.200 uIU/mL) 2.050 Free T4 (0.64 - 1.79 ng/dL) 0.90 Serology Hepatitis A IgM Ab (NONREACTIVE) NONREACTIVE Hep Bs Antigen (NONREACTIVE) NONREACTIVE Hep B Core IgM Ab Conf (NONREACTIVE) NONREACTIVE Hepatitis C Antibody (NONREACTIVE) NONREACTIVE HIV 1&2 Ab Western Blot (NONREACTIVE) NONREACTIVE Assessment/Plan Assessment/Plan This patient has a history of type 2 diabetes associated with morbid obesity. She is currently on prednisone which is aggravating her blood sugars. He is on 40 mg of prednisone once a day. This will peak at early to late evening. However looking at the blood sugars at the present time they are all in the 300 range. Even in the morning she is waking up with high sugar. The patient does not wish to go home on insulin. However she will need at least one injection of insulin per day. We would use NPH in the morning to counteract the effect of prednisone. We can also introduce medications to help lower her sugar but I am not sure how effective they will be in this setting. Continue Levemir for today. Tomorrow a.m. begin NPH insulin 16 units each a.m. and stop Levemir. while in the hospital continue sliding scale NovoLog before meals only. We can reduce the sliding scale somewhat because we are beginning NPH. Sliding scale NovoLog before meals should be 80-150 give 4 units NovoLog, 151-200 give 6 units NovoLog, 201-250 give 8 units NovoLog, 251-300 give 9 units NovoLog, 301-350 give 10 units NovoLog, 351-400 give 11 units NovoLog. We can also begin the patient on metformin 500 mg twice a day. Begin today also glimepiride 4 mg once a day. Consult Acknowledgment - Thank you for your consult request.
[2018-01-27 13:12] LABS: PT 11.1 SEC (9.4-12.5); PTT 25 SEC (25-37)
[2018-01-27 13:19] VITALS: BP 144/77
[2018-01-27 22:17] VITALS: BP 140/80
[2018-01-28 06:55] VITALS: BP 132/90
--- NOTE | 2018-01-28 07:36 | PN- Housestaff ---
Edith GILLIS,Cuong 01/28/18 0735: Subjective Follow-up For: COPD Exacerbation Uncontrolled DM Elevated Transaminases Subjective: Patient was seen and examined today. Denies any complaints today, but is looking forward to going home. Hesistant in giving herself insulin. FS, 202, 263, 392 Currently saturating on 3L (baseline). Review of Systems Constitutional: Reports: see HPI. Objective Last 24 Hrs of Vital Signs/I&O Vital Signs Date Time Temp Pulse Resp B/P B/P Pulse O2 O2 Flow FiO2 Mean Ox Delivery Rate 01/28 0903 97.9 85 20 132/90 01/28 0749 96 Nasal 3.0L Cannula 01/28 0655 97.9 85 20 132/90 96 Nasal 3.0L Cannula 01/28 0000 Nasal 3.0L Cannula 01/27 2217 98.4 79 20 140/80 96 Nasal Cannula 01/27 1605 93 Nasal 3.0L Cannula 01/27 1600 94 Nasal 3.0L Cannula 01/27 1319 98.2 93 20 144/77 97 Intake & Output 01/28 1600 01/28 0800 01/28 0000 Intake Total 100 100 Output Total Balance 100 100 Intake, Oral 100 100 Patient 187 lb Weight Physical Exam General Appearance: Alert, Cooperative, No Acute Distress HEENT: Atraumatic, Mucous Membr. moist/pink Cardiovascular: Regular Rate, Normal S1, Normal S2 Lungs: decreased airentry bilaterally, no wheezing, improved from prior day Abdomen: Normal Bowel Sounds, Soft, No Tenderness Neurological: Normal Speech, Cranial Nerves 3-12 NL Extremities: No Clubbing, No Cyanosis, No Edema, Normal Pulses, No Tenderness/ Swelling Current Medications: Current Medications Sig/Ida Start time Last Medication Dose Route Stop Time Status Admin Albuterol Sulfate 3 ML EVERY 4 HRS/AWAKE 01/24 1200 AC 01/28 INH 0748 Aripiprazole 20 MG AT BEDTIME 01/24 2100 AC 01/27 PO 2027 Azithromycin 250 MG Q24H 01/24 2100 AC 01/27 PO 2027 Enoxaparin Sodium 40 MG DAILY 01/24 900 AC 01/28 SC 903 Gabapentin 300 MG TID 01/24 900 AC 01/28 PO 09 Glimepiride 4 MG DAILY AC 01/27 1300 AC 01/28 PO 05 Insulin Aspart 0 AT BEDTIME 01/26 0400 AC 01/27 SC 2032 Insulin Aspart 0 TIDAC 01/25 0800 AC 01/27 SC 1652 Insulin Detemir 8 UNITS BID 01/25 2100 DC 01/27 SC 2032 Insulin Human NPH 16 UNITS 1/2H BEFOR/BREAKFAST 01/28 0700 AC 01/28 SC 09 Ipratropium [place] 2.5 ML EVERY 4 HRS/AWAKE 01/24 1200 AC 01/28 INH 0748 Losartan Potassium 50 MG DAILY 01/24 0900 AC 01/28 PO 09 Melatonin 5 MG AT BEDTIME 01/24 2100 AC 01/27 PO 2026 Metformin HCl 500 MG 0800,1700 01/27 1700 AC 01/28 PO 0903 Miconazole Nitrate 1 SUP AT BEDTIME 01/26 2100 AC VAG Nystatin 5 ML 4 TIMES/DAY 01/24 09 DC 01/27 PO 2027 Nystatin 1 ARUNA BID 01/24 0239 DC 01/27 TOP 2028 Oxybutynin Chloride 5 MG TID 01/24 09 AC 01/28 PO 09 Paroxetine HCl 40 MG DAILY 01/24 0900 AC 01/28 PO 0903 Patient Medication 1 ED ONE ONE 01/27 1645 CA Teaching ED 01/27 1646 Prednisone 40 MG DAILY 01/26 0900 AC 01/28 PO 0903 Vitamin E 400 IU DAILY 01/27 0936 AC 01/28 PO 0903 Last 24 Hrs of Lab/Ryne Results Last 24 Hrs of Labs/Mics: Laboratory Tests 01/28/18 0820: Anion Gap 10, Estimated GFR > 60, BUN/Creatinine Ratio 30.0 H, Total Bilirubin 0.8, Direct Bilirubin 0.2, AST 338 H, ALT 337 H, Alkaline Phosphatase 75, Total Protein 6.4, Albumin 3.4 L 01/27/18 1250: PT 11.1, INR 1.02, APTT 25 Assessment/Plan Assessment: Patient is a 53-year-old female with a PMH significant for COPD on nocturnal supplemental O2 3 L, and 5 L when ambulating, bipolar disorder, overactive bladder, HTN, who was brought into the [facility] ED by ambulance complaining of worsening dyspnea, productive cough with greenish sputum. Patient presented to ED on 01/12/18 with similar complaints, but refused to be admitted. Patient has diminished breath sounds diffusely, Braxton sign positive, mild respiratory distress. Vital signs on presentation: T 99.7, P1 20, RR 24, BP 174/88, pulse ox 92% on 5 L O2 nasal cannula Labs: WBC 9.5, H/H 14.7/42.9, platelets 167, sodium 130, potassium 4.3, chloride 89, CO2 26, BUN 7, creatinine 0.5, glucose 313, AST 148, ALT 106, d-dimer 243 CXR with no signs of acute pathology Problem list 1. COPD exacerbation Patient is now at her baseline of 3L NC. Respiratory status continues to improve * continue on PO prednisone today, with a taper * continue PO Azithromycin for 1 more day * continue oxygen supplementation and wean down as tolerated to keep oxygen >92% * continue TRC/DuoNeb * pulmonology consulted. Follow up appointment with Dr. Bergeron on 02/07 2. ECHO to look at pulmonary pressures - appear to be elevated with RVSP of 45mmHg. Likely secondary to signifcant COPD and also patient is at high risk of obstructive sleep apnea. * Follow up with Dr. Bergeron for sleep study referal 3. Hepatic Steatosis - likely mutlifactorial with obesity, hyperglycemia, alcohol use and steroids. Evaluated by GI. Patient worked up for elevated LFTs with ultrasound showing sludge and stones in the gallbladder and mildly dilated CBD. Transaminitis with Braxton sign positive, patient endorses daily drinking of 2 beers and recent episodes of binge drinking Ultrasound of liver today is unremarkable. There is sludge and some stones in the gallbladder. HIDA scan was wnl with ejection fraction of 39%. Further follow up outpatient with GI. * monitor LFTs * outpatient follow up with GI 4. Type 2 diabetes, uncontrolled Blood sugars elevated likely secondary to significant steroid use for COPD exacerbation. Blood sugars were signficantly elevated overnight. Levemir was added. Patient's sugars remain high - likely attributed to steroid use however hemoglobin A1c today was 12.7 which is higher than her previous one. She does not appear to be controlled on Januvia only. Patient also reports that she is intermittently taking the medication. Sugars markedly improved from previous days after starting metformin, glimipderide and adjusting novlog ss. Patient was seen by endocrinology. Will be started on NPH as well. Patient continues to remain hesitant in giving herself insulin. Patient will require diabetic teaching in the hospital and require VNA services to help her until she is comfortable. * continue novolog sliding scale per endocrinology * continue accuchecks TIDAC/qHS * consistent carbohydrate diet * levemir discontinued today * started on NPH 16 units in AM * continued metformin and glimiperide * endocrinology following. Will require close outpatient follow up. 4. Mild hyponatremia likely secondary to SIADH in the setting of chronic lung disease. Resolved * continue fluid restriction 5. Vaginal discharge Patient reports white vaginal discharge with mild irritation. Reports she recently completed a course of diflucan for yeast infection. Patient reports the vaginal discharge appears to be subsiding. Patient is refusing speculum exam to send specimen for pH, culture/microscopy. * likely yeast infection - will try monistat * further evaluation outpatient with clinical research specialist DVT PPx: ALPS, Heparin SQ Diet: Diabetic diet Code: Full code Problem List: 1. COPD exacerbation 2. Transaminitis 3. Uncontrolled diabetes mellitus Pain Ratin Pain Location: n/a Pain Goal: Remain pain free Pain Plan: n/a Tomorrow's Labs & Rationales: none Lincoln Rhoades MD 01/28/18 1137: Attending MD Review Statement Attending Statement Attending MD Statement: examined this patient, discuss w/resident/PA/CHIEF MEDIA OFFICER, agreed w/resident/PA/CHIEF MEDIA OFFICER, reviewed EMR data (avail), discussed with nursing, discussed with case mgmt, amended to note Attending Assessment/Plan: Resting comfortably and not in any acute distress. No issues overnight reported by nursing staff. Blood glucose levels have improved this morning. Endocrinology follow-up appreciated. We will continue patient on current regimen in anticipation of discharge tomorrow. Patient remains reluctant to administer insulin to herself at home. It is unclear if her significant other will be able to adequately administer insulin to the patient at home. In view of this we have made arrangements for visiting nurses to follow-up with the patient daily to administer her insulin in the morning. Patient will continue on her oral hypoglycemics as well. Her transaminase levels remain elevated however this is likely due to her alcoholic liver disease. She is to follow-up with the gastroenterology service as an outpatient. She remains stable from a COPD standpoint. She is on her baseline oxygen supplementation. She will be discharged home on a prednisone taper.
--- NOTE | 2018-01-28 07:38 | PN- Diabetes ---
Assessment/Plan Diabetes Assessment: Patient states she feels okay today. The patient is presently on metformin 500 mg twice a day. We also began glimepiride 4 mg daily. Her prednisone dose is 40 mg each a.m. Levemir has been stopped and she is scheduled to get 16 units of NPH in the morning to counteract the effects of the prednisone. The patient sugar this morning is 154 before breakfast. Plan: The pattern of blood sugars with a single dose of prednisone in the morning is for blood sugars to be high late in the day and to come down by the next morning. We are transitioning the patient to a more simplified insulin regimen with only one shot of NPH a day and relying more on oral agents to control her diabetes. I think it would be prudent to keep the patient in the hospital today to see how this regimen works. Further adjustments may be necessary. The patient needs to be instructed on her diet and how to check her sugar at home. The symptoms of hypoglycemia should be discussed with her. He should always have the source of sugar with her either glucose tablets or candy in case her sugar gets low. In addition she would need to learn how to take one shot of NPH insulin per day. Subjective Subjective: Feels okay Review of Systems Constitutional: Denies: chills, fever. Cardiovascular: Denies: chest pain. Gastrointestinal: Denies: abdominal pain, nausea, vomiting. Skin: Reports: no symptoms. Objective Last 24 Hrs of Vital Signs/I&O Vital Signs Date Time Temp Pulse Resp B/P B/P Pulse O2 O2 Flow FiO2 Mean Ox Delivery Rate 01/28 0655 97.9 85 20 132/90 96 Nasal 3.0L Cannula 01/28 0000 Nasal 3.0L Cannula 01/27 2217 98.4 79 20 140/80 96 Nasal Cannula 01/27 1605 93 Nasal 3.0L Cannula 01/27 1600 94 Nasal 3.0L Cannula 01/27 1319 98.2 93 20 144/77 97 01/27 0941 91 Nasal 4.0L Cannula 01/27 0854 97.8 89 20 140/80 01/27 0800 94 Nasal 4.0L Cannula Intake & Output 01/28 0800 01/28 0000 01/27 1600 Intake Total 100 300 Output Total Balance 100 300 Intake, Oral 100 300 Vital Signs Date Time Temp Pulse Resp B/P B/P Pulse O2 O2 Flow FiO2 Mean Ox Delivery Rate 01/28 655 97.9 85 20 132/90 96 Nasal 3.0L Cannula 01/28 0000 Nasal 3.0L Cannula 01/27 2217 98.4 79 20 140/80 96 Nasal Cannula 01/27 1605 93 Nasal 3.0L Cannula 01/27 1600 94 Nasal 3.0L Cannula 01/27 1319 98.2 93 20 144/77 97 01/27 0941 91 Nasal 4.0L Cannula 01/27 0854 97.8 89 20 140/80 01/27 0800 94 Nasal 4.0L Cannula Intake & Output 01/28 0800 01/28 0000 01/27 1600 Intake Total 100 300 Output Total Balance 100 300 Intake, Oral 100 300 Physical Exam General Appearance: alert, awake, comfortable Neck: normal inspection Respiratory: decreased breath sounds Abdomen: normal bowel sounds Extremities: normal inspection Current Medications: Current Medications Sig/Ida Start time Last Medication Dose Route Stop Time Status Admin Albuterol Sulfate 3 ML EVERY 4 HRS/AWAKE 01/24 1200 AC 01/27 INH 2119 Aripiprazole 20 MG AT BEDTIME 01/24 2100 AC 01/27 PO 2027 Azithromycin 250 MG Q24H 01/24 2100 AC 01/27 PO 2027 Enoxaparin Sodium 40 MG DAILY 01/24 09 AC 01/27 AR 0854 Gabapentin 300 MG TID 01/24 09 AC 01/27 PO 2027 Glimepiride 4 MG DAILY AC 01/27 1300 AC 01/28 PO 0544 Insulin Aspart 0 AT BEDTIME 01/26 0400 AC 01/27 AR 2032 Insulin Aspart 0 TIDAC 01/25 08 AC 01/27 AR 165 Insulin Detemir 8 UNITS BID 01/25 2100 VA 01/27 AR 2032 Insulin Human NPH 16 UNITS 1/2H BEFOR/BREAKFAST 01/28 0700 SC Ipratropium [place] 2.5 ML EVERY 4 HRS/AWAKE 01/24 1200 AC 01/27 INH 2119 Losartan Potassium 50 MG DAILY 01/24 09 AC 01/27 PO 853 Melatonin 5 MG AT BEDTIME 01/24 2100 AC 01/27 PO 2026 Metformin HCl 500 MG 0800,1700 01/27 1700 AC 01/27 PO 165 Miconazole Nitrate 1 SUP AT BEDTIME 01/26 2100 AC VAG Nystatin 5 ML 4 TIMES/DAY 01/24 09 AC 01/27 PO 2027 Nystatin 1 ARUNA BID 01/24 0239 DC 01/27 TOP 2028 Oxybutynin Chloride 5 MG TID 01/24 900 AC 01/27 PO 2026 Paroxetine HCl 40 MG DAILY 01/24 900 AC 01/27 PO 0854 Patient Medication 1 ED ONE ONE 01/27 1645 DC Teaching ED 01/27 1646 Prednisone 40 MG DAILY 01/26 09 AC 01/27 PO 0854 Vitamin E 400 IU DAILY 01/27 0936 AC 01/27 PO 1256 Findings Pertinent Lab/Ryne Results: Laboratory Tests 01/27 01/27 01/26 01/26 1250 0715 0855 0855 Chemistry Sodium (137 - 145 mmol/L) 134 L 135 L Potassium (3.5 - 5.1 mmol/L) 4.1 4.6 Chloride (98 - 107 mmol/L) 91 L 93 L Carbon Dioxide (22 - 30 mmol/L) 36 H 33 H Anion Gap (5 - 16) 8 9 BUN (7 - 17 mg/dL) 17 21 H Creatinine (0.5 - 1.0 mg/dL) 0.5 0.5 Estimated GFR (>60 ml/min) > 60 > 60 BUN/Creatinine Ratio (7 - 25 %) 34.0 H 42.0 H Hemoglobin A1c (4.2 - 5.8 %) 12.7 H Iron (37 - 170 ug/dL) 81 TIBC (265 - 497 ug/dL) 301 Ferritin (11.1 - 264 ng/mL) 734.0 H Total Bilirubin (0.2 - 1.3 mg/dL) 0.5 Direct Bilirubin (< 0.4 mg/dL) 0.2 AST (14 - 36 U/L) 315 H ALT (9 - 52 U/L) 189 H Alkaline Phosphatase (<127 U/L) 72 Total Protein (6.3 - 8.2 g/dL) 5.9 L Albumin (3.5 - 5.0 g/dL) 3.1 L TSH (0.270 - 4.200 uIU/mL) 2.050 Free T4 (0.64 - 1.79 ng/dL) 0.90 Coagulation PT (9.4 - 12.5 SEC) 11.1 INR (0.90 - 1.19) 1.02 APTT (25 - 37 SEC) 25 Serology Hepatitis A IgM Ab (NONREACTIVE) NONREACTIVE Hep Bs Antigen (NONREACTIVE) NONREACTIVE Hep B Core IgM Ab Conf (NONREACTIVE) NONREACTIVE Hepatitis C Antibody (NONREACTIVE) NONREACTIVE HIV 1&2 Ab Western Blot (NONREACTIVE) NONREACTIVE
--- NOTE | 2018-01-28 08:36 | PN- Pulmonary ---
Subjective HPI/Critical Care Issues: Respiratory status is improved. Diabetes management is being addressed Objective Current Medications: Current Medications Sig/Ida Start time Last Medication Dose Route Stop Time Status Admin Albuterol Sulfate 3 ML EVERY 4 HRS/AWAKE 01/24 1200 AC 01/28 INH 0748 Aripiprazole 20 MG AT BEDTIME 01/24 2100 AC 01/27 PO 2027 Azithromycin 250 MG Q24H 01/24 2100 AC 01/27 PO 2027 Enoxaparin Sodium 40 MG DAILY 01/24 09 AC 01/27 SC 0854 Gabapentin 300 MG TID 01/24 0900 AC 01/27 PO 2027 Glimepiride 4 MG DAILY AC 01/27 1300 AC 01/28 PO 0544 Insulin Aspart 0 AT BEDTIME 01/26 0400 AC 01/27 SC 2032 Insulin Aspart 0 TIDAC 01/25 0800 AC 01/27 SC 165 Insulin Detemir 8 UNITS BID 01/25 2100 DC 01/27 SC 2032 Insulin Human NPH 16 UNITS 1/2H BEFOR/BREAKFAST 01/28 0700 SC Ipratropium [place] 2.5 ML EVERY 4 HRS/AWAKE 01/24 1200 AC 01/28 INH 0748 Losartan Potassium 50 MG DAILY 01/24 09 AC 01/27 PO 0854 Melatonin 5 MG AT BEDTIME 01/24 2100 AC 01/27 PO 2026 Metformin HCl 500 MG 0800,1700 01/27 1700 AC 01/27 PO 165 Miconazole Nitrate 1 SUP AT BEDTIME 01/26 2100 AC VAG Nystatin 5 ML 4 TIMES/DAY 01/24 09 AC 01/27 PO 2027 Nystatin 1 ARUNA BID 01/24 0239 DC 01/27 TOP 2028 Oxybutynin Chloride 5 MG TID 01/24 09 AC 01/27 PO 2026 Paroxetine HCl 40 MG DAILY 01/24 0900 AC 01/27 PO 0854 Patient Medication 1 ED ONE ONE 01/27 1645 DC Teaching ED 01/27 1646 Prednisone 40 MG DAILY 01/26 09 AC 01/27 PO 0854 Vitamin E 400 IU DAILY 01/27 0936 AC 01/27 PO 1256 Vital Signs & I&O Last 24 Hrs of Vitals and I&O: Vital Signs Date Time Temp Pulse Resp B/P B/P Pulse O2 O2 Flow FiO2 Mean Ox Delivery Rate 01/28 0749 96 Nasal 3.0L Cannula 01/28 0655 97.9 85 20 132/90 96 Nasal 3.0L Cannula 01/28 0000 Nasal 3.0L Cannula 01/27 2217 98.4 79 20 140/80 96 Nasal Cannula 01/27 1605 93 Nasal 3.0L Cannula 01/27 1600 94 Nasal 3.0L Cannula 01/27 1319 98.2 93 20 144/77 97 01/27 0941 91 Nasal 4.0L Cannula 01/27 0854 97.8 89 20 140/80 Intake & Output 01/28 1600 01/28 0800 01/28 0000 Intake Total 100 100 Output Total Balance 100 100 Intake, Oral 100 100 Oxygen saturation 3 L 96% exam for chest shows diminished breath sounds or wheezes cardiac exam shows regular S1 and S2 without murmurs Impression/Plan Impression/Plan Impression/Plan: 53-year-old woman with COPD is improved glycemic control is being optimized Recommendations: Begin slow prednisone taper. Continue bronchodilator regimen. Assess oxygen saturation with ambulation. Complete course of Zithromax. Follow-up in the office for schedule of sleep study. Recommend referral to COPD wellness clinic Taper FiO2 with improved saturations
[2018-01-28] MEDS ORDERED: PREDNISONE10 M2 PO (11:23)
[2018-01-28] MEDS ORDERED: AZITHROMYCIN250 M1 PO (11:23)
[2018-01-28] MEDS ORDERED: GLIMEPIRIDE2 MG PO (11:23)
[2018-01-28] MEDS ORDERED: GLUCOPHAGE500 M1 PO (11:23)
[2018-01-28] MEDS ORDERED: HUMULIN N100 UNIT/2 SC (11:36)
[2018-01-28 14:51] VITALS: BP 173/93
[2018-01-28 18:18] VITALS: BP 130/82
[2018-01-28 22:05] VITALS: BP 155/95
[2018-01-29 06:46] VITALS: BP 168/100
--- NOTE | 2018-01-29 08:41 | PN- Housestaff ---
See Addendum Subjective Follow-up For: COPD exacerbation DM hyperglycemia Subjective: no new complaints, wishes to be discharge today on baseline amount of oxygen afebrile Review of Systems Constitutional: Reports: see HPI. Objective Last 24 Hrs of Vital Signs/I&O Vital Signs Date Time Temp Pulse Resp B/P B/P Pulse O2 O2 Flow FiO2 Mean Ox Delivery Rate 01/29 0919 168/100 01/29 0820 97 Nasal 3.0L Cannula 01/29 0646 97.6 88 22 168/100 98 Nasal 3.0L Cannula 01/29 0000 Nasal 3.0L Cannula 01/28 2212 Nasal 3.0L Cannula 01/28 2205 98.1 89 18 155/95 99 01/28 1818 98.0 88 20 130/82 97 Nasal 3.0L Cannula 01/28 1603 Nasal 3.0L Cannula 01/28 1451 98.0 90 20 173/93 96 Nasal Cannula Intake & Output 01/29 1600 01/29 0800 01/29 0000 Intake Total 100 240 Output Total Balance 100 240 Intake, Oral 100 240 Physical Exam General Appearance: Alert, Oriented X3, Cooperative, No Acute Distress, obese, on supplemental oxygen Cardiovascular: Regular Rate, Normal S1, Normal S2, No Murmurs Lungs: diminished air movement, no audible wheezing Current Medications: Current Medications Sig/Ida Start time Last Medication Dose Route Stop Time Status Admin Albuterol Sulfate 3 ML EVERY 4 HRS/AWAKE 01/24 1200 AC 01/29 INH 0819 Aripiprazole 20 MG AT BEDTIME 01/24 2100 AC 01/28 PO 203 Azithromycin 250 MG Q24H 01/24 2100 DC 01/28 PO 203 Enoxaparin Sodium 40 MG DAILY 01/24 0900 AC 01/29 SC 0915 Gabapentin 300 MG TID 01/24 0900 AC 01/29 PO 0919 Glimepiride 4 MG DAILY AC 01/27 1300 AC 01/29 PO 0655 Guaifenesin 600 MG Q12 01/29 1012 AC PO Insulin Aspart 0 AT BEDTIME 01/26 0400 AC 01/28 SC 203 Insulin Aspart 0 TIDAC 01/25 0800 AC 01/28 MN 1725 Insulin Human NPH 16 UNITS 1/2H BEFOR/BREAKFAST 01/28 0700 AC 01/29 SC 0655 Ipratropium [place] 2.5 ML EVERY 4 HRS/AWAKE 01/24 1200 AC 01/29 INH 0819 Losartan Potassium 50 MG DAILY 01/24 0900 AC 01/29 PO 918 Melatonin 5 MG AT BEDTIME 01/24 2100 AC 01/28 PO 2030 Metformin HCl 500 MG 0800,1700 01/27 1700 AC 01/29 PO 09 Miconazole Nitrate 1 SUP AT BEDTIME 01/26 2100 AC VAG Oxybutynin Chloride 5 MG TID 01/24 09 AC 01/29 PO 918 Paroxetine HCl 40 MG DAILY 01/24 09 AC 01/29 PO 09 Prednisone 40 MG DAILY 01/26 09 AC 01/29 PO 0918 Vitamin E 400 IU DAILY 01/27 09 AC 01/28 PO 902 Assessment/Plan Assessment: 53-year-old female with a PMH significant for COPD on nocturnal supplemental O2 3 L, and 5 L when ambulating, bipolar disorder, overactive bladder, HTN, who was brought into the [facility] ED by ambulance complaining of worsening dyspnea, productive cough with greenish sputum. 1. COPD exacerbation Patient is now at her baseline of 3L NC. Respiratory status continues to improve * continue on PO prednisone today, with a taper * continue PO Azithromycin for 1 more day * continue oxygen supplementation and wean down as tolerated to keep oxygen >92% * continue TRC/DuoNeb * pulmonology consulted. Follow up appointment with Dr. Bergeron on 02/07 2. ECHO to look at pulmonary pressures - appear to be elevated with RVSP of 45mmHg. Likely secondary to signifcant COPD and also patient is at high risk of obstructive sleep apnea. * Follow up with Dr. Bergeron for sleep study referal 3. Hepatic Steatosis - likely mutlifactorial with obesity, hyperglycemia, alcohol use and steroids. Evaluated by GI. Patient worked up for elevated LFTs with ultrasound showing sludge and stones in the gallbladder and mildly dilated CBD. Transaminitis with Braxton sign positive, patient endorses daily drinking of 2 beers and recent episodes of binge drinking Ultrasound of liver today is unremarkable. There is sludge and some stones in the gallbladder. HIDA scan was wnl with ejection fraction of 39%. Further follow up outpatient with GI. * monitor LFTs * outpatient follow up with GI 4. Type 2 diabetes, uncontrolled Blood sugars elevated likely secondary to significant steroid use for COPD exacerbation. Blood sugars were signficantly elevated overnight. Levemir was added. Patient's sugars remain high - likely attributed to steroid use however hemoglobin A1c today was 12.7 which is higher than her previous one. She does not appear to be controlled on Januvia only. Patient also reports that she is intermittently taking the medication. Sugars markedly improved from previous days after starting metformin, glimipderide and adjusting novlog ss. Patient was seen by endocrinology. Will be started on NPH as well. Patient continues to remain hesitant in giving herself insulin. Patient will require diabetic teaching in the hospital and require VNA services to help her until she is comfortable. * continue novolog sliding scale per endocrinology * continue accuchecks TIDAC/qHS * consistent carbohydrate diet * levemir discontinued today * started on NPH 16 units in AM * continued metformin and glimiperide * endocrinology following. Will require close outpatient follow up. 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 COPD 2. Uncontrolled diabetes mellitus 3. Morbid obesity Pain Ratin Pain Location: n/a Pain Goal: Pain 4 or less Pain Plan: prn Tomorrow's Labs & Rationales: none, stable for discharge
[2018-01-29 09:19] VITALS: BP 168/100
[2018-01-29] MEDS ORDERED: AZITHROMYCIN250 M1 PO (10:38)
[2018-01-29] MEDS ORDERED: GLUCOPHAGE500 M1 PO (10:38)
[2018-01-29] MEDS ORDERED: MICONAZOLE NIT100 MG VAG (10:38)
[2018-01-29] MEDS ORDERED: GLIMEPIRIDE2 MG PO (10:38)
[2018-01-29] MEDS ORDERED: PREDNISONE10 M2 PO (10:38)
[2018-01-29] MEDS ORDERED: HUMULIN N100 UNIT/2 SC (10:38)
== END 2018-01-29 12:05 | disposition home health service (06) | DRG 133 ==
LOC: ERH 20:18 → 2NA 01-24 00:26 → ERHI 01-24 00:26 → ENRESERV 01-24 00:52 → 2NA 01-24 01:39 → ENPENDDIS 01-29 10:41 → 2NA 01-29 12:05
PROVIDERS: Physician Assistant Medical; Student in an Organized Health Care Education/Training Program
DX: J96.21 Acute and chronic respiratory failure with hypoxia (principal); J44.1 Chronic obstructive pulmonary disease with (acute) exacerbation; E66.01 Morbid (severe) obesity due to excess calories; J44.0 Chronic obstructive pulmonary disease with (acute) lower respiratory infection; J20.9 Acute bronchitis, unspecified; Z99.81 Dependence on supplemental oxygen; Z87.891 Personal history of nicotine dependence; E11.65 Type 2 diabetes mellitus with hyperglycemia; Z79.84 Long term (current) use of oral hypoglycemic drugs; Z68.39 Body mass index [BMI] 39.0-39.9, adult; E22.2 Syndrome of inappropriate secretion of antidiuretic hormone; B37.0 Candidal stomatitis; R74.0 Nonspecific elevation of levels of transaminase and lactic acid dehydrogenase [LDH]; Z72.89 Other problems related to lifestyle; F31.9 Bipolar disorder, unspecified; N32.81 Overactive bladder; K80.80 Other cholelithiasis without obstruction; K58.0 Irritable bowel syndrome with diarrhea; F10.10 Alcohol abuse, uncomplicated; Z79.51 Long term (current) use of inhaled steroids; N89.8 Other specified noninflammatory disorders of vagina; K76.0 Fatty (change of) liver, not elsewhere classified
CPT/HCPCS: 2NAP; 36415; 36592; 71045; 78226; 80307; 81001; 82436; 87040; 87070; 87086; 87389; 87449; 87450; 93005; 93010; 93306; 96372; 96374; 96375; 99291; A9537; G0480; J0131; J0401; J0456; J0696; J1650; J1815; J2920; J2930; J7040